=== PATIENT | female | born 1940 | race Caucasian/White ===

== ENCOUNTER 2017-08-21 15:14 | Inpatient (IN) | payer OTHER ==
--- NOTE | 2017-08-21 15:16 | PDOC ---
Rapid Medical Evaluation Time Seen by Provider: 08/21/17 15:14 Medical Evaluation: Allergies Allergy/AdvReac Type Severity Reaction Status Date / Time No Known Allergies Allergy Verified 01/28/15 23:27 08/21/17 15:15 This is a 77 year old female with a history of asthma, HTN, hypothyroidism, peptic ulcer, and HLD brought in by her family for shortness of breath, chest pain, and vomiting today. She has had these symptoms for two weeks since returning from a cruise, but they are worse today. Of note, she fell while on the cruise and was wheelchair-bound for over a week after that. V/s notable for HR 104. EKG Cardiac labs CXR To Main ED for further evaluation
[2017-08-21 16:04] LABS: BASO % 0.5 % (0-2.0); EOS % 1.7 % (0-4.5); HEMATOCRIT 35.5 % (32.4-45.2); LYMPH % 11.3 % (8-40); MCH 30.9 pg (25.7-33.7); MCHC 33.7 g/dl (32.0-36.0); MEAN CELL VOLUME 91.6 fl (80-96); MONO % 3.2 % (3.8-10.2); NEUT % 83.3 % (42.8-82.8); PLATELET COUNT 458 K/MM3 (134-434); RBC 3.88 M/mm3 (3.60-5.2); RDW 14.3 % (11.6-15.6); WHITE BLOOD COUNT 11.2 K/mm3 (4.0-10.0)
[2017-08-21 16:35] LABS: ALBUMIN 3.8 g/dl (3.4-5.0); ANION GAP 9 (8-16); BLOOD UREA NITROGEN 46 mg/dL (7-18); CHLORIDE 103 mmol/L (98-107); CO2 25 mmol/L (21-32); GLUCOSE,RANDOM 173 mg/dL (74-106); POTASSIUM 4.2 mmol/L (3.5-5.1); SGOT/AST 15 U/L (15-37); SODIUM 137 mmol/L (136-145)
[2017-08-21 16:41] LABS: ALK PHOS 126 U/L (45-117); BILIRUBIN,TOTAL 0.3 mg/dL (0.2-1.0); CREATININE 1.5 mg/dL (0.55-1.02); SGPT/ALT 19 U/L (12-78); TOT PROT 7.5 g/dl (6.4-8.2)
[2017-08-21 16:45] LABS: INR 1.02 (0.82-1.09); PROTHROMBIN TIME (PATIENT) 11.5 SEC (9.98-11.88)
[2017-08-21 16:51] LABS: URINE APPEARANCE CLEAR; URINE BILIRUBIN NEGATIVE (NEGATIVE); URINE BLOOD 2+ (NEGATIVE); URINE COLOR YELLOW; URINE GLUCOSE (UA) NEGATIVE (NEGATIVE); URINE KETONE NEGATIVE (NEGATIVE); URINE LEUK ESTERASE TRACE (NEGATIVE); URINE NITRITE NEGATIVE (NEGATIVE); URINE PROTEIN NEGATIVE (NEGATIVE)
[2017-08-21 17:08] LABS: LIPASE 480 U/L (73-393)
[2017-08-21 17:14] LABS: EPI CELLS RARE /HPF (FEW); URINE HYALINE CAST 1 /lpf; URINE MUCUS RARE
[2017-08-21] MEDS ORDERED: PANTOPRAZOLE SODIUM 40 MG in SODIUM CHLORIDE 100 ML IVPB ONE (20:03)
[2017-08-21] MEDS ORDERED: ONDANSETRON 4 MG/2 ML VIAL IVPUSH ONE (20:03)
[2017-08-21] MEDS ORDERED: SODIUM CHLORIDE 0.9% 1000 ML INFUS.BAG IV ONE (20:03)
[2017-08-21] MEDS ORDERED: FAMOTIDINE 20 MG/50 ML IVPB 20 MG/50 ML MG IVPB ONE ×2 (20:15→20:53)
[2017-08-21] MEDS ORDERED: PANTOPRAZOLE SODIUM 40 MG VIAL ONE (20:22)
[2017-08-21] MEDS ORDERED: ONDANSETRON 4 MG/2 ML VIAL ONE (20:22)
--- NOTE | 2017-08-21 20:22 | PDOC ---
History of Present Illness - General Chief Complaint: Pain Stated Complaint: CHEST PAIN Time Seen by Provider: 08/21/17 15:14 History Source: Patient, Family Exam Limitations: No Limitations - History of Present Illness Initial Comments: 08/21/17 20:13 The patient is a 77F with a PMH of asthma, HTN, hypothyroidism, peptic ulcer, and HLD who presents to the ER with approximately 15 days of vomiting and abdominal pain. The patient states that her abdominal pain is epigastric, radiates bilaterally across her abdomen horizontally, and occurs after eating foods. She has been vomiting every time after eating food and cannot keep anything down. Of note, she was on a cruise for 2 weeks and the symptoms occurred after 1 week of being on the cruise. She denies any history of drinking or any drinking on the cruise. She admits to mild nausea and abdominal pain. She denies any fevers, chills, CP, SOB, diarrhea, or constipation. Past History - Past Medical History Allergies/Adverse Reactions: Allergies Allergy/AdvReac Type Severity Reaction Status Date / Time Sulfa (Sulfonamide Allergy Verified 08/21/17 15:15 Antibiotics) Home Medications: Ambulatory Orders Amlodipine Besylate [Norvasc -] 2.5 mg PO DAILY 01/28/15 Levothyroxine [Synthroid -] 50 mcg PO DAILY 01/28/15 Omeprazole [Prilosec (RX)] 20 mg PO DAILY 01/28/15 Paroxetine HCl [Paxil] 30 mg PO DAILY 01/28/15 Simvastatin [Zocor -] 20 mg PO HS 01/28/15 Valsartan [Diovan] 320 mg PO DAILY 01/28/15 Albuterol Sulfate [Proventil HFA Inhaler -] 1 - 2 inh PO TID 08/21/17 Prednisone [Deltasone -] 10 mg PO DAILY 08/21/17 Asthma: Yes COPD: No GI Disorders: Yes (gastric ulcer) HTN: Yes Hypercholesterolemia: Yes Thyroid Disease: Yes (hypo) - Immunization History Immunization Up to Date: Yes - Suicide/Smoking/Psychosocial Hx Smoking History: Never smoked Information on smoking cessation initiated: No Hx Alcohol Use: No Drug/Substance Use Hx: No Substance Use Type: None Review of Systems - Review of Systems Able to Perform ROS?: Yes Comments:: 08/21/17 20:23 GENERAL/CONSTITUTIONAL: No fever or chills. No weakness. HEAD, EYES, EARS, NOSE AND THROAT: No change in vision. No ear pain or discharge. No sore throat. CARDIOVASCULAR: No chest pain, palpitations, or lightheadedness. RESPIRATORY: No cough, wheezing, shortness of breath, or hemoptysis. GASTROINTESTINAL: Positive for abdominal pain, nausea, and vomiting. No diarrhea or constipation. GENITOURINARY: No dysuria, frequency, hematuria, or change in urination. MUSCULOSKELETAL: No joint or muscle swelling or pain. No neck or back pain. SKIN: No rash or lesions. NEUROLOGIC: No headache, numbness, tingling, weakness, loss of consciousness, or change in strength/sensation. ENDOCRINE: No increased thirst. No abnormal weight change. HEMATOLOGIC/LYMPHATIC: No anemia, easy bleeding, or history of blood clots. ALLERGIC/IMMUNOLOGIC: No hives or skin allergy. Is the patient limited Kenyan proficient: No *Physical Exam - Vital Signs Last Vital Signs Temp Pulse Resp BP Pulse Ox 98.3 F 104 H 18 113/72 100 08/21/17 15:16 08/21/17 15:16 08/21/17 15:16 08/21/17 15:16 08/21/17 15:16 - Physical Exam Comments: 08/21/17 20:24 GENERAL: Well developed, well nourished. Awake and alert. No acute distress. HEENT: Normocephalic, atraumatic. Hearing grossly normal. Moist mucous membranes. PERRLA, EOMI. No conjunctival pallor. Sclera are non-icteric. NECK: Supple. Full ROM. No JVD. CARDIOVASCULAR: Regular rate and rhythm. No murmurs, rubs, or gallops. PULMONARY: No evidence of respiratory distress. Lungs clear to auscultation bilaterally. No wheezing, rales or rhonchi. ABDOMINAL: Soft. Non-tender. Non-distended. No rebound or guarding. GENITOURINARY: No CVA tenderness bilaterally. MUSCULOSKELETAL: Normal range of motion at all joints. No bony deformities or tenderness. EXTREMITIES: No cyanosis. No clubbing. No edema. No calf tenderness. SKIN: Warm and dry. Normal capillary refill. No rashes. No jaundice. NEUROLOGICAL: Alert, awake, appropriate. Cranial nerves 2-12 intact. Normal speech. Gait is normal without ataxia. PSYCHIATRIC: Cooperative. Good eye contact. Appropriate mood and affect. Heart Score/ECG Review #1 ECG reviewed & interpreted by me at: 20:24 General ECG Interpretation: Sinus Rhythm, Normal Rate, Normal Intervals, No acute ischemic changes ED Treatment Course - LABORATORY CBC & Chemistry Diagram: 08/21/17 15:45 08/21/17 15:45 - ADDITIONAL ORDERS Additional order review: Laboratory Results 08/21/17 08/21/17 08/21/17 16:09 15:45 15:45 PT with INR 11.50 INR 1.02 Sodium 137 Potassium 4.2 Chloride 103 Carbon Dioxide 25 Anion Gap 9 BUN 46 H Creatinine 1.5 H Creat Clearance w eGFR 33.76 Random Glucose 173 H Calcium 9.0 Total Bilirubin 0.3 AST 15 ALT 19 Alkaline Phosphatase 126 H Creatine Kinase 58 Troponin I < 0.02 Total Protein 7.5 Albumin 3.8 Lipase 480 H Urine Color Yellow Urine Appearance Clear Urine pH 5.0 Ur Specific [place] 1.023 Urine Protein Negative Urine Glucose (UA) Negative Urine Ketones Negative Urine Blood 2+ H Urine Nitrite Negative Urine Bilirubin Negative Urine Urobilinogen 2.0 H Ur Leukocyte Esterase Trace Urine WBC (Auto) 1 Urine RBC (Auto) 2 Ur Epithelial Cells Rare Hyaline Casts 1 Urine Mucus Rare 08/21/17 15:45 RBC 3.88 MCV 91.6 MCHC 33.7 RDW 14.3 MPV 8.0 Neutrophils % 83.3 H Lymphocytes % 11.3 Monocytes % 3.2 L Eosinophils % 1.7 Basophils % 0.5 Medical Decision Making - Medical Decision Making 08/21/17 20:32 The patient is a 77F with a PMH of peptic ulcers who presents with epigastric pain with an elevated lipase. I am concerned for gallstone pancreatitis because the patient has no hx of drinking, worsening peptic ulcers 2/2 anti- inflammatory use. I will order a RUQ U/S to r/o gallstones, will give IVF, pepcid, protonix, and zofran. Pending imaging and disposition. 08/21/17 22:03 RUQ U/S negative for cholecystitis and cholelithiasis. Hospitalist microblogged for admission. 08/21/17 22:[address] De for admission. *DC/Admit/Observation/Transfer Diagnosis at time of Disposition: Epigastric pain - Discharge Dispostion Condition at time of disposition: Stable Admit: Yes - Referrals Referrals: Latoya Wilson MD [Primary Care Provider] - - Patient Instructions - Post Discharge Activity
--- NOTE | 2017-08-21 21:09 | PDOC ---
Attending Attestation - Resident Resident Name: NaveenRai hazel - ED Attending Attestation I have performed the following: I have examined & evaluated the patient, The case was reviewed & discussed with the resident, I agree w/resident's findings & plan, Exceptions are as noted - HPI HPI: 08/21/17 21:07 77 year old female pt c/ hx PUD, HLD p/w epigastric pain x 2 weeks. States has developed postprandial pain and emesis. States radiates to mid back. +nausea and vomiting. Denies diarrhea. States eating makes symptoms worse. Denies hx of gallstones or alcohol. No fevers, chills. Pt unable to tolerate much PO given pain. Came into ED. - Physicial Exam PE: 08/21/17 21:07 GENERAL: Awake, alert, and fully oriented, in no acute distress. HEAD: No signs of trauma EYES: PERRLA, EOMI, sclera anicteric, conjunctiva clear ENT: Auricles normal inspection, hearing grossly normal, nares patent, NECK: Normal ROM, supple LUNGS: Breath sounds equal, clear to auscultation bilaterally. No wheezes, and no crackles HEART: Regular rate and rhythm, normal S1 and S2, no murmurs, rubs or gallops ABDOMEN: Soft, normoactive bowel sounds. No guarding, no rebound. No masses. TTP epigastric. Negative abebe sign. EXTREMITIES: Normal range of motion, no edema. No clubbing or cyanosis. No cords, erythema, or tenderness NEUROLOGICAL: Cranial nerves II through XII grossly intact. Normal speech, normal gait SKIN: Warm, Dry, normal turgor, no rashes or lesions noted. - Medical Decision Making 08/21/17 21:08 CBC, BMP 08/21/17 15:45 08/21/17 15:45 CMP Sodium 137 mmol/L (136-145) 08/21/17 15:45 Potassium 4.2 mmol/L (3.5-5.1) 08/21/17 15:45 Chloride 103 mmol/L (98-107) 08/21/17 15:45 Carbon Dioxide 25 mmol/L (21-32) 08/21/17 15:45 Anion Gap 9 (8-16) 08/21/17 15:45 BUN 46 mg/dL (7-18) H 08/21/17 15:45 Creatinine 1.5 mg/dL (0.55-1.02) H 08/21/17 15:45 Creat Clearance w eGFR 33.76 (>60) 08/21/17 15:45 Random Glucose 173 mg/dL (74-106) H 08/21/17 15:45 Calcium 9.0 mg/dL (8.5-10.1) 08/21/17 15:45 Total Bilirubin 0.3 mg/dL (0.2-1.0) 08/21/17 15:45 AST 15 U/L (15-37) 08/21/17 15:45 ALT 19 U/L (12-78) 08/21/17 15:45 Alkaline Phosphatase 126 U/L (45-117) H 08/21/17 15:45 Creatine Kinase 58 IU/L (26-192) 08/21/17 15:45 Troponin I < 0.02 ng/ml (0.00-0.05) 08/21/17 15:45 Total Protein 7.5 g/dl (6.4-8.2) 08/21/17 15:45 Albumin 3.8 g/dl (3.4-5.0) 08/21/17 15:45 Lipase 480 U/L (73-393) H 08/21/17 15:45 Labs reviewed. Pt noted with lipase of 480. Symptoms appears concerning for pancreatitis. Will obtain RUQ u/s to r/o gallstones. Admit.
[2017-08-21] MEDS ORDERED: ONDANSETRON 4 MG/2 ML VIAL IVPUSH PRN (23:03)
--- NOTE | 2017-08-21 23:04 | HP ---
<Santino Smith - Last Filed: 08/22/17 00:55> CHIEF COMPLAINT: epigastric pain and vomiting HISTORY OF PRESENT ILLNESS: 77F with a PMH of asthma, HTN, hypothyroidism, peptic ulcer, and HLD came to er with a complaint of pain in epigastric area, nausea and vomiting since two week. Patient states that she has a fall 3 week ago and was started on anti-inflamatory drug by a doctor [place] for back pain. After taking that medicine for a week she started having epigastric pain, severe in intensity( now 3/10), burning type, intermittent, gets worse after eating, radiates to both side and back, gets better itself. She also reports vomiting after eating, contain food particle, no blood, vomit occurs 15-20 minutes after eating. She also reports that she is able to take her po meds and some time able to eat her meal. Today came to hospital vomiting got worse.Few days ago she went to urgent care for same problem and was advised to stop pain meds and was started on prednisone and albuterol for sob. Denies diarrhoea, blood in stool, change in weight, yellow discoloration of skin, abdominal distension. States she is passing a flatus. She also reports last EGD was done 4 years which showed ulcers and was started on omeprazol 20mg bis but she was only taking it once a day. Denies chest pain, sob, cough, palpitations, burning micturation, change in frequency of micturation. ER course was notable for: (1)cbc, cmp, ua, lipase (2)ultrasound Recent Travel: went on a [place]. PAST MEDICAL HISTORY: as above PAST SURGICAL HISTORY: none Social History: Smoking: stopped 30 years ago Alcohol: no Drugs: no Allergies Sulfa (Sulfonamide Antibiotics) Allergy (Verified 08/21/17 15:15) HOME MEDICATIONS: Home Medications Medication Instructions Recorded Amlodipine Besylate [Norvasc -] 2.5 mg PO DAILY 01/28/15 Levothyroxine [Synthroid -] 50 mcg PO DAILY 01/28/15 Omeprazole [Prilosec (RX)] 20 mg PO DAILY 01/28/15 Paroxetine HCl [Paxil] 30 mg PO DAILY 01/28/15 Simvastatin [Zocor -] 20 mg PO HS 01/28/15 Valsartan [Diovan] 320 mg PO DAILY 01/28/15 Albuterol Sulfate [Proventil HFA 1 - 2 inh PO TID 08/21/17 Inhaler -] Prednisone [Deltasone -] 10 mg PO DAILY 08/21/17 REVIEW OF SYSTEMS CONSTITUTIONAL: Absent: fever, chills, diaphoresis, , malaise, weight change HEENT: Absent: rhinorrhea, nasal congestion, throat pain, throat swelling, CARDIOVASCULAR: Absent: chest pain, syncope, palpitations, peripheral edema RESPIRATORY: Absent: cough, shortness of breath, dyspnea with exertion, GASTROINTESTINAL: as above GENITOURINARY: Absent: dysuria, frequency, urgency, hesitancy, hematuria, flank pain, genital pain MUSCULOSKELETAL: Absent: myalgia, arthralgia, SKIN: Absent: rash, itching, pallor ENDOCRINE: Absent: unexplained weight gain, unexplained weight loss, NEUROLOGIC: Absent: headache, focal weakness or paresthesias, PSYCHIATRIC: Absent: anxiety, depression, PHYSICAL EXAMINATION Vital Signs - 24 hr 08/21/17 15:16 Temperature 98.3 F Pulse Rate 104 H Respiratory 18 Rate Blood Pressure 113/72 O2 Sat by Pulse 100 Oximetry (%) GENERAL: Awake, alert, and fully oriented, in no acute distress. HEAD: Normal with no signs of trauma. EARS, NOSE, THROAT: Ears normal, nares patent, oropharynx clear without exudates. dry mucous membranes. NECK: Normal range of motion, supple without lymphadenopathy, LUNGS: Breath sounds equal, clear to auscultation bilaterally. mild crackles at base . No accessory muscle use. HEART: Regular rate and rhythm, normal S1 and S2 without murmur, rub or gallop. ABDOMEN: Soft, nontender, not distended, normoactive bowel sounds, no guarding, no rebound, no masses. MUSCULOSKELETAL: Normal range of motion at all joints. No bony deformities or tenderness. No CVA tenderness. UPPER EXTREMITIES: 2+ pulses, warm, well-perfused. LOWER EXTREMITIES: warm, well-perfused. SKIN: Warm, dry, Laboratory Results - last 24 hr 08/21/17 08/21/17 08/21/17 15:43 15:45 15:45 WBC 11.2 H RBC 3.88 Hgb 12.0 Hct 35.5 MCV 91.6 MCH 30.9 MCHC 33.7 RDW 14.3 Plt Count 458 H MPV 8.0 Neutrophils % 83.3 H Lymphocytes % 11.3 Monocytes % 3.2 L Eosinophils % 1.7 Basophils % 0.5 PT with INR 11.50 INR 1.02 Sodium Potassium Chloride Carbon Dioxide Anion Gap BUN Creatinine Creat Clearance w eGFR Random Glucose Calcium Total Bilirubin AST ALT Alkaline Phosphatase Creatine Kinase Troponin I Total Protein Albumin Total Amylase 124 H Lipase Urine Color Urine Appearance Urine pH Ur Specific El[place] Urine Protein Urine Glucose (UA) Urine Ketones Urine Blood Urine Nitrite Urine Bilirubin Urine Urobilinogen Ur Leukocyte Esterase Urine WBC (Auto) Urine RBC (Auto) Ur Epithelial Cells Hyaline Casts Urine Mucus 08/21/17 08/21/17 15:45 16:09 WBC RBC Hgb Hct MCV MCH MCHC RDW Plt Count MPV Neutrophils % Lymphocytes % Monocytes % Eosinophils % Basophils % PT with INR INR Sodium 137 Potassium 4.2 Chloride 103 Carbon Dioxide 25 Anion Gap 9 BUN 46 H Creatinine 1.5 H Creat Clearance w eGFR 33.76 Random Glucose 173 H Calcium 9.0 Total Bilirubin 0.3 AST 15 ALT 19 Alkaline Phosphatase 126 H Creatine Kinase 58 Troponin I < 0.02 Total Protein 7.5 Albumin 3.8 Total Amylase Lipase 480 H Urine Color Yellow Urine Appearance Clear Urine pH 5.0 Ur Specific [place] 1.023 Urine Protein Negative Urine Glucose (UA) Negative Urine Ketones Negative Urine Blood 2+ H Urine Nitrite Negative Urine Bilirubin Negative Urine Urobilinogen 2.0 H Ur Leukocyte Esterase Trace Urine WBC (Auto) 1 Urine RBC (Auto) 2 Ur Epithelial Cells Rare Hyaline Casts 1 Urine Mucus Rare ASSESSMENT/PLAN: 77F with a PMH of asthma, HTN, hypothyroidism, peptic ulcer, and HLD came to er with a complaint of pain in epigastric area, nausea and vomiting since two week. epigastric pain with nausea and vomiting.: more likely from peptic ulcer ds vs gastritis intermittent pain, gets worse with eating, burning type, h/o pain med intake, h/ o peptic ulcer ds. ultrasound no gallstone IV fluid IV protonic 40 bid IV zofran q6h prn add sucralfate ( patient was already on omeprazole, which didn't help) monitor intake/output monitor vitas npo for now avoid nsaid gi consult. TALIB likely pre renal monitor cr urine lytes monitor intake/output. avoid nephrotoxic drugs hold valsartan for now HTN continue with amlodipine hold valsartan monitor hypothyroidism c/w home med asthma albuterol prn' completed a course of prednisone few days ago. now stable fluidL ns 75ml/hr electrolyte: repeat in am nutrition: NPO for now. If symptoms get better consider starting on clear liquids dvt pro: scd b/l, ambulatory gi pro: protonix bid IV Dispo: med surg <Raheel Sun - Last Filed: 08/22/17 01:26> CHIEF COMPLAINT: Nausea and vomiting HISTORY OF PRESENT ILLNESS: Nausea, vomiting , retching x 2 weeks but worse past 3 days. Black contents at times . PAST MEDICAL HISTORY: Gastric Ulcer PAST SURGICAL HISTORY: Endoscopy $ years ago Social History: Smoking:no Alcohol:no Drugs: no Allergies Sulfa (Sulfonamide Antibiotics) Allergy (Verified 08/21/17 15:15) HOME MEDICATIONS: Home Medications Medication Instructions Recorded Amlodipine Besylate [Norvasc -] 2.5 mg PO DAILY 01/28/15 Levothyroxine [Synthroid -] 50 mcg PO DAILY 01/28/15 Omeprazole [Prilosec (RX)] 20 mg PO DAILY 01/28/15 Paroxetine HCl [Paxil] 30 mg PO DAILY 01/28/15 Simvastatin [Zocor -] 20 mg PO HS 01/28/15 Valsartan [Diovan] 320 mg PO DAILY 01/28/15 Albuterol Sulfate [Proventil HFA 1 - 2 inh PO TID 08/21/17 Inhaler -] Prednisone [Deltasone -] 10 mg PO DAILY 08/21/17 PHYSICAL EXAMINATION Vital Signs - 24 hr 08/21/17 08/22/17 08/22/17 15:16 00:19 00:54 Temperature 98.3 F 98.7 F 97.9 F Pulse Rate 104 H 83 Pulse Rate [ 98 H Left Radial] Respiratory 18 18 20 Rate Blood Pressure 113/72 108/60 Blood Pressure 136/72 [Right Arm] O2 Sat by Pulse 100 98 Oximetry (%) GENERAL: Awake, alert, and fully oriented, in no acute distress. HEAD: Normal with no signs of trauma. EYES: Pupils equal, round and reactive to light, extraocular movements intact, sclera anicteric, conjunctiva clear. No lid lag. EARS, NOSE, THROAT: Ears normal, nares patent, oropharynx clear without exudates. Moist mucous membranes. NECK: Normal range of motion, supple without lymphadenopathy, JVD, or masses. LUNGS: Breath sounds equal, clear to auscultation bilaterally. No wheezes, and no crackles. No accessory muscle use. HEART: Regular rate and rhythm, normal S1 and S2 without murmur, rub or gallop. ABDOMEN: Soft, mild epigastric tenderness not distended, normoactive bowel sounds, no guarding, no rebound, no masses. No hepatomegaly or splenomegaly. MUSCULOSKELETAL: Normal range of motion at all joints. No bony deformities or tenderness. No CVA tenderness. UPPER EXTREMITIES: 2+ pulses, warm, well-perfused. No cyanosis. No clubbing. No peripheral edema. LOWER EXTREMITIES: 2+ pulses, warm, well-perfused. No calf tenderness. No peripheral edema. NEUROLOGICAL: Cranial nerves II-XII intact. Normal speech. Normal gait. PSYCHIATRIC: Cooperative. Good eye contact. Appropriate mood and affect. SKIN: Warm, dry, normal turgor, no rashes or lesions noted, normal capillary refill. Laboratory Results - last 24 hr 08/21/17 08/21/17 08/21/17 15:43 15:45 15:45 WBC 11.2 H RBC 3.88 Hgb 12.0 Hct 35.5 MCV 91.6 MCH 30.9 MCHC 33.7 RDW 14.3 Plt Count 458 H MPV 8.0 Neutrophils % 83.3 H Lymphocytes % 11.3 Monocytes % 3.2 L Eosinophils % 1.7 Basophils % 0.5 PT with INR 11.50 INR 1.02 Sodium Potassium Chloride Carbon Dioxide Anion Gap BUN Creatinine Creat Clearance w eGFR Random Glucose Calcium Total Bilirubin AST ALT Alkaline Phosphatase Creatine Kinase Troponin I Total Protein Albumin Total Amylase 124 H Lipase Urine Color Urine Appearance Urine pH Ur Specific [place] Urine Protein Urine Glucose (UA) Urine Ketones Urine Blood Urine Nitrite Urine Bilirubin Urine Urobilinogen Ur Leukocyte Esterase Urine WBC (Auto) Urine RBC (Auto) Ur Epithelial Cells Hyaline Casts Urine Mucus 08/21/17 08/21/17 15:45 16:09 WBC RBC Hgb Hct MCV MCH MCHC RDW Plt Count MPV Neutrophils % Lymphocytes % Monocytes % Eosinophils % Basophils % PT with INR INR Sodium 137 Potassium 4.2 Chloride 103 Carbon Dioxide 25 Anion Gap 9 BUN 46 H Creatinine 1.5 H Creat Clearance w eGFR 33.76 Random Glucose 173 H Calcium 9.0 Total Bilirubin 0.3 AST 15 ALT 19 Alkaline Phosphatase 126 H Creatine Kinase 58 Troponin I < 0.02 Total Protein 7.5 Albumin 3.8 Total Amylase Lipase 480 H Urine Color Yellow Urine Appearance Clear Urine pH 5.0 Ur Specific [place] 1.023 Urine Protein Negative Urine Glucose (UA) Negative Urine Ketones Negative Urine Blood 2+ H Urine Nitrite Negative Urine Bilirubin Negative Urine Urobilinogen 2.0 H Ur Leukocyte Esterase Trace Urine WBC (Auto) 1 Urine RBC (Auto) 2 Ur Epithelial Cells Rare Hyaline Casts 1 Urine Mucus Rare ASSESSMENT/PLAN: Patient is seen and examined with Dr Smith PLan above reviewed and agree. NPO Clear Liquids IVF GI evaluation in am -cbc Carafate , Omeprasole Visit type - Emergency Visit Emergency Visit: Yes ED Registration Date: 08/21/17 Care time: The patient presented to the Emergency Department on the above date and was hospitalized for further evaluation of their emergent condition. - New Patient This patient is new to me today: Yes Date on this admission: 08/22/17 - Critical Care Critical Care patient: No
[2017-08-21] MEDS: SODIUM CHLORIDE 1,000 ML IV SCH (23:10)
[2017-08-22 00:58] VITALS: BMI 24.1
[2017-08-22] MEDS: LEVOTHYROXINE NA 50 MCG TABLET (FP) PO SCH (06:12)
[2017-08-22 08:46] LABS: BASO % 0.9 % (0-2.0); EOS % 3.9 % (0-4.5); HEMOGLOBIN 9.9 GM/dL (10.7-15.3); LYMPH % 28.4 % (8-40); MCH 30.5 pg (25.7-33.7); MCHC 33.1 g/dl (32.0-36.0); MEAN CELL VOLUME 92.1 fl (80-96); MEAN PLT VOLUME 7.8 fl (7.5-11.1); MONO % 6.9 % (3.8-10.2); NEUT % 59.9 % (42.8-82.8); PLATELET COUNT 342 K/MM3 (134-434); RBC 3.26 M/mm3 (3.60-5.2); RDW 13.9 % (11.6-15.6)
[2017-08-22 08:50] LABS: INR 1.02 (0.82-1.09); PROTHROMBIN TIME (PATIENT) 11.5 SEC (9.98-11.88)
[2017-08-22 09:01] LABS: ALBUMIN 3.1 g/dl (3.4-5.0); ANION GAP 5 (8-16); BILIRUBIN,TOTAL 0.4 mg/dL (0.2-1.0); BLOOD UREA NITROGEN 39 mg/dL (7-18); CALCIUM 8.1 mg/dL (8.5-10.1); CHLORIDE 108 mmol/L (98-107); CO2 27 mmol/L (21-32); CREATININE 1.4 mg/dL (0.55-1.02); GLUCOSE,RANDOM 75 mg/dL (74-106); LIPASE 167 U/L (73-393); MAGNESIUM 1.9 mg/dL (1.8-2.4); PHOSPHOROUS 3.3 mg/dL (2.5-4.9); POTASSIUM 4.2 mmol/L (3.5-5.1); SGOT/AST 10 U/L (15-37); SGPT/ALT 16 U/L (12-78); SODIUM 140 mmol/L (136-145); TOT PROT 6.1 g/dl (6.4-8.2)
[2017-08-22 09:04] LABS: ALK PHOS 101 U/L (45-117)
[2017-08-22] MEDS ORDERED: PT OWN MED DRAWER 7, Y5N ONE ×2 (09:33→10:12)
[2017-08-22] MEDS ORDERED: amLODIPine BESYLATE 2.5 MG TABLET (FP) PO SCH (10:00)
[2017-08-22] MEDS ORDERED: VALSARTAN 160 MG TABLET (UD) PO SCH (10:00)
--- NOTE | 2017-08-22 10:09 | EKG ---
Test Reason : Blood Pressure : / mmHG Vent. Rate : 097 BPM Atrial Rate : 097 BPM P-R Int : 128 ms QRS Dur : 076 ms QT Int : 360 ms P-R-T Axes : 039 002 033 degrees QTc Int : 457 ms NORMAL SINUS RHYTHM NORMAL ECG NO PREVIOUS ECGS AVAILABLE Confirmed by IRLANDA LEBLANC MD ([id number]) on 08/22/2017 10:09:26 AM Referred By: Confirmed By:IRLANDA LEBLANC MD
[2017-08-22] MEDS: PANTOPRAZOLE SODIUM 40 MG VIAL IVPUSH SCH ×2 (10:35→21:54)
[2017-08-22] MEDS: PARoxetine HCL 10 MG TABLET (FP) PO SCH (10:36)
[2017-08-22] MEDS: SUCRALFATE 1 GM TABLET (FP) PO SCH ×2 (11:10→21:54)
[2017-08-22 11:56] LABS: TRIGLYCERIDES 163 mg/dL (35-160)
--- NOTE | 2017-08-22 13:40 | CON.GI ---
Consult Consult Specialty:: GI - History of Present Illness History of Present Illness: Chart reviewed. ED course noted. 77F with a PMH of asthma, HTN, hypothyroidism, peptic ulcer, and HLD came to er with a complaint of pain in epigastric area, nausea and vomiting for two week. Patient states that she has a fall 3 week ago and was started on anti- inflammatory drug by a doctor on [place] for back pain. After taking that medicine for a week she started having epigastric pain, severe in intensity ( now 3/10), burning type, intermittent, gets worse after eating, radiates to both side and back, gets better itself. She also reports vomiting after eating, contain food particle, no blood, vomit occurs 15-20 minutes after eating. She also reports that she is able to take her po meds and some time able to eat her meal. Today came to hospital vomiting got worse.Few days ago she went to urgent care for same problem and was advised to stop pain meds and was started on prednisone and albuterol for sob. Denies diarrhoea, blood in stool, change in weight, yellow discoloration of skin, abdominal distension. States she is passing a flatus. She also reports last EGD was done 5 years which showed ulcers and was started on omeprazole 20mg bid, but she was only taking it once a day. Denies fever, chills, hematemesis, dysphagia, odynophagia, jaundice, altered bowels, pencil-thin, or ribbon-like stools. Denies melena, hematochezia , weight loss. At the time of this encounter, the patient is not in distress, ambulating. - History Source History Provided By: Patient, Medical Record - Alcohol/Substance Use Hx Alcohol Use: No - Smoking History Smoking history: Never smoked Home Medications - Allergies Allergies/Adverse Reactions: Allergies Allergy/AdvReac Type Severity Reaction Status Date / Time Sulfa (Sulfonamide Allergy Verified 08/21/17 15:15 Antibiotics) - Home Medications Home Medications: Ambulatory Orders Amlodipine Besylate [Norvasc -] 2.5 mg PO DAILY 01/28/15 Levothyroxine [Synthroid -] 50 mcg PO DAILY 01/28/15 Omeprazole [Prilosec (RX)] 20 mg PO DAILY 01/28/15 Paroxetine HCl [Paxil] 30 mg PO DAILY 01/28/15 Simvastatin [Zocor -] 20 mg PO HS 01/28/15 Valsartan [Diovan] 320 mg PO DAILY 01/28/15 Albuterol Sulfate [Proventil HFA Inhaler -] 1 - 2 inh PO TID 08/21/17 Prednisone [Deltasone -] 10 mg PO DAILY 08/21/17 Family Disease History - Family Disease History Family History: Unremarkable (non-contributory) Review of Systems Findings/Remarks: As per HPI, H&P Physical Exam-GI Vital Signs: Vital Signs Temperature 97.9 F 08/22/17 10:00 Pulse Rate 86 08/22/17 10:00 Respiratory Rate 20 08/22/17 10:00 Blood Pressure 105/58 08/22/17 10:00 O2 Sat by Pulse Oximetry (%) 96 08/22/17 10:00 Constitutional: Yes: Well Nourished, No Distress, Calm Eyes: Yes: Conjunctiva Clear HENT: Yes: Atraumatic Neck: Yes: Supple Cardiovascular: Yes: Regular Rate and Rhythm Respiratory: Yes: Regular Gastrointestinal Inspection: No: Distention ...Auscultate: Yes: Normoactive Bowel Sounds ...Palpate: Yes: Soft. No: Firm/Rigid, Guarding, Tenderness Neurological: Yes: Alert, Oriented Labs: CBC, BMP 08/22/17 07:20 08/22/17 07:20 INR, PTT INR 1.02 (0.82-1.09) 08/22/17 07:20 Laboratory Tests 08/21/17 08/21/17 08/21/17 15:43 15:45 15:45 WBC 11.2 H RBC 3.88 Hgb 12.0 Hct 35.5 MCV 91.6 MCH 30.9 MCHC 33.7 RDW 14.3 Plt Count 458 H MPV 8.0 Neutrophils % 83.3 H Lymphocytes % 11.3 Monocytes % 3.2 L Eosinophils % 1.7 Basophils % 0.5 PT with INR 11.50 INR 1.02 Sodium Potassium Chloride Carbon Dioxide Anion Gap BUN Creatinine Creat Clearance w eGFR Random Glucose Calcium Phosphorus Magnesium Total Bilirubin AST ALT Alkaline Phosphatase Creatine Kinase Troponin I Total Protein Albumin Triglycerides Total Amylase 124 H Lipase Urine Color Urine Appearance Urine pH Ur Specific [place] Urine Protein Urine Glucose (UA) Urine Ketones Urine Blood Urine Nitrite Urine Bilirubin Urine Urobilinogen Ur Leukocyte Esterase Urine WBC (Auto) Urine RBC (Auto) Ur Epithelial Cells Hyaline Casts Urine Mucus 08/21/17 08/21/17 08/22/17 15:45 16:09 07:20 WBC 6.0 D RBC 3.26 L Hgb 9.9 L D Hct 30.0 L D MCV 92.1 MCH 30.5 MCHC 33.1 RDW 13.9 Plt Count 342 D MPV 7.8 Neutrophils % 59.9 D Lymphocytes % 28.4 D Monocytes % 6.9 D Eosinophils % 3.9 D Basophils % 0.9 PT with INR INR Sodium 137 Potassium 4.2 Chloride 103 Carbon Dioxide 25 Anion Gap 9 BUN 46 H Creatinine 1.5 H Creat Clearance w eGFR 33.76 Random Glucose 173 H Calcium 9.0 Phosphorus Magnesium Total Bilirubin 0.3 AST 15 ALT 19 Alkaline Phosphatase 126 H Creatine Kinase 58 Troponin I < 0.02 Total Protein 7.5 Albumin 3.8 Triglycerides Total Amylase Lipase 480 H Urine Color Yellow Urine Appearance Clear Urine pH 5.0 Ur Specific [place] 1.023 Urine Protein Negative Urine Glucose (UA) Negative Urine Ketones Negative Urine Blood 2+ H Urine Nitrite Negative Urine Bilirubin Negative Urine Urobilinogen 2.0 H Ur Leukocyte Esterase Trace Urine WBC (Auto) 1 Urine RBC (Auto) 2 Ur Epithelial Cells Rare Hyaline Casts 1 Urine Mucus Rare 08/22/17 08/22/17 08/22/17 07:20 07:20 11:10 WBC RBC Hgb Hct MCV MCH MCHC RDW Plt Count MPV Neutrophils % Lymphocytes % Monocytes % Eosinophils % Basophils % PT with INR 11.50 INR 1.02 Sodium 140 Potassium 4.2 Chloride 108 H Carbon Dioxide 27 Anion Gap 5 L BUN 39 H Creatinine 1.4 H Creat Clearance w eGFR 36.56 Random Glucose 75 Calcium 8.1 L Phosphorus 3.3 Magnesium 1.9 Total Bilirubin 0.4 D AST 10 L ALT 16 Alkaline Phosphatase 101 Creatine Kinase Troponin I < 0.02 Total Protein 6.1 L Albumin 3.1 L Triglycerides 163 H Cancelled Total Amylase Lipase 167 Urine Color Urine Appearance Urine pH Ur Specific [place] Urine Protein Urine Glucose (UA) Urine Ketones Urine Blood Urine Nitrite Urine Bilirubin Urine Urobilinogen Ur Leukocyte Esterase Urine WBC (Auto) Urine RBC (Auto) Ur Epithelial Cells Hyaline Casts Urine Mucus Imaging - Results Ultrasound: Report Reviewed Problem List - Problems (1) Gastric ulcer Code(s): K25.9 - GASTRIC ULCER, UNSP ACUTE OR CHRONIC, W/O HEMOR OR PERF (2) Epigastric pain Code(s): R10.13 - EPIGASTRIC PAIN Assessment/Plan A 77 yof with history of gastric ulcer 5 y. ago now with epigastric pain, nausea , leukocytosis, mild lipase. No signs of bleeding, surgical abdomen, or toxicity on exam. Clear liquid diet IV/PO hydration Antiemetics PPI PO BID Carafate po qid (hold on Friday) Daily Hgb, monitor stools for melena EGD on Friday
[2017-08-22] MEDS ORDERED: CYCLOBENZAPRINE HCL 10 MG TABLET (FP) PO PRN (13:41)
--- NOTE | 2017-08-22 15:30 | PN ---
Teaching Attending Note Name of Resident: Dm De Los Santos ATTENDING PHYSICIAN STATEMENT Time of evaluation: 10:55 AM I saw and evaluated the patient. I reviewed the resident's note and discussed the case with the resident. I agree with the resident's findings and plan as documented. SUBJECTIVE: patient seen and examined. reports occasional epigastric pain thats partly burning, partly sharp in character, no radiation. Association with food. Reports right lower flank pain since fall on the [place] 2 weeks ago thats better now. No bowel or urinary symptoms. Was also seen at urgent care recently for cough/URI like illness and placed on prednisone. Currently back pain overall better. epigastric pain is intermittent and improved. No nausea, vomiting or diarrhea since in the hospital. 2 weeks ago some melena, none recently. reports feeling hungry. OBJECTIVE: Vital Signs Period Temp Pulse Resp BP Sys/Stallworth Pulse Ox Last 24 Hr 97.7 F-98.7 F 83-98 18-21 105-136/50-72 96-98 Intake & Output 08/19/17 08/20/17 08/21/17 08/22/17 23:59 23:59 23:59 23:59 Intake Total 800 Balance 800 Weight 140 lb 132 lb 1 oz General: sitting in chair in no acute distress Abdomen: soft, no epigastric tenderness on superficial or deep palpation, no voluntary or involuntary guarding or rigidity, positive bowel sounds Musculoskeletal: right flank muscular spasm appreciated, some pain with with twisting but no limitation noted, LE power 5/5, sensation intact to light touch Chest: CTAB, no rales or wheezing Home Medication List Medication Instructions Recorded Confirmed Type Amlodipine Besylate [Norvasc -] 2.5 mg PO DAILY 01/28/15 08/21/17 History Levothyroxine [Synthroid -] 50 mcg PO DAILY 01/28/15 08/21/17 History Omeprazole [Prilosec (RX)] 20 mg PO DAILY 01/28/15 08/21/17 History Paroxetine HCl [Paxil] 30 mg PO DAILY 01/28/15 08/21/17 History Simvastatin [Zocor -] 20 mg PO HS 01/28/15 08/21/17 History Valsartan [Diovan] 320 mg PO DAILY 01/28/15 08/21/17 History Albuterol Sulfate [Proventil HFA 1 - 2 inh PO TID 08/21/17 08/21/17 History Inhaler -] Prednisone [Deltasone -] 10 mg PO DAILY 08/21/17 08/21/17 History Active Medications Generic Name Dose Route Start Last Admin Trade Name Freq PRN Reason Stop Dose Admin Atorvastatin Calcium 10 mg 08/22/17 22:00 Lipitor - PO HS DAVID Cyclobenzaprine HCl 5 mg 08/22/17 13:41 Flexeril - PO TID PRN BACK PAIN Sodium Chloride 1,000 mls @ 75 mls/hr 08/21/17 23:00 08/21/17 23:10 Normal Saline - IV 75 mls/hr ASDIR DAVID Administration Levothyroxine Sodium 50 mcg 08/22/17 07:00 08/22/17 06:12 Synthroid - PO 50 mcg DAILY@0700 DAVID Administration Ondansetron HCl 4 mg 08/21/17 23:03 Zofran Injection IVPUSH Q6H PRN NAUSEA AND/OR VOMITING Pantoprazole Sodium 40 mg 08/22/17 10:00 08/22/17 10:35 Protonix Iv IVPUSH 40 mg BID DAVID Administration Paroxetine HCl 30 mg 08/22/17 10:00 08/22/17 10:36 Paxil - PO Not Given DAILY [facility] Sucralfate 1 gm 08/22/17 10:00 08/22/17 11:10 Carafate - PO 1 gm BID DAVID Administration Laboratory Results - last 24 hr 08/21/17 08/21/17 08/21/17 15:43 15:45 15:45 WBC 11.2 H RBC 3.88 Hgb 12.0 Hct 35.5 MCV 91.6 MCH 30.9 MCHC 33.7 RDW 14.3 Plt Count 458 H MPV 8.0 Neutrophils % 83.3 H Lymphocytes % 11.3 Monocytes % 3.2 L Eosinophils % 1.7 Basophils % 0.5 PT with INR 11.50 INR 1.02 Sodium Potassium Chloride Carbon Dioxide Anion Gap BUN Creatinine Creat Clearance w eGFR Random Glucose Calcium Phosphorus Magnesium Total Bilirubin AST ALT Alkaline Phosphatase Creatine Kinase Troponin I Total Protein Albumin Triglycerides Total Amylase 124 H Lipase Urine Color Urine Appearance Urine pH Ur Specific [place] Urine Protein Urine Glucose (UA) Urine Ketones Urine Blood Urine Nitrite Urine Bilirubin Urine Urobilinogen Ur Leukocyte Esterase Urine WBC (Auto) Urine RBC (Auto) Ur Epithelial Cells Hyaline Casts Urine Mucus 08/21/17 08/21/17 08/22/17 15:45 16:09 07:20 WBC 6.0 D RBC 3.26 L Hgb 9.9 L D Hct 30.0 L D MCV 92.1 MCH 30.5 MCHC 33.1 RDW 13.9 Plt Count 342 D MPV 7.8 Neutrophils % 59.9 D Lymphocytes % 28.4 D Monocytes % 6.9 D Eosinophils % 3.9 D Basophils % 0.9 PT with INR INR Sodium 137 Potassium 4.2 Chloride 103 Carbon Dioxide 25 Anion Gap 9 BUN 46 H Creatinine 1.5 H Creat Clearance w eGFR 33.76 Random Glucose 173 H Calcium 9.0 Phosphorus Magnesium Total Bilirubin 0.3 AST 15 ALT 19 Alkaline Phosphatase 126 H Creatine Kinase 58 Troponin I < 0.02 Total Protein 7.5 Albumin 3.8 Triglycerides Total Amylase Lipase 480 H Urine Color Yellow Urine Appearance Clear Urine pH 5.0 Ur Specific [place] 1.023 Urine Protein Negative Urine Glucose (UA) Negative Urine Ketones Negative Urine Blood 2+ H Urine Nitrite Negative Urine Bilirubin Negative Urine Urobilinogen 2.0 H Ur Leukocyte Esterase Trace Urine WBC (Auto) 1 Urine RBC (Auto) 2 Ur Epithelial Cells Rare Hyaline Casts 1 Urine Mucus Rare 08/22/17 08/22/17 08/22/17 07:20 07:20 11:10 WBC RBC Hgb Hct MCV MCH MCHC RDW Plt Count MPV Neutrophils % Lymphocytes % Monocytes % Eosinophils % Basophils % PT with INR 11.50 INR 1.02 Sodium 140 Potassium 4.2 Chloride 108 H Carbon Dioxide 27 Anion Gap 5 L BUN 39 H Creatinine 1.4 H Creat Clearance w eGFR 36.56 Random Glucose 75 Calcium 8.1 L Phosphorus 3.3 Magnesium 1.9 Total Bilirubin 0.4 D AST 10 L ALT 16 Alkaline Phosphatase 101 Creatine Kinase Troponin I < 0.02 Total Protein 6.1 L Albumin 3.1 L Triglycerides 163 H Cancelled Total Amylase Lipase 167 Urine Color Urine Appearance Urine pH Ur Specific [place] Urine Protein Urine Glucose (UA) Urine Ketones Urine Blood Urine Nitrite Urine Bilirubin Urine Urobilinogen Ur Leukocyte Esterase Urine WBC (Auto) Urine RBC (Auto) Ur Epithelial Cells Hyaline Casts Urine Mucus Abdominal ultrasound results noted ASSESSMENT AND PLAN: 77F with a PMH of asthma, HTN, hypothyroidism, peptic ulcer, and HLD, with recent lumbar sprain on [place], treated with ?pain meds, also URI/cough on prednisone last week, comes with epigastric pain/nausea,vomiting, associated with PO intake. -Epigastric pain/nausea/vomitting, suspicious for PUD flared likely from her ? pain meds on cruise/recent steroids vs ?mild pancreatitis -Acute anemia, ?hemoconcentrated on admission, now with dilution, cannot r/o occult GIB -Right lumbar sprain -recent ?URI/asthma exacerbation -TALIB, likely hypovolumic from poor oral intake -Hypothyroidism -HLD Plan: Suspect her epigastric symptoms likely from PUD that was exacerbated by ?pain meds on [place] and prednisone for her asthma exacerbation. Abdominal exam benign currently, no acute concerns. GI input appreciated. Continue PPI IV BID, carafate QID. hold carafate on Friday. Advance to clears for now. NPO after midnight on Friday. Plan for EGD on friday. malignancy low on differential but cannot r/o given h/o weight loss and no recent follow up. Imaging with pancreatitis, unclear etiology. ?If adjacent findings from duodenal inflammation though abdominal exam is benign currently. repeat CBC this afternoon, no gross evidence of bleed or hemodynamic instability , however h/o melena. Check iron panel, EGD as above. Hold valsartan. Continue IVF, monitor renal function. Check urine lytes. flexeril 5 mg TID prn and tylenol prn. PT eval. D/c steroids as patient no bronchospastc concerns currently. Continue amlodipine as tolerated, levothyroxine. DVTPPX with SCDs. avoid heparin Dispo pending resolution of medical issues. Plan discussed with Dr. Kraft and patient in detail, all questions answered.
[2017-08-22 17:07] LABS: HEMATOCRIT 30.2 % (32.4-45.2); HEMOGLOBIN 10.1 GM/dL (10.7-15.3); MCH 30.9 pg (25.7-33.7); MCHC 33.6 g/dl (32.0-36.0); MEAN PLT VOLUME 7.9 fl (7.5-11.1); PLATELET COUNT 387 K/MM3 (134-434); RBC 3.28 M/mm3 (3.60-5.2); RDW 14.3 % (11.6-15.6); WHITE BLOOD COUNT 6.3 K/mm3 (4.0-10.0)
[2017-08-22] MEDS: SODIUM CHLORIDE 1,000 ML IV SCH (18:06)
--- NOTE | 2017-08-22 19:29 | PN ---
Physical Exam: SUBJECTIVE: Patient seen and examined. Says she feels much better today than yesterday. Says she still has a 7/10 intermitted epigastric pain but less intense than yesterday. Says she lost over 10 pounds in 1 month. She denies bloody stools, diarrhea, hematemesis, nausea, vomiting, chest pain, dizziness, dysuria. OBJECTIVE: Vital Signs Period Temp Pulse Resp BP Sys/[place]worth Pulse Ox Last 24 Hr 97.7 F-98.7 F 83-98 18-21 105-136/50-72 96-98 GENERAL: The patient is awake, alert, and fully oriented, in no acute distress. HEAD: Normal with no signs of trauma. EYES: PERRL, extraocular movements intact, sclera anicteric, conjunctiva clear. No ptosis. ENT: oropharynx clear without exudates, moist mucous membranes. NECK: supple. LUNGS: Breath sounds equal, clear to auscultation bilaterally, no wheezes, no crackles, no accessory muscle use. HEART: Regular rate and rhythm, S1, S2 without murmur, rub or gallop. ABDOMEN: Soft, nontender, nondistended, normoactive bowel sounds, no guarding, no rebound, no hepatosplenomegaly, no masses. EXTREMITIES: 2+ pulses, warm, well-perfused, no edema. NEUROLOGICAL: Cranial nerves II through XII grossly intact. Normal speech, gait not observed. PSYCH: Normal mood, normal affect. SKIN: Warm, dry, normal turgor, no rashes or lesions noted Laboratory Results - last 24 hr 08/21/17 08/22/17 08/22/17 15:43 07:20 07:20 WBC 6.0 D RBC 3.26 L Hgb 9.9 L D Hct 30.0 L D MCV 92.1 MCH 30.5 MCHC 33.1 RDW 13.9 Plt Count 342 D MPV 7.8 Neutrophils % 59.9 D Lymphocytes % 28.4 D Monocytes % 6.9 D Eosinophils % 3.9 D Basophils % 0.9 PT with INR 11.50 INR 1.02 Sodium Potassium Chloride Carbon Dioxide Anion Gap BUN Creatinine Creat Clearance w eGFR Random Glucose Calcium Phosphorus Magnesium Total Bilirubin AST ALT Alkaline Phosphatase Troponin I Total Protein Albumin Triglycerides Total Amylase 124 H Lipase 08/22/17 08/22/17 08/22/17 07:20 11:10 16:45 WBC 6.3 RBC 3.28 L Hgb 10.1 L Hct 30.2 L MCV 92.0 MCH 30.9 MCHC 33.6 RDW 14.3 Plt Count 387 MPV 7.9 Neutrophils % Lymphocytes % Monocytes % Eosinophils % Basophils % PT with INR INR Sodium 140 Potassium 4.2 Chloride 108 H Carbon Dioxide 27 Anion Gap 5 L BUN 39 H Creatinine 1.4 H Creat Clearance w eGFR 36.56 Random Glucose 75 Calcium 8.1 L Phosphorus 3.3 Magnesium 1.9 Total Bilirubin 0.4 D AST 10 L ALT 16 Alkaline Phosphatase 101 Troponin I < 0.02 Total Protein 6.1 L Albumin 3.1 L Triglycerides 163 H Cancelled Total Amylase Lipase 167 Active Medications Generic Name Dose Route Start Last Admin Trade Name Freq PRN Reason Stop Dose Admin Acetaminophen 650 mg 08/22/17 15:34 Tylenol - PO Q6H PRN PAIN LEVEL 1-5 Atorvastatin Calcium 10 mg 08/22/17 22:00 Lipitor - PO HS DAVID Cyclobenzaprine HCl 5 mg 08/22/17 13:41 Flexeril - PO TID PRN BACK PAIN Sodium Chloride 1,000 mls @ 75 mls/hr 08/21/17 23:00 08/22/17 18:06 Normal Saline - IV 75 mls/hr ASDIR DAVID Administration Levothyroxine Sodium 50 mcg 08/22/17 07:00 08/22/17 06:12 Synthroid - PO 50 mcg DAILY@0700 DAVID Administration Ondansetron HCl 4 mg 08/21/17 23:03 Zofran Injection IVPUSH Q6H PRN NAUSEA AND/OR VOMITING Pantoprazole Sodium 40 mg 08/22/17 10:00 08/22/17 10:35 Protonix Iv IVPUSH 40 mg BID DAVID Administration Paroxetine HCl 30 mg 08/22/17 10:00 08/22/17 10:36 Paxil - PO Not Given DAILY DAVID Sucralfate 1 gm 08/22/17 10:00 08/22/17 11:10 Carafate - PO 1 gm BID DAVID Administration Abd U/S: 1. Somewhat hypoechoic pancreatic head may be secondary to edema in the setting of pancreatitis. Please correlate with pancreatic enzymes. 2. No evidence of cholelithiasis, acute cholecystitis or biliary ductal dilatation. ASSESSMENT/PLAN: 77 yo F with a PMH of asthma, HTN, hypothyroidism, peptic ulcer, and HLD, with recent [place] sprain on [place] (treated with NSAIDs), URI/cough on prednisone last week, presents with epigastric pain/nausea,vomiting, associated with PO intake. #Epigastric pain with nausea and vomiting -Suspicious for PUD (secondary to NSAID use) vs Pancreatitis -Cannot rule malignancy, 11 pound weight loss in a month. -Abd U/S: Impression: Somewhat hypoechoic pancreatic head may be secondary to edema in the setting of pancreatitis. -Hx of PUD -Amylase 124, Lipase 167(480 on admission) -GI consulted -IV fluid NS @ 75ml/hour -IV protonic 40 bid -IV zofran q6h prn -Sucralfate 1mg BID (will be held friday night for EGD) -Clear liquid diet, NPO Friday night for Friday EGD #Acute Anemia -hemoconcentrated on admission, now diluted. -FU Repeat CBC, no evidence of bleed, however has history of melena -FU iron studies -EGD scheduled for Friday #TALIB -likely pre renal, poor oral intake -monitor cr -urine lytes -monitor intake/output. -avoid nephrotoxic drugs -hold valsartan for now #Right Lumbar Strain -flexeril 5mg TID prn -Tylenol PRN -PT #HTN -continue amlodipine as tolerated -hold valsartan -monitor #Hypothyroidism -c/w home med Levothyroxine 50mg #DVT PPx -SCD's (avoid heparin) Visit type - Emergency Visit Emergency Visit: Yes ED Registration Date: 08/21/17 Care time: The patient presented to the Emergency Department on the above date and was hospitalized for further evaluation of their emergent condition. - New Patient This patient is new to me today: Yes Date on this admission: 08/22/17 - Critical Care Critical Care patient: No
[2017-08-22] MEDS: ATORVASTATIN CA 10 MG TABLET (FP) PO SCH (21:54)
[2017-08-23] MEDS: SODIUM CHLORIDE 1,000 ML IV SCH (03:00)
[2017-08-23] MEDS: LEVOTHYROXINE NA 50 MCG TABLET (FP) PO SCH (06:49)
[2017-08-23] MEDS: ACETAMINOPHEN 325 MG TABLET (FP) PO PRN (08:11)
[2017-08-23 08:21] LABS: BASO % 0.9 % (0-2.0); EOS % 4.5 % (0-4.5); HEMATOCRIT 28.7 % (32.4-45.2); HEMOGLOBIN 9.6 GM/dL (10.7-15.3); LYMPH % 25.9 % (8-40); MCH 30.9 pg (25.7-33.7); MCHC 33.6 g/dl (32.0-36.0); MONO % 7.1 % (3.8-10.2); NEUT % 61.6 % (42.8-82.8); PLATELET COUNT 326 K/MM3 (134-434); RBC 3.12 M/mm3 (3.60-5.2); RDW 13.9 % (11.6-15.6); WHITE BLOOD COUNT 5.4 K/mm3 (4.0-10.0)
[2017-08-23 08:58] LABS: ANION GAP 5 (8-16); BLOOD UREA NITROGEN 20 mg/dL (7-18); CALCIUM 8.3 mg/dL (8.5-10.1); CHLORIDE 113 mmol/L (98-107); CO2 25 mmol/L (21-32); GLUCOSE,RANDOM 78 mg/dL (74-106); POTASSIUM 4.2 mmol/L (3.5-5.1); SODIUM 143 mmol/L (136-145)
[2017-08-23] MEDS ORDERED: PT OWN MED DRAWER 7, Y5N ONE (09:32)
[2017-08-23] MEDS: PARoxetine HCL 10 MG TABLET (FP) PO SCH (09:46)
[2017-08-23] MEDS: PANTOPRAZOLE SODIUM 40 MG VIAL IVPUSH SCH ×2 (09:47→21:30)
[2017-08-23] MEDS: SUCRALFATE 1 GM TABLET (FP) PO SCH ×2 (09:47→21:30)
--- NOTE | 2017-08-23 11:20 | PN ---
Teaching Attending Note Name of Resident: Humberto Roth ATTENDING PHYSICIAN STATEMENT time of evaluation: 9:10 AM SUBJECTIVE: Patient seen and examined. abdominal pain resolved. Back pain with some improvement, ambulating better. Few soft stools but yellow, not dark or bloody, no further vomitus noted. OBJECTIVE: Vital Signs Period Temp Pulse Resp BP Sys/Stallworth Pulse Ox Last 24 Hr 98.0 F-98.7 F 91-93 18-21 102-118/50-60 96-96 Intake & Output 08/20/17 08/21/17 08/22/17 08/23/17 23:59 23:59 23:59 23:59 Intake Total 1999 300 Balance 1999 300 Weight 140 lb 132 lb 1 oz general: lying in bed in no acute distress Abdomen: soft, NT, ND, positive bowel sounds, no voluntary or involuntary guarding or rigidity Musculoskeletal: no spinal tenderness, right flank muscle spasm improved, LE power 5/5, moving better Extremities: no edema Chest; No rales or wheezing Home Medication List Medication Instructions Recorded Confirmed Type Amlodipine Besylate [Norvasc -] 2.5 mg PO DAILY 01/28/15 08/21/17 History Levothyroxine [Synthroid -] 50 mcg PO DAILY 01/28/15 08/21/17 History Omeprazole [Prilosec (RX)] 20 mg PO DAILY 01/28/15 08/21/17 History Paroxetine HCl [Paxil] 30 mg PO DAILY 01/28/15 08/21/17 History Simvastatin [Zocor -] 20 mg PO HS 01/28/15 08/21/17 History Valsartan [Diovan] 320 mg PO DAILY 01/28/15 08/21/17 History Albuterol Sulfate [Proventil HFA 1 - 2 inh PO TID 08/21/17 08/21/17 History Inhaler -] Active Medications Generic Name Dose Route Start Last Admin Trade Name Freq PRN Reason Stop Dose Admin Acetaminophen 650 mg 08/22/17 15:34 08/23/17 08:11 Tylenol - PO 650 mg Q6H PRN Administration PAIN LEVEL 1-5 Atorvastatin Calcium 10 mg 08/22/17 22:00 08/22/17 21:54 Lipitor - PO 10 mg HS DAVID Administration Cyclobenzaprine HCl 5 mg 08/22/17 13:41 Flexeril - PO TID PRN BACK PAIN Sodium Chloride 1,000 mls @ 75 mls/hr 08/21/17 23:00 08/23/17 03:00 Normal Saline - IV 75 mls/hr ASDIR DAVID Administration Levothyroxine Sodium 50 mcg 08/22/17 07:00 08/23/17 06:49 Synthroid - PO 50 mcg DAILY@0700 DAVID Administration Ondansetron HCl 4 mg 08/21/17 23:03 Zofran Injection IVPUSH Q6H PRN NAUSEA AND/OR VOMITING Pantoprazole Sodium 40 mg 08/22/17 10:00 08/23/17 09:47 Protonix Iv IVPUSH 40 mg BID DAVID Administration Paroxetine HCl 30 mg 08/22/17 10:00 08/23/17 09:46 Paxil - PO 30 mg DAILY DAVID Administration Sucralfate 1 gm 08/22/17 10:00 08/23/17 09:47 Carafate - PO 1 gm BID DAVID Administration Laboratory Results - last 24 hr 08/22/17 08/22/17 08/22/17 07:20 11:10 16:45 WBC 6.3 RBC 3.28 L Hgb 10.1 L Hct 30.2 L MCV 92.0 MCH 30.9 MCHC 33.6 RDW 14.3 Plt Count 387 MPV 7.9 Neutrophils % Lymphocytes % Monocytes % Eosinophils % Basophils % Sodium 140 Potassium 4.2 Chloride 108 H Carbon Dioxide 27 Anion Gap 5 L BUN 39 H Creatinine 1.4 H Creat Clearance w eGFR 36.56 Random Glucose 75 Calcium 8.1 L Phosphorus 3.3 Magnesium 1.9 Total Bilirubin 0.4 D AST 10 L ALT 16 Alkaline Phosphatase 101 Troponin I < 0.02 Total Protein 6.1 L Albumin 3.1 L Triglycerides 163 H Cancelled Lipase 167 Stool Occult Blood 08/23/17 08/23/17 08/23/17 07:15 07:15 10:40 WBC 5.4 RBC 3.12 L Hgb 9.6 L Hct 28.7 L MCV 92.0 MCH 30.9 MCHC 33.6 RDW 13.9 Plt Count 326 MPV 8.0 Neutrophils % 61.6 Lymphocytes % 25.9 Monocytes % 7.1 Eosinophils % 4.5 Basophils % 0.9 Sodium 143 Potassium 4.2 Chloride 113 H Carbon Dioxide 25 Anion Gap 5 L BUN 20 H Creatinine 1.0 Creat Clearance w eGFR Random Glucose 78 Calcium 8.3 L Phosphorus Magnesium Total Bilirubin AST ALT Alkaline Phosphatase Troponin I Total Protein Albumin Triglycerides Lipase Stool Occult Blood Negative ASSESSMENT AND PLAN: 77F with a PMH of asthma, HTN, hypothyroidism, peptic ulcer, and HLD, with recent lumbar sprain on fern[place], treated with ?pain meds, also URI/cough on prednisone last week, comes with epigastric pain/nausea,vomiting, associated with PO intake. -Epigastric pain/nausea/vomitting, suspicious for PUD flared likely from her ? pain meds on [place]/recent steroids vs ?mild pancreatitis -Acute anemia, ?hemoconcentrated on admission, now with dilution, cannot r/o occult GIB -Right lumbar sprain -recent ?URI/asthma exacerbation -TALIB, likely hypovolumic from poor oral intake, -Hypothyroidism -HLD Plan: Suspect her epigastric symptoms likely from PUD that was exacerbated by ?pain meds on [place] and prednisone for her asthma exacerbation. Abdominal exam benign currently, no acute concerns. GI input appreciated. Continue PPI IV BID, carafate QID. hold carafate on Friday. Advance to full liquid diet. NPO tomorrow after midnight. EGD on Friday. Imaging with pancreatitis, unclear etiology. ?If adjacent findings from duodenal inflammation though abdominal exam is benign currently. Trend CBC, check iron panel. Hold valsartan. Continue IVF, monitor renal function. TALIB resolved. flexeril 5 mg TID prn and tylenol prn. PT eval. Off steroids as patient no bronchospastc concerns currently. Continue amlodipine as tolerated, levothyroxine. DVTPPX with SCDs. avoid heparin Dispo Friday pending EGD if continues to improve. Plan discussed with patient in detail, all questions answered.
--- NOTE | 2017-08-23 13:26 | PN ---
Progress Note, Physician History of Present Illness: No events overnight. - Current Medication List Current Medications: Active Medications Acetaminophen (Tylenol -) 650 mg PO Q6H PRN PRN Reason: PAIN LEVEL 1-5 Last Admin: 08/23/17 08:11 Dose: 650 mg Atorvastatin Calcium (Lipitor -) 10 mg PO HS [facility] Last Admin: 08/22/17 21:54 Dose: 10 mg Cyclobenzaprine HCl (Flexeril -) 5 mg PO TID PRN PRN Reason: BACK PAIN Sodium Chloride (Normal Saline -) 1,000 mls @ 75 mls/hr IV ASDIR [facility] Last Admin: 08/23/17 03:00 Dose: 75 mls/hr Levothyroxine Sodium (Synthroid -) 50 mcg PO DAILY@0700 [facility] Last Admin: 08/23/17 06:49 Dose: 50 mcg Ondansetron HCl (Zofran Injection) 4 mg IVPUSH Q6H PRN PRN Reason: NAUSEA AND/OR VOMITING Pantoprazole Sodium (Protonix Iv) 40 mg IVPUSH BID [facility] Last Admin: 08/23/17 09:47 Dose: 40 mg Paroxetine HCl (Paxil -) 30 mg PO DAILY [facility] Last Admin: 08/23/17 09:46 Dose: 30 mg Sucralfate (Carafate -) 1 gm PO BID [facility] Last Admin: 08/23/17 09:47 Dose: 1 gm - Objective Vital Signs: Vital Signs Temperature 98.1 F 08/23/17 08:00 Pulse Rate 91 H 08/23/17 08:00 Respiratory Rate 18 08/23/17 08:00 Blood Pressure 118/54 08/23/17 08:00 O2 Sat by Pulse Oximetry (%) 96 08/22/17 22:00 Constitutional: Yes: Well Nourished, No Distress, Calm Eyes: Yes: Conjunctiva Clear HENT: Yes: Atraumatic Neck: Yes: Supple Cardiovascular: Yes: Regular Rate and Rhythm Respiratory: Yes: Regular Gastrointestinal: Yes: Soft, Tenderness, Epigastrium. No: Ascites, Distention, Tenderness, Rebound, Vomiting Neurological: Yes: Alert, Oriented Labs: CBC, BMP 08/23/17 07:15 08/23/17 07:15 INR, PTT INR 1.02 (0.82-1.09) 08/22/17 07:20 Abnormal Lab Results 08/22/17 08/23/17 08/23/17 16:45 07:15 07:15 RBC 3.28 L 3.12 L Hgb 10.1 L 9.6 L Hct 30.2 L 28.7 L Chloride 113 H Anion Gap 5 L BUN 20 H Calcium 8.3 L - ....Imaging Ultrasound: Report Reviewed Problem List - Problems (1) Gastric ulcer Code(s): K25.9 - GASTRIC ULCER, UNSP ACUTE OR CHRONIC, W/O HEMOR OR PERF (2) Epigastric pain Code(s): R10.13 - EPIGASTRIC PAIN Assessment/Plan No events. Continue the same management. Clear liquid diet IV/PO hydration Antiemetics PPI PO BID Carafate po qid (hold on Friday) Daily Hgb, monitor stools for melena EGD on Friday
[2017-08-23] MEDS: ATORVASTATIN CA 10 MG TABLET (FP) PO SCH (21:30)
[2017-08-24] MEDS: LEVOTHYROXINE NA 50 MCG TABLET (FP) PO SCH (06:53)
[2017-08-24 08:06] LABS: HEMOGLOBIN 9.7 GM/dL (10.7-15.3); MCH 30.6 pg (25.7-33.7); MCHC 33.3 g/dl (32.0-36.0); MEAN CELL VOLUME 91.9 fl (80-96); MEAN PLT VOLUME 7.7 fl (7.5-11.1); PLATELET COUNT 312 K/MM3 (134-434); RBC 3.16 M/mm3 (3.60-5.2); RDW 13.7 % (11.6-15.6); WHITE BLOOD COUNT 5.1 K/mm3 (4.0-10.0)
[2017-08-24 08:43] LABS: ANION GAP 5 (8-16); BLOOD UREA NITROGEN 13 mg/dL (7-18); CALCIUM 8.3 mg/dL (8.5-10.1); CHLORIDE 111 mmol/L (98-107); CO2 28 mmol/L (21-32); GLUCOSE,RANDOM 81 mg/dL (74-106); POTASSIUM 4.3 mmol/L (3.5-5.1); SODIUM 144 mmol/L (136-145)
[2017-08-24] MEDS: PARoxetine HCL 10 MG TABLET (FP) PO SCH (09:59)
[2017-08-24] MEDS: PANTOPRAZOLE SODIUM 40 MG VIAL IVPUSH SCH ×2 (10:00→21:41)
--- NOTE | 2017-08-24 13:15 | PN ---
Teaching Attending Note Name of Resident: Humberto Roth ATTENDING PHYSICIAN STATEMENT SUBJECTIVE: Patient seen and examined. Abdominal pain improved, taking PO well. Back pain improved with flexeril. had 2 loose stools today, denies being dark or bloody, no new complaints. OBJECTIVE: Vital Signs Period Temp Pulse Resp BP Sys/Stallworth Pulse Ox Last 24 Hr 97.6 F-98.3 F 86-100 17-19 103-134/43-70 95-95 Intake & Output 08/21/17 08/22/17 08/23/17 08/24/17 23:59 23:59 23:59 23:59 Intake Total 1999 1725 300 Balance 1999 1725 300 Weight 140 lb 132 lb 1 oz general: lying in bed in no acute distress Abdomen: soft, NT, ND, positive bowel sounds, no epigastric tenderness Musculoskeletal: flank spasm improved, improved ROM Extremities: No edema, power 5/5 Home Medication List Medication Instructions Recorded Confirmed Type Amlodipine Besylate [Norvasc -] 2.5 mg PO DAILY 01/28/15 08/21/17 History Levothyroxine [Synthroid -] 50 mcg PO DAILY 01/28/15 08/21/17 History Omeprazole [Prilosec (RX)] 20 mg PO DAILY 01/28/15 08/21/17 History Paroxetine HCl [Paxil] 30 mg PO DAILY 01/28/15 08/21/17 History Simvastatin [Zocor -] 20 mg PO HS 01/28/15 08/21/17 History Valsartan [Diovan] 320 mg PO DAILY 01/28/15 08/21/17 History Albuterol Sulfate [Proventil HFA 1 - 2 inh PO TID 08/21/17 08/21/17 History Inhaler -] Active Medications Generic Name Dose Route Start Last Admin Trade Name Freq PRN Reason Stop Dose Admin Acetaminophen 650 mg 08/22/17 15:34 08/23/17 08:11 Tylenol - PO 650 mg Q6H PRN Administration PAIN LEVEL 1-5 Atorvastatin Calcium 10 mg 08/22/17 22:00 08/23/17 21:30 Lipitor - PO 10 mg HS DAVID Administration Cyclobenzaprine HCl 5 mg 08/22/17 13:41 08/24/17 06:58 Flexeril - PO 5 mg TID PRN Administration BACK PAIN Sodium Chloride 1,000 mls @ 75 mls/hr 08/21/17 23:00 08/23/17 03:00 Normal Saline - IV 75 mls/hr ASDIR DAVID Administration Levothyroxine Sodium 50 mcg 08/22/17 07:00 08/24/17 06:53 Synthroid - PO 50 mcg DAILY@0700 DAVID Administration Ondansetron HCl 4 mg 08/21/17 23:03 Zofran Injection IVPUSH Q6H PRN NAUSEA AND/OR VOMITING Pantoprazole Sodium 40 mg 08/22/17 10:00 08/24/17 10:00 Protonix Iv IVPUSH 40 mg BID DAVID Administration Paroxetine HCl 30 mg 08/22/17 10:00 08/24/17 09:59 Paxil - PO 30 mg DAILY DAVID Administration Sucralfate 1 gm 08/22/17 10:00 08/23/17 21:30 Carafate - PO 1 gm BID DAVID Administration Laboratory Results - last 24 hr 08/24/17 08/24/17 07:00 07:00 WBC 5.1 RBC 3.16 L Hgb 9.7 L Hct 29.0 L MCV 91.9 MCH 30.6 MCHC 33.3 RDW 13.7 Plt Count 312 MPV 7.7 Sodium 144 Potassium 4.3 Chloride 111 H Carbon Dioxide 28 Anion Gap 5 L BUN 13 Creatinine 1.0 Random Glucose 81 Calcium 8.3 L Ferritin 59.511 ASSESSMENT AND PLAN: 77F with a PMH of asthma, HTN, hypothyroidism, peptic ulcer, and HLD, with recent lumbar sprain on [place], treated with ?pain meds, also URI/cough on prednisone last week, comes with epigastric pain/nausea,vomiting, associated with PO intake. -Epigastric pain/nausea/vomitting, suspicious for PUD flared likely from her ? pain meds on [place]/recent steroids vs ?mild pancreatitis -Acute anemia, ?hemoconcentrated on admission, now with dilution, cannot r/o occult GIB -Right lumbar sprain -recent ?URI/asthma exacerbation -TALIB, likely hypovolumic from poor oral intake, -Hypothyroidism -HLD Plan: Suspect her epigastric symptoms likely from PUD that was exacerbated by ?pain meds on [place] and prednisone for her asthma exacerbation. Abdominal exam benign currently, no acute concerns. GI input appreciated. Continue PPI IV BID, carafate QID. hold carafate today for EGD tomorrow. . Full liquid diet. NPO tomorrow after midnight. Imaging with pancreatitis, unclear etiology. ?If adjacent findings from duodenal inflammation though abdominal exam is benign currently. Hb with initial drop then stabilized, monitor for now. Follow up iron panel. Hold valsartan. Continue IVF, monitor renal function. TALIB resolved. flexeril 5 mg TID prn and tylenol prn. Improved, PT eval noted. Off steroids as patient no bronchospastc concerns currently. Continue amlodipine as tolerated, levothyroxine. DVTPPX with SCDs. avoid heparin Dispo planning in 24 hours post EGD if no new concerns. Plan discussed with patient in detail, all questions answered.
[2017-08-24] MEDS: DEXTROSE 5%-0.45% SALINE 1,000 ML IV SCH (13:35)
[2017-08-24] MEDS: ATORVASTATIN CA 10 MG TABLET (FP) PO SCH (21:41)
[2017-08-25] MEDS: DEXTROSE 5%-0.45% SALINE 1,000 ML IV SCH (00:12)
[2017-08-25] MEDS: ACETAMINOPHEN 325 MG TABLET (FP) PO PRN (00:12)
[2017-08-25 06:06] LABS: SERUM IRON SATURATION 25 % (15-55); TOTAL IRON BINDING CAPACITY 235 ug/dL (250-450); UIBC 177 ug/dL (118-369)
[2017-08-25] MEDS: LEVOTHYROXINE NA 50 MCG TABLET (FP) PO SCH (06:31)
--- NOTE | 2017-08-25 08:17 | PN ---
Teaching Attending Note Name of Resident: Dm De Los Santos ATTENDING PHYSICIAN STATEMENT Time of evaluation: 12:30 PM I saw and evaluated the patient. I reviewed the resident's note and discussed the case with the resident. I agree with the resident's findings and plan as documented. SUBJECTIVE: Patient seen and examined. no complaints, just had lunch, did well. OBJECTIVE: Vital Signs Period Temp Pulse Resp BP Sys/Stallworth Pulse Ox Last 24 Hr 98.2 F-99.1 F 79-114 18-19 125-136/72-75 95-97 Intake & Output 08/22/17 08/23/17 08/24/17 08/25/17 23:59 23:59 23:59 23:59 Intake Total 1999 1725 1400 Balance 1999 172 1400 Weight 132 lb 1 oz General: sitting in chair, no acute distress Abdomen: soft, NT Musculoskeletal: no spinal or paraspinal tenderness Extremities: no edema Home Medication List Medication Instructions Recorded Confirmed Type Amlodipine Besylate [Norvasc -] 2.5 mg PO DAILY 01/28/15 08/21/17 History Levothyroxine [Synthroid -] 50 mcg PO DAILY 01/28/15 08/21/17 History Omeprazole [Prilosec (RX)] 20 mg PO DAILY 01/28/15 08/21/17 History Paroxetine HCl [Paxil] 30 mg PO DAILY 01/28/15 08/21/17 History Simvastatin [Zocor -] 20 mg PO HS 01/28/15 08/21/17 History Valsartan [Diovan] 320 mg PO DAILY 01/28/15 08/21/17 History Albuterol Sulfate [Proventil HFA 1 - 2 inh PO TID 08/21/17 08/21/17 History Inhaler -] Active Medications Generic Name Dose Route Start Last Admin Trade Name Freq PRN Reason Stop Dose Admin Acetaminophen 650 mg 08/22/17 15:34 08/25/17 00:12 Tylenol - PO 650 mg Q6H PRN Administration PAIN LEVEL 1-5 Atorvastatin Calcium 10 mg 08/22/17 22:00 08/24/17 21:41 Lipitor - PO 10 mg HS DAVID Administration Cyclobenzaprine HCl 5 mg 08/22/17 13:41 08/24/17 06:58 Flexeril - PO 5 mg TID PRN Administration BACK PAIN Dextrose/Sodium Chloride 1,000 mls @ 100 mls/hr 08/24/17 13:30 08/25/17 00:12 D5-1/2ns - IV 100 mls/hr ASDIR DAVID Administration Levothyroxine Sodium 50 mcg 08/22/17 07:00 08/25/17 06:31 Synthroid - PO 50 mcg DAILY@0700 DAVID Administration Ondansetron HCl 4 mg 08/21/17 23:03 Zofran Injection IVPUSH Q6H PRN NAUSEA AND/OR VOMITING Pantoprazole Sodium 40 mg 08/22/17 10:00 08/24/17 21:41 Protonix Iv IVPUSH 40 mg BID DAVID Administration Paroxetine HCl 30 mg 08/22/17 10:00 08/24/17 09:59 Paxil - PO 30 mg DAILY DAVID Administration Sucralfate 1 gm 08/22/17 10:00 08/23/17 21:30 Carafate - PO 1 gm BID DAVID Administration ASSESSMENT AND PLAN: 77F with a PMH of asthma, HTN, hypothyroidism, peptic ulcer, and HLD, with recent lumbar sprain on [place], treated with ?pain meds, also URI/cough on prednisone last week, comes with epigastric pain/nausea,vomiting, associated with PO intake. -Epigastric pain/nausea/vomitting, suspicious for PUD flared likely from her ? pain meds on [place]/recent steroids vs ?mild pancreatitis -Acute anemia, ?hemoconcentrated on admission, now with dilution, cannot r/o occult GIB -Right lumbar sprain -recent ?URI/asthma exacerbation -TALIB, likely hypovolumic from poor oral intake, -Hypothyroidism -HLD Plan: Improved, toelrating diet. EGD with hiatal hernia, follow up biopsies. Continue PPI. Outpatient follow up. Resume ARB, outpatient monitoring of her anemia and renal function. back pain resolved, ambulating well, seen by PT d/c home today. plan discussed with patient in detail, all questions answered.
[2017-08-25 08:21] LABS: HEMATOCRIT 29.6 % (32.4-45.2); HEMOGLOBIN 9.9 GM/dL (10.7-15.3); MCHC 33.6 g/dl (32.0-36.0); MEAN CELL VOLUME 92.2 fl (80-96); MEAN PLT VOLUME 8.3 fl (7.5-11.1); PLATELET COUNT 305 K/MM3 (134-434); RBC 3.21 M/mm3 (3.60-5.2); RDW 14.2 % (11.6-15.6)
[2017-08-25 08:37] LABS: ANION GAP 8 (8-16); BLOOD UREA NITROGEN 8 mg/dL (7-18); CALCIUM 8.1 mg/dL (8.5-10.1); CHLORIDE 109 mmol/L (98-107); CO2 27 mmol/L (21-32); CREATININE 1.1 mg/dL (0.55-1.02); GLUCOSE,RANDOM 89 mg/dL (74-106); POTASSIUM 4.2 mmol/L (3.5-5.1); SODIUM 144 mmol/L (136-145)
[2017-08-25] MEDS ORDERED: PROPOFOL 20 ML ONE (11:34)
--- NOTE | 2017-08-25 11:53 | PROC ---
Endoscopy Procedure Endoscopy procedure completed. Please see scanned procedure report. Large hiatal hernia, otherwise normal endoscopy. Random biopsies taken. Follow biopsy results in office in 1 week.
[2017-08-25] MEDS ORDERED: PT OWN MED DRAWER 7, Y5N ONE (13:18)
[2017-08-25] MEDS: PANTOPRAZOLE SODIUM 40 MG VIAL IVPUSH SCH (13:45)
[2017-08-25] MEDS: PARoxetine HCL 10 MG TABLET (FP) PO SCH (13:45)
[2017-08-25 15:08] VITALS: BP 148/73; PULSE 82; TEMP 97.7
--- NOTE | 2017-08-25 19:55 | DS ---
Physical Exam: SUBJECTIVE: Patient seen and examined. No acute events overnight. Patient offers no new complaints. Says she feels better. Denies chest pain, dizziness, abdominal pain, nausea, vomiting, diarrhea. OBJECTIVE: Vital Signs Period Temp Pulse Resp BP Sys/Stallworth Pulse Ox Last 24 Hr 97.7 F-99.1 F 64-89 18-19 125-148/65-79 96-99 PHYSICAL EXAM GENERAL: The patient is awake, alert, and fully oriented, in no acute distress. HEAD: Normal with no signs of trauma. EYES: PERRL, extraocular movements intact, sclera anicteric, conjunctiva clear. No ptosis. ENT: oropharynx clear without exudates, moist mucous membranes. NECK: supple. LUNGS: Breath sounds equal, clear to auscultation bilaterally, no wheezes, no crackles, no accessory muscle use. HEART: Regular rate and rhythm, S1, S2 without murmur, rub or gallop. ABDOMEN: Soft, nontender, nondistended, normoactive bowel sounds, no guarding, no rebound, no hepatosplenomegaly, no masses. EXTREMITIES: 2+ pulses, warm, well-perfused, no edema. NEUROLOGICAL: Cranial nerves II through XII grossly intact. Normal speech, gait not observed. PSYCH: Normal mood, normal affect. SKIN: Warm, dry, normal turgor, no rashes or lesions noted LABS Laboratory Results - last 24 hr 08/24/17 08/25/17 08/25/17 07:00 07:15 07:15 WBC 5.0 RBC 3.21 L Hgb 9.9 L Hct 29.6 L MCV 92.2 MCH 31.0 MCHC 33.6 RDW 14.2 Plt Count 305 MPV 8.3 Sodium 144 Potassium 4.2 Chloride 109 H Carbon Dioxide 27 Anion Gap 8 BUN 8 Creatinine 1.1 H Random Glucose 89 Calcium 8.1 L Iron 58 TIBC 235 L Iron Saturation 25 HOSPITAL COURSE: Date of Admission:08/21/17 77 yo F with a PMH of asthma, HTN, hypothyroidism, peptic ulcer, and HLD, with recent lumbar sprain on cruise (treated with ?NSAIDs), URI/cough on prednisone last week, presents with epigastric pain/nausea,vomiting, associated with PO intake and was found to have Mild acute pancreatitis and TALIB. Abd U/S: Impression: Somewhat hypoechoic pancreatic head may be secondary to edema in the setting of pancreatitis. Lipase 480 on admission. GI was consulted. Fluids started. Tolerated Clear liquid diet. Protonix 40mg BID. Zofran for nausea. Sucralfate. Valsartan held because of TALIB. During hospital stay, drop in H &H. since patient has history of PUD, patient underwent EGD which revealed a hiatal hernia, otherwise normal endoscopy. Patient's TALIB resolved. Resumed Valsartan, outpatient monitoring of her anemia and renal function. Discussed plans with patient and son and answered all questions. Patient also agreed to follow up with GI (Dr. Kraft) and PCP in 1 week. Date of Discharge: 08/25/17 Minutes to complete discharge: 35 Discharge Summary Reason For Visit: EPIGASTRIC PAIN Condition: Stable - Instructions Diet, Activity, Other Instructions: Please follow up with your primary care physician in 1 week. You will also need to follow up with the diamond driller in 1 week to review your EGD biopsy results. Avoid Motrin, ibuprofen or any other NSAIDs without talking to your doctor. Avoid alcohol intake. FOllow Up; Dr. Kraft in 1 week to discuss biopsy results. CBC and BMP (blood work) with your doctor in 1 week to address your anemia and kidney function. Caution with steroids for your asthma as can exacerbated acid reflux symptoms, but if needed please sure you are on reflux medication . Continue omeprazole as directed 1-2 times daily for your reflux symptoms and follow up with your doctor. If you feel your symptoms are worsening,new pain, dark or bloody stools or any new concerns, call your doctor or go to the nearest emergency room. Referrals: Latoya Wilson MD [Primary Care Provider] - 1 Week Angel Kraft MD [Staff Physician] - 1 Week Disposition: HOME - Home Medications Comprehensive Discharge Medication List: Ambulatory Orders Levothyroxine [Synthroid -] 50 mcg PO DAILY 01/28/15 Paroxetine HCl [Paxil] 30 mg PO DAILY 01/28/15 Simvastatin [Zocor -] 20 mg PO HS 01/28/15 Valsartan [Diovan] 320 mg PO DAILY 01/28/15 Acetaminophen [Tylenol .Extra-Strength -] 500 mg PO Q8H PRN #100 tablet Omeprazole 20 mg PO BID #30 tablet. 08/25/17 This patient is new to me today: No Emergency Visit: Yes ED Registration Date: 08/21/17 Care time: The patient presented to the Emergency Department on the above date and was hospitalized for further evaluation of their emergent condition. Critical Care patient: No - Discharge Referral Referred to [facility] No
--- NOTE | 2017-08-26 14:30 | PATH ---
Surgical Pathology Report Patient Name: JHONNY VIGIL [facility]. Rec. #: [id number] /Age/Gender: 1940 (Age: 77) / F Account: [id number] Location: [address] [place] [address] Taken: 08/25/2017 Received: 08/25/2017 Reported: 08/26/2017 Physicians: Isi Pulido M.D. Specimen(s) Received A: BX DUODENUM B: BX ANTRUM AND BODY Clinical History Preoperative diagnosis: Abdominal pain, history of gastric ulcer Postoperative diagnosis: Gastritis, hiatal hernia Final Diagnosis A. DUODENUM, SECOND PORTION, BIOPSY: DUODENAL MUCOSA WITHOUT SIGNIFICANT PATHOLOGIC FINDINGS. B. STOMACH, ANTRUM AND BODY, BIOPSY: GASTRIC ANTRAL AND BODY MUCOSA WITH MILD CHRONIC GASTRITIS. IMMUNOHISTOCHEMICAL STAIN FOR H. PYLORI IS NEGATIVE. Electronically Signed Nicolasa Rubin M.D. Gross Description A. Received in formalin, labeled "biopsy duodenum second portion" are 2 shipley, irregular portions of soft tissue measuring 0.4 and 0.6 cm. in greatest dimension. The specimens are submitted in toto in one cassette. B. Received in formalin, labeled "biopsy antrum and body" are 2 shipley, irregular portions of soft tissue measuring 0.2 and 0.5 cm. in greatest dimension. The specimens are submitted in toto in one cassette. 08/25/2017 [facility]08/25/2017
== END 2017-08-25 17:56 | disposition home or self-care (01) | DRG 439 ==
LOC: JER 15:14 → JERBED 22:54 → J6S 08-22 01:41
PROVIDERS: ADMIT Internal Medicine; ATTEND Hospitalist
PROC: 0DD68ZX Extraction of Stomach, Via Natural or Artificial Opening Endoscopic, Diagnostic (ICD-10-PCS; 2017-08-25)
PROC: 0DD98ZX Extraction of Duodenum, Via Natural or Artificial Opening Endoscopic, Diagnostic (ICD-10-PCS; principal; 2017-08-25 12:30)
DX: K85.90 Acute pancreatitis without necrosis or infection, unspecified (principal); N17.9 Acute kidney failure, unspecified; E03.9 Hypothyroidism, unspecified; I10 Essential (primary) hypertension; J45.909 Unspecified asthma, uncomplicated; E78.5 Hyperlipidemia, unspecified; K44.9 Diaphragmatic hernia without obstruction or gangrene; D64.9 Anemia, unspecified; K25.9 Gastric ulcer, unspecified as acute or chronic, without hemorrhage or perforation; R10.13 Epigastric pain; K29.50 Unspecified chronic gastritis without bleeding
CPT/HCPCS: 36415; 71046-TC-FY; 76705-TC; 80048; 80053; 81003; 81015; 82150; 82272; 82550; 82728; 83540; 83550; 83690; 83735; 84100; 84478; 84484; 85025; 85027; 85610; 88305-TC; 93005; 93010; 97116-GP; 97161-GP; 99284-25

== ENCOUNTER 2018-02-15 20:02 | Inpatient (IN) | payer OTHER ==
--- NOTE | 2018-02-15 20:31 | PDOC ---
History of Present Illness - General Chief Complaint: Pain, Acute Stated Complaint: STOMACH PAIN Time Seen by Provider: 02/15/18 20:31 Past History - Past Medical History Allergies/Adverse Reactions: Allergies Allergy/AdvReac Type Severity Reaction Status Date / Time Sulfa (Sulfonamide Allergy Verified 08/21/17 15:15 Antibiotics) Home Medications: Ambulatory Orders Levothyroxine [Synthroid -] 50 mcg PO DAILY 01/28/15 Paroxetine HCl [Paxil] 30 mg PO DAILY 01/28/15 Simvastatin [Zocor -] 20 mg PO HS 01/28/15 Valsartan [Diovan] 320 mg PO DAILY 01/28/15 Acetaminophen [Tylenol .Extra-Strength -] 500 mg PO Q8H PRN #100 tablet Omeprazole 20 mg PO BID #30 tablet. 08/25/17 Asthma: Yes COPD: No DVT: No Dementia: No GI Disorders: Yes (gastric ulcer, hiatal hernia) HTN: Yes Hypercholesterolemia: Yes Thyroid Disease: Yes (hypo) - Immunization History Immunization Up to Date: Yes - Suicide/Smoking/Psychosocial Hx Smoking History: Former smoker Have you smoked in the past 12 months: No If you are a former smoker, when did you quit?: 1989 Information on smoking cessation initiated: No Hx Alcohol Use: No Drug/Substance Use Hx: No Substance Use Type: None, Alcohol Hx Substance Use Treatment: No *Physical Exam - Vital Signs Last Vital Signs Temp Pulse Resp BP Pulse Ox 98.1 F 88 20 159/75 98 02/15/18 20:21 02/15/18 20:21 02/15/18 20:21 02/15/18 20:21 02/15/18 20:21 - Physical Exam Comments: 02/16/18 02:00 AGREE WITH PA's PHYSICAL EXAM Heart Score/ECG Review - ECG Intrepretation Rhythm: Regular Rhythm - [place]: Normal - P and VT Delta Wave(s) Present: No WPW: No - ST and T Early Repolarization: No Non Specific ST-T Wave changes: No - ECG Impressions Normal ECG: Yes Non-specific ST Elevation: No Ischemic Changes: No ED Treatment Course - LABORATORY CBC & Chemistry Diagram: 02/15/18 21:15 02/15/18 21:15 Medical Decision Making - Medical Decision Making 02/15/18 22:28 Pt comes with abd pain and she has elevated lipase in the ER. She will be admitted for GI eval tomorrow. 02/16/18 00:44 Patient Name: JHONNY VIGIL THIS IS A PRELIMINARY REPORT FROM [facility] DATE OF SERVICE: 2018-02-16 00:08:16 IMAGES: [id number] EXAM: ABDOMEN \T\ PELVIS CT WITH CONTR HISTORY: Abdominal pain COMPARISON: None. FINDINGS: Lung bases are clear. The visualized cardiac chambers are normal size and configuration. Normal liver, gallbladder, pancreas, spleen, adrenal glands and kidneys. There is a large hiatal hernia and probable gastric volvulus. Small amount of free fluid surrounds the hernia. No abscess or free air. The abdominal small and large bowel are normal. There is no aortic aneurysm. There is no significant retroperitoneal lymphadenopathy. The pelvic small and large bowel are normal. The appendix is normal there is small fat containing bilateral inguinal hernias.. The uterus and adnexal structures are normal. Urinary bladder is unremarkable. There is no pelvic free fluid. No discrete pelvic lymphadenopathy is identified. IMPRESSION: Probable gastric volvulus. Suggest NG tube placement as well as surgical consultation. Individualized dose optimization techniques were used for this CT. THIS DOCUMENT HAS BEEN ELECTRONICALLY SIGNED We will place a NGT in the patient 02/16/18 01:58 Pt is feeling better with the NGT to suction. 100ml fluid removed. *DC/Admit/Observation/Transfer Diagnosis at time of Disposition: Acute pancreatitis, Gastric volvulus, Epigastric pain - Referrals Referrals: Latoya Wilson MD [Primary Care Provider] - - Patient Instructions - Post Discharge Activity
[2018-02-15] MEDS ORDERED: SODIUM CHLORIDE 0.9% 500 ML INFUS.BAG IV ONE ×2 (20:44→22:49)
[2018-02-15] MEDS ORDERED: morphine CARPU-JECT 2 MG/1 ML DISP.SYRIN IVPUSH ONE (20:44)
[2018-02-15] MEDS ORDERED: ONDANSETRON 4 MG/2 ML VIAL IVPUSH ONE ×2 (20:44→21:26)
[2018-02-15] MEDS ORDERED: PANTOPRAZOLE SODIUM 40 MG VIAL IVPUSH ONE (20:50)
[2018-02-15] MEDS ORDERED: ONDANSETRON 4 MG/2 ML VIAL ONE ×2 (20:54→21:45)
[2018-02-15] MEDS ORDERED: MORPHINE SULFATE 2 MG/ML VIAL ONE (20:54)
--- NOTE | 2018-02-15 21:01 | PDOC ---
History of Present Illness <Kathy Ortega - Last Filed: 02/16/18 04:27> - General History Source: Patient Exam Limitations: No Limitations - History of Present Illness Initial Comments: 02/15/18 20:53 Patient is a 77-year-old female with history of gastric ulcers, asthma, hypothyroid, hypertension, hyperlipidemia complaining of epigastric pain 4-5 days associated with nausea and vomiting. Pain in the epigastrium is continuous burning 6/10 that radiates to the back, aggravated by laying back, no alleviating factors. States she's been vomiting for 4-5 days, now just dry heaves but yesterday her vomitus was black. States she has not eaten in 3-4 days as well. This morning she tried to have some oatmeal but vomited thereafter. Reports that she was admitted in August for the same symptoms. It was suspected that she could've had pancreatitis or gastritis. She underwent an endoscopy and had follow-up with GI Dr. Kraft thereafter. PMX: Dr. Wilson GI: Dr. Kraft ALL: Sulfa GENERAL/CONSTITUTIONAL: [No fever or chills. No weakness. No weight change.] HEAD, EYES, EARS, NOSE AND THROAT: [No change in vision. No ear pain or discharge. No sore throat.] CARDIOVASCULAR: [No chest pain or shortness of breath.] RESPIRATORY: [No cough, wheezing, or hemoptysis.] GASTROINTESTINAL: (+) nausea, vomiting, (-) diarrhea or constipation. No rectal bleeding.] GENITOURINARY: [No dysuria, frequency, or change in urination.] MUSCULOSKELETAL: [No joint or muscle swelling or pain. No neck or back pain.] SKIN AND BREASTS: [No rash or easy bruising.] NEUROLOGIC: [No headache, vertigo, loss of consciousness, or loss of sensation.] PSYCHIATRIC: [No depression or anxiety.] ENDOCRINE: [No increased thirst. No abnormal weight change.] HEMATOLOGIC/LYMPHATIC: [No anemia, easy bleeding, or history of blood clots.] ALLERGIC/IMMUNOLOGIC: [No hives or skin allergy. No latex allergy.] GENERAL: [The patient is awake, alert, and fully oriented, in moderate painful GI distress.] HEAD: [Normal with no signs of trauma.] EYES: [Pupils equal, round and reactive to light, extraocular movements intact, sclera anicteric, conjunctiva clear.] ENT: [Ears normal, nares patent, oropharynx clear without exudates. Dry mucous membranes.] NECK: [Normal range of motion, supple without lymphadenopathy, JVD, or masses.] LUNGS: [Breath sounds equal, clear to auscultation bilaterally. No wheezes, and no crackles.] HEART: [Regular rate and rhythm, normal S1 and S2 without murmur, rub.] ABDOMEN: [Soft, (+) tenderness epigastrum, normoactive bowel sounds. No guarding, no rebound. No masses.] EXTREMITIES: [Normal range of motion, no edema. No clubbing or cyanosis. No cords, erythema, or tenderness.] NEUROLOGICAL: [Cranial nerves II through XII grossly intact. Normal speech, normal gait.] PSYCH: [Normal mood, normal affect.] SKIN: [Warm, Dry, normal turgor, no rashes or lesions noted.] <Wilmer Meadows - Last Filed: 02/16/18 05:03> - General Chief Complaint: Pain, Acute Stated Complaint: STOMACH PAIN Time Seen by Provider: 02/15/18 20:31 Past History <Kathy Ortega - Last Filed: 02/16/18 04:27> - Past Medical History Asthma: Yes COPD: No DVT: No Dementia: No GI Disorders: Yes (gastric ulcer, hiatal hernia) HTN: Yes Hypercholesterolemia: Yes Thyroid Disease: Yes (hypo) - Immunization History Immunization Up to Date: Yes - Suicide/Smoking/Psychosocial Hx Smoking History: Former smoker Have you smoked in the past 12 months: No If you are a former smoker, when did you quit?: 1989 Information on smoking cessation initiated: No Hx Alcohol Use: No Drug/Substance Use Hx: No Substance Use Type: None, Alcohol Hx Substance Use Treatment: No <Wilmer Meadows - Last Filed: 02/16/18 05:03> - Past Medical History Allergies/Adverse Reactions: Allergies Allergy/AdvReac Type Severity Reaction Status Date / Time Sulfa (Sulfonamide Allergy Verified 08/21/17 15:15 Antibiotics) Home Medications: Ambulatory Orders Levothyroxine [Synthroid -] 50 mcg PO DAILY 01/28/15 Paroxetine HCl [Paxil] 30 mg PO DAILY 01/28/15 Simvastatin [Zocor -] 20 mg PO HS 01/28/15 Valsartan [Diovan] 320 mg PO DAILY 01/28/15 Acetaminophen [Tylenol .Extra-Strength -] 500 mg PO Q8H PRN #100 tablet Omeprazole 20 mg PO BID #30 tablet. 08/25/17 *Physical Exam - Vital Signs Last Vital Signs Temp Pulse Resp BP Pulse Ox 98.1 F 88 20 159/75 98 02/15/18 20:21 02/15/18 20:21 02/15/18 20:21 02/15/18 20:21 02/15/18 20:21 <Kathy Ortega - Last Filed: 02/16/18 04:27> - Vital Signs Last Vital Signs Temp Pulse Resp BP Pulse Ox 98.1 F 88 20 159/75 98 02/15/18 20:21 02/15/18 20:21 02/15/18 20:21 02/15/18 20:21 02/15/18 20:21 <Wilmer Meadows - Last Filed: 02/16/18 05:03> ED Treatment Course - LABORATORY CBC & Chemistry Diagram: 02/15/18 21:15 02/15/18 21:15 - ADDITIONAL ORDERS Additional order review: Laboratory Results 02/15/18 02/15/18 22:50 21:15 Sodium 145 Potassium 4.6 Chloride 108 H Carbon Dioxide 28 Anion Gap 9 BUN 21 H Creatinine 1.3 H Creat Clearance w eGFR 39.82 Random Glucose 99 Calcium 9.8 Total Bilirubin 0.3 AST 18 ALT 17 Alkaline Phosphatase 74 Troponin I < 0.02 Total Protein 8.7 H Albumin 4.5 Total Amylase 188 H Lipase 1032 H Stool Occult Blood Negative 02/15/18 21:15 RBC 3.94 MCV 91.4 MCHC 33.7 RDW 14.7 MPV 8.1 Neutrophils % 78.1 D Lymphocytes % 14.9 D Monocytes % 4.7 Eosinophils % 1.3 Basophils % 1.0 - Medications Given in the ED: ED Medications Discontinued Medications Generic Name Dose Route Start Last Admin Trade Name Freq PRN Reason Stop Dose Admin Famotidine/Sodium Chloride 20 mg in 50 mls @ 100 mls/hr 02/16/18 03:18 04:00 Pepcid 20 Mg Premixed Ivpb - IVPB 02/16/18 03:47 100 mls/hr ONCE ONE Administration Lidocaine HCl 20 ml 02/16/18 01:25 02/16/18 01:45 Xylocaine 2% Viscous Oral - MM 02/16/18 01:26 20 ml ONCE ONE Administration Morphine Sulfate 2 mg 02/15/18 20:44 02/15/18 21:00 Morphine Injection - IVPUSH 02/15/18 20:45 2 mg ONCE ONE Administration Ondansetron HCl 4 mg 02/15/18 20:44 02/15/18 21:00 Zofran Injection IVPUSH 02/15/18 20:45 4 mg ONCE ONE Administration Ondansetron HCl 4 mg 02/15/18 21:26 02/15/18 21:30 Zofran Injection IVPUSH 02/15/18 21:27 4 mg ONCE ONE Administration Pantoprazole Sodium 40 mg 02/15/18 20:50 02/15/18 21:15 Protonix Iv IVPUSH 02/15/18 20:51 40 mg ONCE ONE Administration Sodium Chloride 1,000 ml 02/15/18 20:44 02/15/18 21:00 Normal Saline - IV 02/15/18 20:45 1,000 ml ONCE ONE Administration Sodium Chloride 1,000 ml 02/15/18 22:49 02/15/18 23:00 Normal Saline - IV 02/15/18 22:50 1,000 ml ONCE ONE Administration <Kathy Ortega - Last Filed: 02/16/18 04:27> - LABORATORY CBC & Chemistry Diagram: 02/15/18 21:15 02/15/18 21:15 - RADIOLOGY Radiology Studies Ordered: Category Date Time Status CHEST PA & LAT [RAD] Stat Radiology 02/15/18 20:52 Ordered <Wilmer Meadows - Last Filed: 02/16/18 05:03> Medical Decision Making - Medical Decision Making 02/15/18 20:53 Patient is a 77-year-old female with history of gastric ulcers, asthma, hypothyroid, hypertension, hyperlipidemia complaining of epigastric pain 4-5 days associated with nausea and vomiting. Suspect gastritis versus pancreatitis , will rule out cardiac causes. Labs include amylase and lipase, trop, ekg IV fluids, morphine, Protonix, Zofran. Reassess 02/15/18 23:22 EKG SR rate 82, LAD, (-) ST-T wave changes labs reviewed noted to have elev Lipase and amylase 02/15/18 23:24 Laboratory Tests 02/15/18 02/15/18 21:15 21:15 WBC 8.3 Hgb 12.1 Hct 36.0 D Plt Count 380 D Sodium 145 Potassium 4.6 Chloride 108 H Carbon Dioxide 28 Anion Gap 9 BUN 21 H Creatinine 1.3 H Troponin I < 0.02 Total Amylase 188 H Lipase 1032 H CXR Air fluid level in the chest no acute infiltrate 02/15/18 23:24 Patient continued on IVF will sent for CTAP with IV con. Will admit the patient to Medicine GI consult placed by Dr. Ortega 02/16/18 00:49 INTERPRETING RADIOLOGIST: Say Brooks MD Electronically Signed: Feb 16, 2018 12:46AM EDT Patient Full Name: YARITZA BARRY Patient Accession No: [id number] Patient : [id number] Reason for Exam: ABD PAIN Referring Physician: Patient Name: JHONNY VIGIL THIS IS A PRELIMINARY REPORT FROM [facility] DATE OF SERVICE: 2018-02-16 00:08:16 IMAGES: [id number] EXAM: ABDOMEN \T\ PELVIS CT WITH CONTR HISTORY: Abdominal pain COMPARISON: None. FINDINGS: Lung bases are clear. The visualized cardiac chambers are normal size and configuration. Normal liver, gallbladder, pancreas, spleen, adrenal glands and kidneys. There is a large hiatal hernia and probable gastric volvulus. Small amount of free fluid surrounds the hernia. No abscess or free air. The abdominal small and large bowel are normal. There is no aortic aneurysm. There is no significant retroperitoneal lymphadenopathy. The pelvic small and large bowel are normal. The appendix is normal there is small fat containing bilateral inguinal hernias.. The uterus and adnexal structures are normal. Urinary bladder is unremarkable. There is no pelvic free fluid. No discrete pelvic lymphadenopathy is identified. IMPRESSION: Probable gastric volvulus. Suggest NG tube placement as well as surgical consultation. Individualized dose optimization techniques were used for this CT. THIS DOCUMENT HAS BEEN ELECTRONICALLY SIGNED Dwayne Brooks MD 02/16/2018 00:31 CHEN Snowden Please call [facility] Performance Analyst [phone] ([phone]) with questions. INTERPRETING RADIOLOGIST: Say Brooks MD Electronically Signed: Feb 16, 2018 12:34AM EDT will get surg consult NGT to be placed draining thick shipley fluid cxr done noted the bowel in the chest decompressed, NGT is curled. Patient not wanting for me to move the NGT now. 02/16/18 04:59 Case d/w the hospitalist will admit. <Wilmer Meadows - Last Filed: 02/16/18 05:03> *DC/Admit/Observation/Transfer - Discharge Dispostion Decision to Admit order: Yes <Kathy Ortega - Last Filed: 02/16/18 04:27> - Discharge Dispostion Decision to Admit order: Yes <Wilmer Meadows - Last Filed: 02/16/18 05:03> Diagnosis at time of Disposition: Gastric volvulus, Epigastric pain Acute pancreatitis Qualifiers: Pancreatitis type: unspecified pancreatitis type Acute pancreatitis complication: unspecified Qualified Code(s): K85.90 - Acute pancreatitis without necrosis or infection, unspecified
[2018-02-15 21:19] LABS: EOS % 1.3 % (0-4.5); HEMOGLOBIN 12.1 GM/dL (10.7-15.3); LYMPH % 14.9 % (8-40); MCH 30.8 pg (25.7-33.7); MCHC 33.7 g/dl (32.0-36.0); MEAN CELL VOLUME 91.4 fl (80-96); MEAN PLT VOLUME 8.1 fl (7.5-11.1); MONO % 4.7 % (3.8-10.2); NEUT % 78.1 % (42.8-82.8); PLATELET COUNT 380 K/MM3 (134-434); RBC 3.94 M/mm3 (3.60-5.2); RDW 14.7 % (11.6-15.6); WHITE BLOOD COUNT 8.3 K/mm3 (4.0-10.0)
[2018-02-15 21:42] LABS: ALBUMIN 4.5 g/dl (3.4-5.0); AMYLASE 188 U/L (25-115); ANION GAP 9 (8-16); BILIRUBIN,TOTAL 0.3 mg/dL (0.2-1.0); BLOOD UREA NITROGEN 21 mg/dL (7-18); CALCIUM 9.8 mg/dL (8.5-10.1); CHLORIDE 108 mmol/L (98-107); CO2 28 mmol/L (21-32); CREATININE 1.3 mg/dL (0.55-1.02); GLUCOSE,RANDOM 99 mg/dL (74-106); SGPT/ALT 17 U/L (12-78); SODIUM 145 mmol/L (136-145); TOT PROT 8.7 g/dl (6.4-8.2)
[2018-02-15 21:45] LABS: ALK PHOS 74 U/L (45-117); LIPASE 1032 U/L (73-393); POTASSIUM 4.6 mmol/L (3.5-5.1); SGOT/AST 18 U/L (15-37)
[2018-02-15] MEDS ORDERED: PANTOPRAZOLE SODIUM 40 MG/100 ML BAG IVPB ONE (21:45)
[2018-02-16] MEDS ORDERED: LIDOCAINE VISCOUS 2% ORAL/TOP 20 ML UNIT-DOSE CUP MM ONE (01:25)
[2018-02-16] MEDS ORDERED: LIDOCAINE VISCOUS 2% ORAL/TOP 20 ML UNIT-DOSE CUP ONE (02:16)
[2018-02-16] MEDS ORDERED: FAMOTIDINE 20 MG/50 ML IVPB 20 MG/50 ML MG IVPB ONE ×2 (03:18→04:11)
[2018-02-16] MEDS ORDERED: LOPERAMIDE HCL 2 MG CAPSULE PO ONE (04:37)
[2018-02-16] MEDS ORDERED: LOPERAMIDE HCL 2 MG CAPSULE ONE (04:53)
--- NOTE | 2018-02-16 05:40 | PN ---
Teaching Attending Note Name of Resident: Juan C Sanders ATTENDING PHYSICIAN STATEMENT I saw and evaluated the patient. I reviewed the resident's note and discussed the case with the resident. I agree with the resident's findings and plan as documented. SUBJECTIVE: OBJECTIVE: ASSESSMENT AND PLAN: admit the patient for Small bowel obstruction surgical evaluation keep patient NPO HTN managed with IVP f/u with surgery admit to med surge
--- NOTE | 2018-02-16 05:58 | HP ---
CHIEF COMPLAINT: PCP: HISTORY OF PRESENT ILLNESS: 77y/o F with PMH of gastric ulcers, asthma, hypothyroid, HTN, HLD complaining of epigastric pain 4-5 days associated with nausea and vomiting. Pain in the epigastrium is continuous burning 6/10 that radiates to the back, aggravated by laying back w/ no alleviating factors. States she's been vomiting for 4-5 days, now just dry heaves but yesterday her vomitus was black. States she has not eaten in 3-4 days as well. This morning she tried to have some oatmeal but vomited thereafter. She has not had a bowel movement in the past 4 days but has been passing gas. Reports that she was admitted in August for the same symptoms at which time she underwent endoscopy w/ Dr. Kraft and was found to have hiatal hernia. Since then she says she has pain and episodes of vomit 1-2 times per week. In the past week however, her pain has worsened and has become constant and she is constantly vomiting and unable to hold any food down. Since Aug she has lost 12 lbs Denies any fever, chills, SOB, diarrhea, blood in stools, urinary sxs, changes in diet GI: Dr. Kraft ER course was notable for: (1)pepcid, zofran x2, fluids, protonix 40mg, morphine 2mg, lidocaine 2%viscous oral (2) (3) Recent Travel: PAST MEDICAL HISTORY: endoscopy 2016 found to have gastric ulcers Endoscopy 08/2017 found to have hiatal hernia PAST SURGICAL HISTORY: none Social History: Smoking: quit 30 yr ago Alcohol: denies Drugs: denies Family History: DM HTN Allergies Sulfa (Sulfonamide Antibiotics) Allergy (Verified 08/21/17 15:15) HOME MEDICATIONS: Albuterol Home Medications Medication Instructions Recorded Levothyroxine [Synthroid -] 50 mcg PO DAILY 01/28/15 Paroxetine HCl [Paxil] 30 mg PO DAILY 01/28/15 Simvastatin [Zocor -] 20 mg PO HS 01/28/15 Valsartan [Diovan] 320 mg PO DAILY 01/28/15 Acetaminophen [Tylenol 500 mg PO Q8H PRN #100 tablet 08/25/17 .Extra-Strength -] Omeprazole 20 mg PO BID #30 tablet. 02/05/18 REVIEW OF SYSTEMS reviewed in HPI PHYSICAL EXAMINATION Vital Signs - 24 hr 02/15/18 02/16/18 20:21 05:33 Temperature 98.1 F 99.5 F Pulse Rate 88 Pulse Rate [ 85 Left Radial] Respiratory 20 17 Rate Blood Pressure 159/75 Blood Pressure 163/87 [Right Arm] O2 Sat by Pulse 98 94 L Oximetry (%) GENERAL: Awake, alert, and fully oriented, in mild acute distress. HEENT: NCAT. sclera anicteric, conjunctiva clear. No lid lag. oropharynx clear without exudates. MMM. NECK: Normal ROM, supple without lymphadenopathy, JVD, or masses. LUNGS: Diminished breath sounds w/ crackles b/l. No wheezes, and no crackles. No accessory muscle use. HEART: RRR, normal S1 and S2 without murmur, rub or gallop. ABDOMEN: Induced vomiting upon palpation to epigastrium Soft, NTND +BS no guarding, no rebound, no masses. No hepatomegaly or splenomegaly. MUSCULOSKELETAL: Normal range of motion at all joints. No bony deformities or tenderness. UPPER EXTREMITIES: 2+ pulses, warm, well-perfused. No cyanosis. No clubbing. No peripheral edema. LOWER EXTREMITIES: 2+ pulses, warm, well-perfused. No calf tenderness. No peripheral edema. NEUROLOGICAL: Cranial nerves II-XII intact. Normal speech. SKIN: Warm, dry, normal turgor, no rashes or lesions noted, normal capillary refill. Laboratory Results - last 24 hr 02/15/18 02/15/18 02/15/18 21:15 21:15 22:50 WBC 8.3 RBC 3.94 Hgb 12.1 Hct 36.0 D MCV 91.4 MCH 30.8 MCHC 33.7 RDW 14.7 Plt Count 380 D MPV 8.1 Absolute Neuts (auto) 6.5 Neutrophils % 78.1 D Lymphocytes % 14.9 D Monocytes % 4.7 Eosinophils % 1.3 Basophils % 1.0 Nucleated RBC % 0 Sodium 145 Potassium 4.6 Chloride 108 H Carbon Dioxide 28 Anion Gap 9 BUN 21 H Creatinine 1.3 H Creat Clearance w eGFR 39.82 Random Glucose 99 Calcium 9.8 Total Bilirubin 0.3 AST 18 ALT 17 Alkaline Phosphatase 74 Troponin I < 0.02 Total Protein 8.7 H Albumin 4.5 Total Amylase 188 H Lipase 1032 H Stool Occult Blood Negative CXR - hiatal hernia/gastric fluid level located in inferior mediastianal region/ location of the heart CT - gastric volvulus/large hiatal hernia ASSESSMENT/PLAN: 77y/o F with PMH of gastric ulcers, asthma, hypothyroid, HTN, HLD, and chronic epigastric pain/n/v 2/2 hiatal hernia (08/2017) p/w continuous burning 6/10 epigastric pain 4-5 days associated with n/v and inability to tolerate PO. SBO/Gastric volvulus - CXR and CT findings are c/w gastric volvulus/large hiatal hernia. Since Aug she has lost 12 lbs. -NPO -NG tube -surgery consult -GI consult, Dr. Kraft -Zofran 4mg IVP q6hr prn -IV NS 100cc/hr -Protonix 40mg IVP qd -nutrition consult TALIB - 2/2 dehydration and poor PO intake. BUN/Cr 21/1.3 -IV NS 100cc/hr -monitor BMP HCM -hold oral home meds for anxiety, hypothyroid, HTN, HLD until pt can tolerate PO. Try to use IV instead -consider IVP for HTN control #FEN -IV NS 100cc/hr -replete lytes as needed -NPO #DVTppx SQH 5000u tid #Dispo -admit to medsurg -Full code case discussed with attending, Dr. Columba Sanders MD PGY1 Visit type - Emergency Visit Emergency Visit: Yes ED Registration Date: 02/16/18 Care time: The patient presented to the Emergency Department on the above date and was hospitalized for further evaluation of their emergent condition. - New Patient This patient is new to me today: Yes Date on this admission: 02/16/18 - Critical Care Critical Care patient: No Hospitalist Screening - Colonoscopy Questionnaire Colonoscopy Questionnaire: Colonoscopy Questionnaire - Patient: 50 - 75 years old and never had a screening colonoscopy: Unknown History of colon or rectal polyps, or CA: Unknown History of IBD, Crohn's disease or UC: Unknown History of abdominal radiation therapy as a child: Unknown - Relative: 1 with colon or rectal CA, or polyps at age 60 or younger: Unknown Colon or rectal CA diagnosed at age 45 or younger: Unknown Multiple relatives with colon or rectal CA: Unknown - Outcome: Screening Result: Negative Screen
[2018-02-16] MEDS ORDERED: ONDANSETRON 4 MG/2 ML VIAL IVPUSH PRN (06:06)
[2018-02-16] MEDS: SODIUM CHLORIDE 1,000 ML IV SCH ×2 (06:10→09:33)
[2018-02-16] MEDS ORDERED: HEPARIN NA (PORCINE) 5,000 UNITS/ML 1ML VIAL ONE ×2 (06:36→06:41)
[2018-02-16] MEDS: HEPARIN NA (PORCINE) 5,000 UNITS/ML 1ML VIAL SQ SCH ×3 (06:43→21:20)
[2018-02-16 08:51] LABS: BASO % 0.7 % (0-2.0); EOS % 0.5 % (0-4.5); HEMATOCRIT 30.4 % (32.4-45.2); HEMOGLOBIN 10.4 GM/dL (10.7-15.3); LYMPH % 16.1 % (8-40); MCHC 34.2 g/dl (32.0-36.0); MEAN CELL VOLUME 90.7 fl (80-96); MONO % 7.5 % (3.8-10.2); NEUT % 75.2 % (42.8-82.8); PLATELET COUNT 331 K/MM3 (134-434); RBC 3.35 M/mm3 (3.60-5.2); RDW 14.6 % (11.6-15.6); WHITE BLOOD COUNT 6.9 K/mm3 (4.0-10.0)
[2018-02-16 09:08] LABS: INR 1.04 (0.82-1.09); PROTHROMBIN TIME (PATIENT) 11.8 SEC (9.7-13.0)
[2018-02-16 09:10] LABS: ACTIVATED PTT 29.1 SECONDS (25.2-36.5)
[2018-02-16 09:27] LABS: ALBUMIN 3.7 g/dl (3.4-5.0); ALK PHOS 59 U/L (45-117); ANION GAP 8 (8-16); BILIRUBIN,TOTAL 0.3 mg/dL (0.2-1.0); BLOOD UREA NITROGEN 16 mg/dL (7-18); CALCIUM 8.9 mg/dL (8.5-10.1); CHLORIDE 111 mmol/L (98-107); CO2 27 mmol/L (21-32); CREATININE 1.1 mg/dL (0.55-1.02); GLUCOSE,RANDOM 96 mg/dL (74-106); MAGNESIUM 2.1 mg/dL (1.8-2.4); PHOSPHOROUS 3.1 mg/dL (2.5-4.9); POTASSIUM 4.1 mmol/L (3.5-5.1); SGOT/AST 18 U/L (15-37); SGPT/ALT 12 U/L (12-78); SODIUM 146 mmol/L (136-145); TOT PROT 6.9 g/dl (6.4-8.2)
[2018-02-16] MEDS ORDERED: PT OWN MED DRAWER 7, Y5N ONE (09:40)
[2018-02-16] MEDS ORDERED: MORPHINE SULFATE 2 MG/ML VIAL IVPUSH PRN (09:40)
[2018-02-16] MEDS ORDERED: PANTOPRAZOLE SODIUM 40 MG VIAL IVPUSH SCH (10:00)
--- NOTE | 2018-02-16 10:12 | EKG ---
Test Reason : Blood Pressure : / mmHG Vent. Rate : 082 BPM Atrial Rate : 082 BPM P-R Int : 146 ms QRS Dur : 074 ms QT Int : 400 ms P-R-T Axes : 014 -01 006 degrees QTc Int : 467 ms NORMAL SINUS RHYTHM CANNOT RULE OUT SEPTAL INFARCT , AGE UNDETERMINED ABNORMAL ECG WHEN COMPARED WITH ECG OF 21-AUG-2017 15:30, LIKELY NO SIGNIFICANT ECG CHANGES Confirmed by YEN ARRIAZA, DIVINA ([id number]) on 02/16/2018 10:12:23 AM Referred By: Confirmed By:DIVINA BARLOW MD
--- NOTE | 2018-02-16 10:50 | CONSULT ---
- Consultation REQUESTING PROVIDER: Sukumar Beman CONSULT REQUEST: We have been asked to surgically evaluate this patient for abd pain, gastric volvulus, n/v PCP: Judy Rangel HPI:Called to daiana 77yo female with PMHx noted below. Patient comes to [facility] ED w / c/o epigastric pain for past 4-5 days. Admits to n/v. States pain radiates to her back. Yesterday, states her vomit appeared black. Informs me that she was last admitted to Hospital 12/20/[address] Kraft performed an Endoscopy --> hiatal hernia. On previous Endoscopy 2017 gastric ulcers. In the past week however, her pain has worsened and has become constant and she is constantly vomiting and unable to hold any food down. Since Aug she has lost 12 lbs. She had a CXR and CT are consistent gastric volvulus and large hiatal hernia. She had an ngt placed in ER and states she feels much better. Currently , denies fever, chills, SOB, diarrhea, blood in stools, hematuria, dysuria Social Hx: Quit 30yrs ago. Alcohol: denies. Drugs: denies PMHx: gastric ulcers, asthma, hypothyroid, HTN, HLD PSHx: Denies. Home Medications 3 Levothyroxine [Synthroid -] 50 mcg PO DAILY 01/28/15 Paroxetine HCl [Paxil] 30 mg PO DAILY 01/28/15 Simvastatin [Zocor -] 20 mg PO HS 01/28/15 Valsartan [Diovan] 320 mg PO DAILY 01/28/15 Acetaminophen [Tylenol 500 mg PO Q8H PRN #100 tablet 08/25/17 Omeprazole 20 mg PO BID #30 tablet. 08/25/17 Allergies: Sulfa (Sulfonamide Antibiotics) Allergy (Verified 08/21/17 15:15) ROS: Systems reviewed and considered negative except for what's contained in HPI. PE: GENERAL: A&Ox3. NAD HEENT: NC. AT. Sclera anicteric, conjunctiva clear. NECK: Normal ROM, supple without lymphadenopathy, JVD, or masses. LUNGS: CTA bilat HEART: RRR ABDOMEN: Soft. NT/ND. +BS in all quadrants. Neg guarding/rebound rebound, no masses. MUSCULOSKELETAL: Neg CVAT bilat UE: 2+ pulses, warm, well-perfused. No cyanosis. No clubbing. No peripheral edema. LE: 2+ pulses, warm, well-perfused. No calf tenderness. No peripheral edema. NEUROLOGICAL: CN II-XII grossly intact SKIN: Warm, dry, normal turgor, no rashes or lesions noted, normal capillary refill. Last Vital Signs Temp Pulse Resp BP Pulse Ox 98.3 F 85 20 148/79 93 L 02/16/18 08:56 02/16/18 08:56 02/16/18 08:56 02/16/18 08:56 02/16/18 06:47 CBC, BMP 02/16/18 08:44 02/16/18 08:44 Blood Type Blood Type O POSITIVE 02/16/18 08:44 INR, PTT INR 1.04 (0.82-1.09) 02/16/18 08:44 Hepatic Panel Total Bilirubin 0.3 mg/dL (0.2-1.0) 02/16/18 08:44 AST 18 U/L (15-37) 02/16/18 08:44 ALT 12 U/L (12-78) 02/16/18 08:44 Alkaline Phosphatase 59 U/L (45-117) D 02/16/18 08:44 Albumin 3.7 g/dl (3.4-5.0) 02/16/18 08:44 Problem List - Problems (1) Epigastric pain Assessment/Plan: Admitted with epigastric pain, n/v. Patient has known hiatal hernia and gastric ulcers. Patient is not toxic appearing. resting comfortable at this time. Cont NGT to intermittent LWCS OOB and ambulate PRN GI Consult Patient could benefit from Hiatal surgery repair. Dr. Sanchez doesn't do this procedure. I have consulted Dr. Lanier who will have discussion with patient regarding Robotic repair of her hiatal hernia Cont medical management Surgery Team to cont following Code(s): R10.13 - EPIGASTRIC PAIN (2) Gastric ulcer Code(s): K25.9 - GASTRIC ULCER, UNSP ACUTE OR CHRONIC, W/O HEMOR OR PERF Visit type - Case Type Case Type: ED Admission - Emergency Emergency Visit: Yes ED Registration Date: 02/16/18 Care time: The patient presented to the Emergency Department on the above date and was hospitalized for further evaluation of their emergent condition. - New patient This patient is new to me today: Yes Date on this admission: 02/16/18
--- NOTE | 2018-02-16 11:30 | CON.GI ---
Consult Consult Specialty:: GI Reason for Consultation:: nausea and vomiting, abnormal GI imaging. - History of Present Illness History of Present Illness: Chart reviewed. Events noted. The pt is known to GI service from prior encounters. Deidra presents to ED with c/o nausea and vomiting worsening over the last 4 days. No fever, chills, jaundice, melena, hematochezia, hematemesis. No recent travels, exposure to ill, new medications. In ED, imaging revealed possible gastric valvulous. An NGT alleviated the symptoms of nause and vomiting. EGD 08/2017 revealed a large halal hernia, and otherwise normal study. Sx was consulted. The pt was seen and examined on the [facility] [place] floor with NGT in place. - History Source History Provided By: Patient, Medical Record - Alcohol/Substance Use Hx Alcohol Use: No - Smoking History Smoking history: Former smoker Have you smoked in the past 12 months: No If you are a former smoker, when did you quit?: 1989 Home Medications - Allergies Allergies/Adverse Reactions: Allergies Allergy/AdvReac Type Severity Reaction Status Date / Time Sulfa (Sulfonamide Allergy Verified 08/21/17 15:15 Antibiotics) - Home Medications Home Medications: Ambulatory Orders Levothyroxine [Synthroid -] 50 mcg PO DAILY 01/28/15 Paroxetine HCl [Paxil] 30 mg PO DAILY 01/28/15 Simvastatin [Zocor -] 20 mg PO HS 01/28/15 Valsartan [Diovan] 320 mg PO DAILY 01/28/15 Acetaminophen [Tylenol .Extra-Strength -] 500 mg PO Q8H PRN #100 tablet Omeprazole 20 mg PO BID #30 tablet. 08/25/17 Family Disease History - Family Disease History Family History: Unremarkable Review of Systems Findings/Remarks: as per HPI, H&P, ED Physical Exam-GI Vital Signs: Vital Signs Temperature 98.3 F 02/16/18 08:56 Pulse Rate 85 02/16/18 08:56 Respiratory Rate 20 02/16/18 08:56 Blood Pressure 148/79 02/16/18 08:56 O2 Sat by Pulse Oximetry (%) 93 L 02/16/18 06:47 Constitutional: Yes: Well Nourished, No Distress, Calm Eyes: Yes: Conjunctiva Clear HENT: Yes: Atraumatic, Other (NGT to LIS with mnimal clear return) Neck: Yes: Supple Respiratory: Yes: Regular Gastrointestinal Inspection: No: Distention ...Auscultate: Yes: Normoactive Bowel Sounds ...Palpate: No: Firm/Rigid, Guarding Neurological: Yes: Alert, Oriented Labs: CBC, BMP 02/16/18 08:44 02/16/18 08:44 INR, PTT INR 1.04 (0.82-1.09) 02/16/18 08:44 Laboratory Last Values WBC 6.9 K/mm3 (4.0-10.0) 02/16/18 08:44 RBC 3.35 M/mm3 (3.60-5.2) L 02/16/18 08:44 Hgb 10.4 GM/dL (10.7-15.3) L 02/16/18 08:44 Hct 30.4 % (32.4-45.2) L D 02/16/18 08:44 MCV 90.7 fl (80-96) 02/16/18 08:44 MCH 31.0 pg (25.7-33.7) 02/16/18 08:44 MCHC 34.2 g/dl (32.0-36.0) 02/16/18 08:44 RDW 14.6 % (11.6-15.6) 02/16/18 08:44 Plt Count 331 K/MM3 (134-434) 02/16/18 08:44 MPV 8.0 fl (7.5-11.1) 02/16/18 08:44 Absolute Neuts (auto) 5.1 # 02/16/18 08:44 Neutrophils % 75.2 % (42.8-82.8) 02/16/18 08:44 Lymphocytes % 16.1 % (8-40) 02/16/18 08:44 Monocytes % 7.5 % (3.8-10.2) 02/16/18 08:44 Eosinophils % 0.5 % (0-4.5) 02/16/18 08:44 Basophils % 0.7 % (0-2.0) 02/16/18 08:44 Nucleated RBC % 0 % (0-0) 02/16/18 08:44 PT with INR 11.80 SEC (9.7-13.0) 02/16/18 08:44 INR 1.04 (0.82-1.09) 02/16/18 08:44 PTT (Actin FS) 29.1 SECONDS (25.2-36.5) 02/16/18 08:44 Sodium 146 mmol/L (136-145) H 02/16/18 08:44 Potassium 4.1 mmol/L (3.5-5.1) 02/16/18 08:44 Chloride 111 mmol/L (98-107) H 02/16/18 08:44 Carbon Dioxide 27 mmol/L (21-32) 02/16/18 08:44 Anion Gap 8 (8-16) 02/16/18 08:44 BUN 16 mg/dL (7-18) 02/16/18 08:44 Creatinine 1.1 mg/dL (0.55-1.02) H 02/16/18 08:44 Creat Clearance w eGFR 48.29 (>60) 02/16/18 08:44 Random Glucose 96 mg/dL (74-106) 02/16/18 08:44 Calcium 8.9 mg/dL (8.5-10.1) 02/16/18 08:44 Phosphorus 3.1 mg/dL (2.5-4.9) 02/16/18 08:44 Magnesium 2.1 mg/dL (1.8-2.4) 02/16/18 08:44 Total Bilirubin 0.3 mg/dL (0.2-1.0) 02/16/18 08:44 AST 18 U/L (15-37) 02/16/18 08:44 ALT 12 U/L (12-78) 02/16/18 08:44 Alkaline Phosphatase 59 U/L (45-117) D 02/16/18 08:44 Troponin I < 0.02 ng/ml (0.00-0.05) 02/15/18 21:15 Total Protein 6.9 g/dl (6.4-8.2) 02/16/18 08:44 Albumin 3.7 g/dl (3.4-5.0) 02/16/18 08:44 Total Amylase 188 U/L (25-115) H 02/15/18 21:15 Lipase 1032 U/L (73-393) H 02/15/18 21:15 Stool Occult Blood Negative (NEGATIVE) 02/15/18 22:50 Blood Type O POSITIVE 02/16/18 10:05 Antibody Screen Negative 02/16/18 08:44 Imaging - Results X-ray: Report Reviewed Cat Scan: Pending Problem List - Problems (1) Hiatal hernia Code(s): K44.9 - DIAPHRAGMATIC HERNIA WITHOUT OBSTRUCTION OR GANGRENE Assessment/Plan A 77F with a large hiatal hernia and possible gastric valvulous without signs of toxicity, or surgical abdomen. Asymptomatic with NGT in place. Close monitoring. Monitor and correct electrolytes as needed. PPI IV BID IVF NGT to LIS Sx follow up CT formal reading
--- NOTE | 2018-02-16 11:57 | HOSP ---
Subjective - Review of Symptoms Subjective: pt seen and examined. She is denies further nausea or vomiting since NGT placed. Discomfort relieved since ngt placed. Physical Examination Vital Signs: Vital Signs Temperature 98.3 F 02/16/18 08:56 Pulse Rate 85 02/16/18 08:56 Respiratory Rate 20 02/16/18 08:56 Blood Pressure 148/79 02/16/18 08:56 O2 Sat by Pulse Oximetry (%) 93 L 02/16/18 06:47 Findings/Remarks: PE Neuro: alert, awake, cn 2-12intact HEENT: NGT, suction brown outpt Pulm: CTAB CV: s1 s2 rrr no mrg Abd: S nt nd + bs Ext: warm, no le edema Labs: CBC, BMP 02/16/18 08:44 02/16/18 08:44 Hospitalist Encounter Assessment: Assessment: 77 year old female admitted with SBO Plan: 1. SBO - Maintain NGT to suction - IV meds for HTN and thryoid - Will likely need hiatal surgery repair, discussed with RYLEE Lanier aware of consult - Change IVF d5 1/2 ns - Protonix BID 2. Hypothroid - Synthroid IV 12.5 mcg daily 3. HTN - Hold PO meds - Monitor BP, stable for now, IV meds as needed 4. DVT - Heparin sq
[2018-02-16] MEDS: LEVOTHYROXINE SODIUM 100 MCG VIAL IVPUSH SCH (14:31)
[2018-02-16] MEDS: DEXTROSE 5%-0.45% SALINE 1,000 ML IV SCH (14:38)
--- NOTE | 2018-02-16 20:08 | PN ---
Progress Note (short form) - Note Progress Note: DISCUSSED WITH PATIENT AND HER FAMILY WILL TRANSFER TO MY SERVICE AND TAKE OVER CARE OF 8;10PM MICHELLE. STAFF NOTIFIED, ANY CONCERNS OR QUESTIONS CALL ME DIRECTLY ON MY CELL .
[2018-02-16] MEDS: PANTOPRAZOLE SODIUM 40 MG VIAL IVPUSH SCH (21:20)
[2018-02-17] MEDS: DEXTROSE 5%-0.45% SALINE 1,000 ML IV SCH ×2 (02:01→13:34)
[2018-02-17] MEDS ORDERED: ACETAMINOPHEN 1000 MG/100 ML VIAL (NON FORMULARY) IVPB ONE (03:00)
[2018-02-17] MEDS: HEPARIN NA (PORCINE) 5,000 UNITS/ML 1ML VIAL SQ SCH ×3 (06:26→21:50)
[2018-02-17 07:28] LABS: BASO % 0.8 % (0-2.0); EOS % 3.3 % (0-4.5); HEMATOCRIT 30.5 % (32.4-45.2); HEMOGLOBIN 10.6 GM/dL (10.7-15.3); LYMPH % 24.6 % (8-40); MCH 31.5 pg (25.7-33.7); MCHC 34.6 g/dl (32.0-36.0); MONO % 6.9 % (3.8-10.2); NEUT % 64.4 % (42.8-82.8); PLATELET COUNT 321 K/MM3 (134-434); RBC 3.35 M/mm3 (3.60-5.2); RDW 14.2 % (11.6-15.6); WHITE BLOOD COUNT 7.8 K/mm3 (4.0-10.0)
--- NOTE | 2018-02-17 07:54 | PN ---
Progress Note, Physician Chief Complaint: AWAKE ALERT EVENTS REVIEWED DENIES CHEST PAIN/SOB HAS SOME NAUSEA, FEVER OVERNIGHT - Current Medication List Current Medications: Active Medications Heparin Sodium (Porcine) (Heparin -) 5,[address] [facility] Last Admin: 02/17/18 06:26 Dose: 5,000 unit Dextrose/Sodium Chloride (D5-1/2ns -) 1,000 mls @ 100 mls/hr IV ASDIR [facility] Last Admin: 02/17/18 02:01 Dose: 100 mls/hr Levothyroxine Sodium (Synthroid Injection -) 12.[address] [facility] Last Admin: 02/16/18 14:31 Dose: 12.5 mcg Morphine Sulfate (Morphine Sulfate) 2 mg IVPUSH Q4H PRN PRN Reason: PAIN LEVEL 6-10 Last Admin: 02/16/18 14:27 Dose: 2 mg Ondansetron HCl (Zofran Injection) 4 mg IVPUSH Q6H PRN PRN Reason: NAUSEA Pantoprazole Sodium (Protonix Iv) [address] [facility] Last Admin: 02/16/18 21:20 Dose: 40 mg - Objective Vital Signs: Vital Signs Temperature 99.5 F 02/17/18 06:00 Pulse Rate 80 02/17/18 06:00 Respiratory Rate 18 02/17/18 06:00 Blood Pressure 132/61 02/17/18 06:00 O2 Sat by Pulse Oximetry (%) 94 L 02/16/18 21:00 Constitutional: Yes: No Distress Eyes: Yes: WNL HENT: Yes: WNL Neck: Yes: WNL, Tenderness Respiratory: Yes: WNL Gastrointestinal: Yes: WNL Genitourinary: Yes: WNL Musculoskeletal: Yes: WNL Extremities: Yes: WNL Edema: No Peripheral Pulses WNL: Yes Integumentary: Yes: WNL Wound/Incision: Yes: Clean/Dry Neurological: Yes: WNL ...Motor Strength: WNL Psychiatric: Yes: WNL Labs: CBC, BMP 02/17/18 06:30 INR, PTT INR 1.04 (0.82-1.09) 02/16/18 08:44 Problem List - Problems (1) Acute pancreatitis Code(s): K85.90 - ACUTE PANCREATITIS WITHOUT NECROSIS OR INFECTION, UNSP Qualifiers: Pancreatitis type: unspecified pancreatitis type Acute pancreatitis complication: unspecified Qualified Code(s): K85.90 - Acute pancreatitis without necrosis or infection, unspecified (2) Epigastric pain Code(s): R10.13 - EPIGASTRIC PAIN (3) Gastric volvulus Code(s): K31.89 - OTHER DISEASES OF STOMACH AND DUODENUM (4) Hiatal hernia Code(s): K44.9 - DIAPHRAGMATIC HERNIA WITHOUT OBSTRUCTION OR GANGRENE Assessment/Plan CHECK XRAY ABD/CXR NOW CAN DC NGT IF CLEARED BY GI/SX START CLEAR DIET ONCE NGT REMOVED F/U LABS DVT PROPHYLAXIS OOB TO CHAIR/PT
[2018-02-17 07:57] LABS: CHLORIDE 108 mmol/L (98-107); POTASSIUM 3.6 mmol/L (3.5-5.1); SODIUM 143 mmol/L (136-145)
[2018-02-17 08:08] LABS: ALBUMIN 3.5 g/dl (3.4-5.0); ALK PHOS 59 U/L (45-117); ANION GAP 7 (8-16); BILIRUBIN,TOTAL 0.3 mg/dL (0.2-1.0); BLOOD UREA NITROGEN 10 mg/dL (7-18); CALCIUM 8.6 mg/dL (8.5-10.1); CO2 28 mmol/L (21-32); CREATININE 1.2 mg/dL (0.55-1.02); GLUCOSE,RANDOM 105 mg/dL (74-106); PHOSPHOROUS 3.2 mg/dL (2.5-4.9); SGOT/AST 15 U/L (15-37); SGPT/ALT 13 U/L (12-78); TOT PROT 6.8 g/dl (6.4-8.2)
[2018-02-17] MEDS: PANTOPRAZOLE SODIUM 40 MG VIAL IVPUSH SCH (09:26)
[2018-02-17] MEDS: LEVOTHYROXINE SODIUM 100 MCG VIAL IVPUSH SCH (11:39)
[2018-02-17 12:02] VITALS: BMI 24.8
--- NOTE | 2018-02-17 13:07 | PN ---
Progress Note (short form) - Note Progress Note: Remove NGT and observe for 2 hrs. Start clear liquid diet if remains asymptomatic. Discussed with the pt and her son last evening. Problem List - Problems (1) Hiatal hernia Code(s): K44.9 - DIAPHRAGMATIC HERNIA WITHOUT OBSTRUCTION OR GANGRENE
[2018-02-17] MEDS ORDERED: MAGNESIUM HYDROX 2400MG/30ML ORAL SUSPENSION 30 ML CUP PO ONE (14:33)
[2018-02-17] MEDS ORDERED: SIMETHICONE 80 MG TAB.CHEW (FP) PO PRN (14:33)
--- NOTE | 2018-02-17 15:27 | CONSULT ---
Consult Consult Specialty:: Surgery Reason for Consultation:: Hiatal hernia - History of Present Illness History of Present Illness: 77 female with history of paraesophageal/hiatal hernia tretaed conservatively Presents with vomiting black fluid x multiple days and epigastric abdominal pain radiating to her back CT showed paraesophageal/hiatal hernia NG tube placed for decompression Pain improved No further vomiting No fevers Tolerating some liquids - History Source History Provided By: Patient, Family Member Limitations to Obtaining History: No Limitations - Alcohol/Substance Use Hx Alcohol Use: No - Smoking History Smoking history: Former smoker Have you smoked in the past 12 months: No If you are a former smoker, when did you quit?: 1989 Home Medications - Allergies Allergies/Adverse Reactions: Allergies Allergy/AdvReac Type Severity Reaction Status Date / Time Sulfa (Sulfonamide Allergy Verified 08/21/17 15:15 Antibiotics) - Home Medications Home Medications: Ambulatory Orders Levothyroxine [Synthroid -] 50 mcg PO DAILY 01/28/15 Paroxetine HCl [Paxil] 30 mg PO DAILY 01/28/15 Simvastatin [Zocor -] 20 mg PO HS 01/28/15 Valsartan [Diovan] 320 mg PO DAILY 01/28/15 Acetaminophen [Tylenol .Extra-Strength -] 500 mg PO Q8H PRN #100 tablet Omeprazole 20 mg PO BID #30 tablet. 08/25/17 Family Disease History - Family Disease History Family History: Unremarkable Review of Systems - Review of Systems Constitutional: denies: Chills, Fever HENT: reports: No Symptoms Neck: reports: No Symptoms Cardiovascular: reports: No Symptoms Respiratory: reports: No Symptoms Gastrointestinal: reports: Abdominal Pain, Vomiting Genitourinary: reports: No Symptoms Neurological: denies: Change in LOC Pain Intensity: 3 Physical Exam Vital Signs: Vital Signs Temperature 99.0 F 02/17/18 14:05 Pulse Rate 79 02/17/18 14:05 Respiratory Rate 18 02/17/18 14:05 Blood Pressure 133/61 02/17/18 14:05 O2 Sat by Pulse Oximetry (%) 98 02/17/18 09:00 Constitutional: Yes: Calm Neck: Yes: WNL Cardiovascular: Yes: WNL Respiratory: Yes: Regular Gastrointestinal: Yes: Soft. No: Distention, Tenderness, Tenderness, Epigastrium, Tenderness, Rebound Neurological: Yes: Alert, Oriented Labs: CBC, BMP 02/17/18 06:30 02/17/18 06:30 Imaging - Results Cat Scan: Report Reviewed, Image Reviewed Problem List - Problems (1) Paraesophageal hiatal hernia Code(s): K44.9 - DIAPHRAGMATIC HERNIA WITHOUT OBSTRUCTION OR GANGRENE Assessment/Plan Paraesophageal hernia Doing well with conservative management Continue liquids If tolerates advance as tolerated Does not want surgical intervention at this time Discussed elective repair
[2018-02-17] MEDS ORDERED: PARoxetine HCL 30 MG TABLET PO SCH (17:45)
[2018-02-17] MEDS: PANTOPRAZOLE 40 MG TABLET (FP) PO SCH (21:50)
[2018-02-17] MEDS ORDERED: SENNOSIDES 8.6MG TABLET (FP) PO SCH (22:00)
[2018-02-18] MEDS: HEPARIN NA (PORCINE) 5,000 UNITS/ML 1ML VIAL SQ SCH ×2 (06:40→13:49)
[2018-02-18] MEDS ORDERED: LEVOTHYROXINE NA 50 MCG TABLET (FP) PO SCH (07:00)
--- NOTE | 2018-02-18 07:54 | DS ---
Physical Examination Vital Signs: Vital Signs Temperature 98.8 F 02/18/18 06:00 Pulse Rate 85 02/18/18 06:00 Respiratory Rate 18 02/18/18 06:00 Blood Pressure 157/70 02/18/18 06:00 O2 Sat by Pulse Oximetry (%) 96 02/17/18 22:00 Findings/Remarks: AWAKE ALERT TOLERATING SOFT DIET Constitutional: Yes: No Distress Eyes: Yes: WNL HENT: Yes: WNL Neck: Yes: WNL Cardiovascular: Yes: WNL Respiratory: Yes: WNL Gastrointestinal: Yes: WNL Renal/: Yes: WNL Musculoskeletal: Yes: WNL Extremities: Yes: WNL Edema: No Peripheral Pulses WNL: Yes Integumentary: Yes: WNL Wound/Incision: Yes: Clean/Dry Neurological: Yes: WNL ...Motor Strength: WNL Psychiatric: Yes: WNL Labs: CBC, BMP 02/17/18 06:30 Discharge Summary Reason For Visit: EPIGASTRIC PAIN,GASTRIC VOVULUS,ACUTE PANCREATITIS Current Active Problems Acute pancreatitis (Acute) Epigastric pain (Acute) Gastric volvulus (Acute) Hiatal hernia (Acute) Paraesophageal hiatal hernia (Acute) Procedures: Principal: CT SCAN ABD Hospital Course: ADMITTED FOR GASTRIC VOLVULUS AND SUPPORTIVE CARE IVF, IV PROTONIX, NGT PLACED, IMPROVED ON LIQUID DIET AND CAN F/U OUTPATIENT WITH SURGERY Condition: Improved - Instructions Diet, Activity, Other Instructions: SEE YOUR PRIMARY DOCTOR IN 1 WEEK F/U WITH DR LANIER FOR SURGERY IN THE FUTURE IF SYMPTOMS WORSEN SOFT DIET, LOW FAT Referrals: Corey Lanier MD [Staff Physician] - Disposition: HOME - Home Medications Comprehensive Discharge Medication List: Ambulatory Orders Levothyroxine [Synthroid -] 50 mcg PO DAILY 01/28/15 Paroxetine HCl [Paxil] 30 mg PO DAILY 01/28/15 Simvastatin [Zocor -] 20 mg PO HS 01/28/15 Valsartan [Diovan] 320 mg PO DAILY 01/28/15 Acetaminophen [Tylenol .Extra-Strength -] 500 mg PO Q8H PRN #100 tablet Omeprazole 20 mg PO BID #30 tablet. 08/25/17
[2018-02-18 08:10] LABS: ANION GAP 9 (8-16); BLOOD UREA NITROGEN 7 mg/dL (7-18); CALCIUM 8.7 mg/dL (8.5-10.1); CHLORIDE 108 mmol/L (98-107); CO2 28 mmol/L (21-32); GLUCOSE,RANDOM 76 mg/dL (74-106); MAGNESIUM 2.1 mg/dL (1.8-2.4); PHOSPHOROUS 3.5 mg/dL (2.5-4.9); POTASSIUM 3.3 mmol/L (3.5-5.1); SODIUM 145 mmol/L (136-145)
[2018-02-18] MEDS ORDERED: POTASSIUM CHLORIDE TABS 20 MEQ TABLET.ER (FP) PO ONE (09:00)
[2018-02-18] MEDS ORDERED: PT OWN MED DRAWER 7, Y5N ONE (09:48)
[2018-02-18] MEDS: PANTOPRAZOLE 40 MG TABLET (FP) PO SCH (09:50)
[2018-02-18] MEDS ORDERED: PARoxetine HCL 10 MG TABLET (FP) PO SCH (10:00)
[2018-02-18] MEDS ORDERED: LACTOBACILLUS ACIDOPHILUS 1 TABLET PO SCH (10:00)
--- NOTE | 2018-02-18 13:17 | PN ---
Progress Note (short form) - Note Progress Note: Tolerating soft diet. Advance diet and observe Problem List - Problems (1) Hiatal hernia Code(s): K44.9 - DIAPHRAGMATIC HERNIA WITHOUT OBSTRUCTION OR GANGRENE
[2018-02-18 14:41] VITALS: BP 146/76; PULSE 86; TEMP 98.3
== END 2018-02-18 18:30 | disposition home or self-care (01) | DRG 391 ==
LOC: JER 20:02 → JERBED 02-16 04:27 → J8W 02-16 08:22
PROVIDERS: ADMIT Family Medicine; ATTEND Family Medicine
PROC: 0D9670Z Drainage of Stomach with Drainage Device, Via Natural or Artificial Opening (ICD-10-PCS; principal; 2018-02-17)
DX: K31.89 Other diseases of stomach and duodenum (principal); K85.90 Acute pancreatitis without necrosis or infection, unspecified; K56.609 Unspecified intestinal obstruction, unspecified as to partial versus complete obstruction; N17.9 Acute kidney failure, unspecified; E86.0 Dehydration; I10 Essential (primary) hypertension; E78.5 Hyperlipidemia, unspecified; E03.9 Hypothyroidism, unspecified; K44.9 Diaphragmatic hernia without obstruction or gangrene; K25.9 Gastric ulcer, unspecified as acute or chronic, without hemorrhage or perforation
CPT/HCPCS: 36415; 71045-TC-FY; 71046-TC-FY; 74018-TC-FY; 74177-TC; 80048; 80053; 82150; 82272; 83690; 83735; 84100; 84484; 85025; 85610; 85730; 86850; 86900; 86901; 93005; 93010; 99283-25; J0131; J1644; J7030

== ENCOUNTER 2018-02-18 23:59 | Observation (INO) | payer OTHER ==
[2018-02-19 00:34] VITALS: BMI 24.9
--- NOTE | 2018-02-19 00:48 | PDOC ---
History of Present Illness - General Stated Complaint: NAUSEA/VOMITING Time Seen by Provider: 02/19/18 00:41 - History of Present Illness Initial Comments: 77yo F presenting with epigastric abdominal pain and intractable vomiting. Patient was admitted at this hospital for gastric volvulus, hiatal hernia, and pancreatitis when she was discharged this evening around 5pm. Around 8pm, she had a light meal of solid food when she felt the same pain and symptoms for which she was previously admitted. The vomit was nonbilious and nonbloody x 5 episodes prior to arrival. Denies fever, chills, chest pain, shortness of breath. Past History - Past Medical History Allergies/Adverse Reactions: Allergies Allergy/AdvReac Type Severity Reaction Status Date / Time Sulfa (Sulfonamide Allergy Verified 08/21/17 15:15 Antibiotics) Home Medications: Ambulatory Orders Paroxetine HCl [Paxil] 30 mg PO DAILY 01/28/15 Simvastatin [Zocor -] 20 mg PO HS 01/28/15 Valsartan [Diovan] 320 mg PO DAILY 01/28/15 Pantoprazole Sodium [Protonix -] 40 mg PO BID #60 tablet.ec 02/18/18 Levothyroxine [Synthroid -] 50 mcg PO DAILY 02/19/18 Omeprazole 20 mg PO DAILY 02/19/18 Asthma: Yes DVT: No GI Disorders: Yes (gastric ulcer, hiatal hernia) HTN: Yes Hypercholesterolemia: Yes Thyroid Disease: Yes (hypo) - Immunization History Immunization Up to Date: Yes - Suicide/Smoking/Psychosocial Hx Smoking History: Never smoked Have you smoked in the past 12 months: No If you are a former smoker, when did you quit?: 1989 Information on smoking cessation initiated: No Hx Alcohol Use: No Drug/Substance Use Hx: No Substance Use Type: None, Alcohol Hx Substance Use Treatment: No Review of Systems - Review of Systems Comments:: Constitutional: no fever, no chills Cardiovascular: no chest pain, no palpitations Respiratory: no cough, no shortness of breath Gastrointestinal: +abdominal pain,+nausea, +vomiting Genitourinary: no dysuria, no frequency Musculoskeletal: no myalgia, no arthralgia Skin: no rash, no itching Neurologic: no headache, no dizziness *Physical Exam - Vital Signs Last Vital Signs Temp Pulse Resp BP Pulse Ox 98.8 F 85 18 157/85 98 02/19/18 00:30 02/19/18 00:30 02/19/18 00:30 02/19/18 00:30 02/19/18 00:30 - Physical Exam Comments: General: Awake, alert, and fully oriented, in no acute distress Head: no signs of trauma Eyes: EOMI, sclera anicteric ENT: Moist mucus membranes, Neck: Normal ROM, supple Lungs: Lungs clear, Normal breath sounds Cardio: Regular rhythm, S1 and S2 present, Abdomen: Soft, Tender epigastrium, normal bowel sounds. No guarding, no rebound , no masses Extremities: Normal range of motion, Distal pulses present SKIN: Warm, Dry, normal turgor, no rashes or lesions noted Neurologic: Cranial nerves II through XII grossly intact. Normal speech ED Treatment Course - LABORATORY CBC & Chemistry Diagram: 02/19/18 01:44 02/19/18 01:44 Medical Decision Making - Medical Decision Making 77yo F with epigastric pain and intractable vomiting presenting shortly after discharge from this hospital for gastric volvulus, pancreatitis, and hiatal hernia. Lipase elevated at 930 (was 92 on 02/17/18). Troponin negative. EKG 85, QTc 454, NSR. No leukocytosis or anemia. Spoke with hospitalist team who will accept patient for observation. *DC/Admit/Observation/Transfer Diagnosis at time of Disposition: Abdominal pain Qualifiers: Abdominal location: epigastric Qualified Code(s): R10.13 - Epigastric pain Vomiting Qualifiers: Vomiting type: unspecified Vomiting Intractability: intractable Nausea presence : with nausea Qualified Code(s): R11.2 - Nausea with vomiting, unspecified - Discharge Dispostion Condition at time of disposition: Guarded Decision to Admit order: Yes - Referrals - Patient Instructions - Post Discharge Activity
--- NOTE | 2018-02-19 01:15 | PDOC ---
Attending Attestation - HPI HPI: 02/19/18 01:33 The patient is a 77 year old female, with a significant past medical history of gastric volvulus, asthma, hypothyroid, hypertension, hyperlipidemia, UTI, and hiatal hernia, who presents to the emergency department with epigastric pain, nausea, and vomiting. She states she ate a meal at 8PM last night which exacerbated her epigastric pain. She describes the pain at localized, 4/10 in severity. She states her symptoms today are very much like the symptoms associated with her gastric volvulus. The patient denies chest pain, shortness of breath, headache and dizziness. The patient denies fever, chills, diarrhea and constipation. The patient denies dysuria, frequency, urgency and hematuria. Allergies: Sulfa - Medical Decision Making 02/19/18 01:34 Documentation prepared by Isa Sr, acting as medical parasitologist for Deny Redding DO. <Isa Sr - Last Filed: 02/19/18 01:33> - Resident Resident Name: Amalia Rapp - ED Attending Attestation I have performed the following: I have examined & evaluated the patient, The case was reviewed & discussed with the resident, I agree w/resident's findings & plan, Exceptions are as noted - Physicial Exam PE: 02/24/18 19:20 *Physical Exam General Appearance: Yes: Appropriately Dressed. No: Apparent Distress, Intoxicated HEENT: positive: EOMI, SHARI, Normal ENT Inspection, Normal Voice, TMs Normal, Pharynx Normal. negative: Pale Conjunctivae, Photophobia, Scleral Icterus (R), Scleral Icterus (L) Neck: positive: Trachea midline, Normal Thyroid, Supple. negative: Tender, Rigid, Carotid bruit, Stridor, Lymphadenopathy (R), Lymphadenopathy (L), Thyromegaly Respiratory/Chest: positive: Lungs Clear, Normal Breath Sounds. negative: Chest Tender, Respiratory Distress, Accessory Muscle Use, Labored Respiration, RES, Crackles, Rales, Rhonchi, Stridor, Wheezing, Dullness Cardiovascular: positive: Regular Rhythm, Regular Rate, S1, S2. negative: Edema , JVD, Murmur, Bradycardia, Tachycardia Vascular Pulses: Dorsalis-Pedis (R): 2+, Doralis-Pedis (L): 2+ Gastrointestinal/Abdominal: positive: Normal Bowel Sounds, Flat, Soft. negative : Tender, Organomegaly, Pulsatile Mass, Increased Bowel Sounds, Decreased BS, Distended, Guarding, Rebound, Hernia, Hepatomegaly, Spleenomegaly Lymphatic: negative: Adenopathy, Tenderness Musculoskeletal: positive: Normal Inspection. negative: CVA Tenderness, Decreased Range of Motion Extremity: positive: Normal Capillary Refill, Normal Inspection, Normal Range of Motion, Pelvis Stable. negative: Tender, Pedal Edema, Swelling, Erythema Integumentary: positive: Normal Color, Dry, Warm. 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 negative: EOM Palsy, Facial Droop, Sensory Deficit - Medical Decision Making 02/24/18 19:21 Pt was admitted for further evaluation and care <Deny Redding - Last Filed: 02/24/18 19:21>
[2018-02-19] MEDS ORDERED: FAMOTIDINE 20 MG/50 ML IVPB 20 MG/50 ML MG IVPB ONE ×2 (01:22→01:34)
[2018-02-19] MEDS ORDERED: ONDANSETRON 4 MG/2 ML VIAL IVPUSH ONE (01:22)
[2018-02-19] MEDS ORDERED: SODIUM CHLORIDE 1,000 ML IV STA (01:22)
[2018-02-19] MEDS ORDERED: ONDANSETRON 4 MG/2 ML VIAL ONE (01:34)
[2018-02-19 01:55] LABS: BASO % 0.8 % (0-2.0); EOS % 2.6 % (0-4.5); HEMATOCRIT 30.7 % (32.4-45.2); HEMOGLOBIN 10.4 GM/dL (10.7-15.3); LYMPH % 17.7 % (8-40); MCH 30.7 pg (25.7-33.7); MCHC 33.8 g/dl (32.0-36.0); MEAN CELL VOLUME 90.7 fl (80-96); MEAN PLT VOLUME 7.9 fl (7.5-11.1); MONO % 6.8 % (3.8-10.2); NEUT % 72.1 % (42.8-82.8); PLATELET COUNT 340 K/MM3 (134-434); RBC 3.38 M/mm3 (3.60-5.2); RDW 14.4 % (11.6-15.6); WHITE BLOOD COUNT 7.7 K/mm3 (4.0-10.0)
[2018-02-19 02:18] LABS: ALBUMIN 3.6 g/dl (3.4-5.0); ALK PHOS 58 U/L (45-117); ANION GAP 3 (8-16); BILIRUBIN,TOTAL 0.2 mg/dL (0.2-1.0); BLOOD UREA NITROGEN 14 mg/dL (7-18); CALCIUM 9.1 mg/dL (8.5-10.1); CHLORIDE 104 mmol/L (98-107); CO2 33 mmol/L (21-32); CREATININE 1.1 mg/dL (0.55-1.02); GLUCOSE,RANDOM 89 mg/dL (74-106); SGPT/ALT 18 U/L (12-78); SODIUM 140 mmol/L (136-145); TOT PROT 7.4 g/dl (6.4-8.2)
[2018-02-19 02:21] LABS: LIPASE 930 U/L (73-393)
[2018-02-19 02:22] LABS: POTASSIUM 4.5 mmol/L (3.5-5.1); SGOT/AST 32 U/L (15-37)
--- NOTE | 2018-02-19 05:56 | HP ---
CHIEF COMPLAINT: abd pain, nausea and vomiting PCP: PCP HISTORY OF PRESENT ILLNESS: This is a 77 year old female who is s/p recent hospitalization 02/14-02/18 for gastric volvulus, hiatal hernia and pancreatitis who presented to the ED for nausea, vomiting and abdominal pain. The patient reports that she tolerated her diet here in the hospital prior to DC which consisted of cooked carrots, mashed potatoes and fish. She later ate dinner at home which consisted of mashed potatoes and a few bites of grilled chicken. She reports the abdominal pain and vomiting began after eating. Upon exam she is feeling much better and the pain is resolved. Pt states that the pain earlier was so bad it hurt when she breathed. This also has resolved as well. ER course was notable for: (1) Lipase 930 (2) WBC 7.7 Recent Travel: pt denies PAST MEDICAL HISTORY: HTN, HLD, GERD, hiatal hernia, hypothyroidism and recent gastric volvulus and pancreatitis PAST SURGICAL HISTORY: pt denies Social History: Smoking: quit smoking 30 years ago + 25 pack year history Alcohol: pt denies Drugs: pt denies Family History: mother age 73, comps of DM, HTN father age 75, unk sister age 33, ESRD, h/o HTN brother age 47, unknown, "came home from [place] not well" sister age 60, [place], unknown type sister alive with DM and HTN Allergies Sulfa (Sulfonamide Antibiotics) Allergy (Verified 08/21/17 15:15) HOME MEDICATIONS: 3 Medication Instructions Recorded Paroxetine HCl [Paxil] 30 mg PO DAILY 01/28/15 Simvastatin [Zocor -] 20 mg PO HS 01/28/15 Valsartan [Diovan] 320 mg PO DAILY 01/28/15 Pantoprazole Sodium [Protonix -] 40 mg PO BID #60 tablet.ec 02/18/18 Omeprazole 20 mg PO DAILY 02/19/18 REVIEW OF SYSTEMS CONSTITUTIONAL: Absent: fever, chills, diaphoresis, generalized weakness, malaise, loss of appetite, weight change HEENT: Absent: rhinorrhea, nasal congestion, throat pain, throat swelling, difficulty swallowing, mouth swelling, ear pain, eye pain, visual changes CARDIOVASCULAR: Absent: chest pain, syncope, palpitations, irregular heart rate, lightheadedness , peripheral edema RESPIRATORY: Absent: cough, shortness of breath, dyspnea with exertion, orthopnea, wheezing, stridor, hemoptysis GASTROINTESTINAL: Present: abdominal pain, nausea, vomiting Absent: abdominal distension, diarrhea, constipation, melena, hematochezia GENITOURINARY: Absent: dysuria, frequency, urgency, hesitancy, hematuria, flank pain, genital pain MUSCULOSKELETAL: Absent: myalgia, arthralgia, joint swelling, back pain, neck pain SKIN: Absent: rash, itching, pallor HEMATOLOGIC/IMMUNOLOGIC: Absent: easy bleeding, easy bruising, lymphadenopathy, frequent infections ENDOCRINE: Absent: unexplained weight gain, unexplained weight loss, heat intolerance, cold intolerance NEUROLOGIC: Absent: headache, focal weakness or paresthesias, dizziness, unsteady gait, seizure, mental status changes, bladder or bowel incontinence PSYCHIATRIC: Absent: anxiety, depression, suicidal or homicidal ideation, hallucinations. PHYSICAL EXAMINATION Vital Signs - 24 hr 3 02/19/18 00:30 Temperature 98.8 F Pulse Rate 85 Respiratory 18 Rate Blood Pressure 157/85 O2 Sat by Pulse 98 Oximetry (%) GENERAL: Awake, alert, and fully oriented, in no acute distress. HEAD: Normal with no signs of trauma. EYES: Pupils equal, round and reactive to light, extraocular movements intact, sclera anicteric, conjunctiva clear. No lid lag. EARS, NOSE, THROAT: Ears normal, nares patent, oropharynx clear without exudates. Moist mucous membranes. NECK: Normal range of motion, supple without lymphadenopathy, JVD, or masses. LUNGS: Breath sounds equal, clear to auscultation bilaterally. No wheezes, and no crackles. No accessory muscle use. HEART: Regular rate and rhythm, normal S1 and S2 without murmur, rub or gallop. ABDOMEN: Soft, nontender, not distended, normoactive bowel sounds, no guarding, no rebound, no masses. No hepatomegaly or splenomegaly. MUSCULOSKELETAL: Normal range of motion at all joints. No bony deformities or tenderness. No CVA tenderness. UPPER EXTREMITIES: 2+ pulses, warm, well-perfused. No cyanosis. No clubbing. No peripheral edema. LOWER EXTREMITIES: 2+ pulses, warm, well-perfused. No calf tenderness. No peripheral edema. NEUROLOGICAL: Cranial nerves II-XII intact. Normal speech. Normal gait. PSYCHIATRIC: Cooperative. Good eye contact. Appropriate mood and affect. SKIN: Warm, dry, normal turgor, no rashes or lesions noted, normal capillary refill. Laboratory Results - last 24 hr 3 02/19/18 02/19/18 01:44 01:44 WBC 7.7 RBC 3.38 L Hgb 10.4 L Hct 30.7 L MCV 90.7 MCH 30.7 MCHC 33.8 RDW 14.4 Plt Count 340 MPV 7.9 Absolute Neuts (auto) 5.5 Neutrophils % 72.1 Lymphocytes % 17.7 D Monocytes % 6.8 Eosinophils % 2.6 Basophils % 0.8 Nucleated RBC % 0 Sodium 140 Potassium 4.5 Chloride 104 Carbon Dioxide 33 H Anion Gap 3 L BUN 14 Creatinine 1.1 H Creat Clearance w eGFR 48.29 Random Glucose 89 Calcium 9.1 Total Bilirubin 0.2 AST 32 ALT 18 Alkaline Phosphatase 58 Troponin I < 0.02 Total Protein 7.4 Albumin 3.6 Lipase 930 H ECG normal sinus rhythm vent rate 5, QTC 454 septal infarct, age undetermined Radiology Reports CT abd/pelvis THIS IS A PRELIMINARY REPORT FROM [facility] Large hiatal hernia with small free fluid in hernia sac, similar to 02/16/18. Stomach is more decompressed compared to the prior exam. Minimal fat stranding between pancreas and stomach, stable to slightly increased since prior study. Findings could represent early acute pancreatitis. No bowel obstruction, colitis, or free air. Normal appendix. Unremarkable gallbladder. Tiny cyst or hemangioma right lobe of liver Subcentimeter cortical hypodensities left kidney. Small emphysema bilateral lower quadrant abdominal wall, probably related to recent injection. Small bilateral inguinal region hernias containing fat, stable. Small fluid more laterally in right inguinal soft tissues has increased since prior exam, probably fluid within an additional separate hernia sac. Chronic compression fracture L1. Small right and trace left pleural effusions, new since 02/16/18. Individualized dose optimization techniques were used for this CT. THIS DOCUMENT HAS BEEN ELECTRONICALLY SIGNED Mirtha Mendez M.D. 02/19/2018 05:16 EST ASSESSMENT/PLAN: 77yF with PMH HTN, HLD, GERD, hiatal hernia, hypothyroidism and recent gastric volvulus and pancreatitis presented to the ED with abdominal pain, nausea and vomiting. abdominal pain, ? early pancreatitis vs recurrent volvulus - lipase 930, fat stranding between pancreas and stomach points to pancreatitis but pain resolved without pain medications - will admit for further observation - NPO - Lactated ringers @ 75cc/hr - GI consult - if no further vomiting in am, may resume po meds, but will hold on food Pleural effusions on CT scan - monitor for SOB, respiratory distress. Asymptomatic at present - gentle IV hydration given NPO status HTN/HLD - cont home meds hypothyroidism - cont home meds DVT PPX - defer heparin for now, expected LOS less than 48h FEN - LR @ 75cc/hr - BMP in am 02/20 - NPO except ice chips and meds for now Dispo: pt currently requires further observation for management of her emergent condition. Visit type - Emergency Visit Emergency Visit: Yes ED Registration Date: 02/19/18 Care time: The patient presented to the Emergency Department on the above date and was hospitalized for further evaluation of their emergent condition. - New Patient This patient is new to me today: Yes Date on this admission: 02/19/18 - Critical Care Critical Care patient: No Hospitalist Screening - Colonoscopy Questionnaire Colonoscopy Questionnaire: Colonoscopy Questionnaire - Patient: 50 - 75 years old and never had a screening colonoscopy: No History of colon or rectal polyps, or CA: No History of IBD, Crohn's disease or UC: No History of abdominal radiation therapy as a child: No - Relative: 1 with colon or rectal CA, or polyps at age 60 or younger: No Colon or rectal CA diagnosed at age 45 or younger: No Multiple relatives with colon or rectal CA: No - Outcome: Screening Result: Negative Screen
[2018-02-19] MEDS: LACTATED RINGERS SOLUTION 1,000 ML/1,000 ML INFUS.BAG IV SCH (06:23)
--- NOTE | 2018-02-19 08:34 | CON.GI ---
Consult Consult Specialty:: GI Reason for Consultation:: nausea vomiting abdomina pain - History of Present Illness History of Present Illness: The pt was discharged home yesterday after tolerating bland diet for lunch. At 8 PM last night developed epigastric pain with nausea and vomiting after grilled chicken and mashed potatoes meal. Was noted to have lipase in 930 in ED , Ct 1.1, normal WBC. At the time of this encounter the pt is asymptomatic and has benign abdominal exam. EGD this am was discussed with her and she agreed to proceed. - History Source History Provided By: Patient, Medical Record - Alcohol/Substance Use Hx Alcohol Use: No - Smoking History Smoking history: Never smoked Have you smoked in the past 12 months: No If you are a former smoker, when did you quit?: 1989 Home Medications - Allergies Allergies/Adverse Reactions: Allergies Allergy/AdvReac Type Severity Reaction Status Date / Time Sulfa (Sulfonamide Allergy Verified 08/21/17 15:15 Antibiotics) - Home Medications Home Medications: Ambulatory Orders Paroxetine HCl [Paxil] 30 mg PO DAILY 01/28/15 Simvastatin [Zocor -] 20 mg PO HS 01/28/15 Valsartan [Diovan] 320 mg PO DAILY 01/28/15 Pantoprazole Sodium [Protonix -] 40 mg PO BID #60 tablet.ec 02/18/18 Levothyroxine [Synthroid -] 50 mcg PO DAILY 02/19/18 Omeprazole 20 mg PO DAILY 02/19/18 Family Disease History - Family Disease History Family History: Unremarkable Review of Systems Findings/Remarks: as per HPI, H&P, ED, and recent hospitalization records. Physical Exam-GI Vital Signs: Vital Signs Temperature 97.9 F 02/19/18 05:53 Pulse Rate 89 02/19/18 05:53 Respiratory Rate 20 02/19/18 05:53 Blood Pressure 137/78 02/19/18 05:53 O2 Sat by Pulse Oximetry (%) 98 02/19/18 00:30 Constitutional: Yes: Well Nourished, No Distress, Calm Eyes: Yes: Conjunctiva Clear HENT: Yes: Atraumatic Neck: Yes: Supple Cardiovascular: Yes: Regular Rate and Rhythm Respiratory: Yes: Regular Gastrointestinal Inspection: No: Ascites, Distention ...Auscultate: Yes: Normoactive Bowel Sounds ...Palpate: Yes: Soft. No: Firm/Rigid, Guarding, Mass, Tenderness, Tenderness, Epigastium, Tenderness, Rebound Neurological: Yes: Alert, Oriented Labs: CBC, BMP 02/19/18 01:44 02/19/18 01:44 Laboratory Last Values WBC 7.7 K/mm3 (4.0-10.0) 02/19/18 01:44 RBC 3.38 M/mm3 (3.60-5.2) L 02/19/18 01:44 Hgb 10.4 GM/dL (10.7-15.3) L 02/19/18 01:44 Hct 30.7 % (32.4-45.2) L 02/19/18 01:44 MCV 90.7 fl (80-96) 02/19/18 01:44 MCH 30.7 pg (25.7-33.7) 02/19/18 01:44 MCHC 33.8 g/dl (32.0-36.0) 02/19/18 01:44 RDW 14.4 % (11.6-15.6) 02/19/18 01:44 Plt Count 340 K/MM3 (134-434) 02/19/18 01:44 MPV 7.9 fl (7.5-11.1) 02/19/18 01:44 Absolute Neuts (auto) 5.5 # 02/19/18 01:44 Neutrophils % 72.1 % (42.8-82.8) 02/19/18 01:44 Lymphocytes % 17.7 % (8-40) D 02/19/18 01:44 Monocytes % 6.8 % (3.8-10.2) 02/19/18 01:44 Eosinophils % 2.6 % (0-4.5) 02/19/18 01:44 Basophils % 0.8 % (0-2.0) 02/19/18 01:44 Nucleated RBC % 0 % (0-0) 02/19/18 01:44 Sodium 140 mmol/L (136-145) 02/19/18 01:44 Potassium 4.5 mmol/L (3.5-5.1) 02/19/18 01:44 Chloride 104 mmol/L (98-107) 02/19/18 01:44 Carbon Dioxide 33 mmol/L (21-32) H 02/19/18 01:44 Anion Gap 3 (8-16) L 02/19/18 01:44 BUN 14 mg/dL (7-18) 02/19/18 01:44 Creatinine 1.1 mg/dL (0.55-1.02) H 02/19/18 01:44 Creat Clearance w eGFR 48.29 (>60) 02/19/18 01:44 Random Glucose 89 mg/dL (74-106) 02/19/18 01:44 Calcium 9.1 mg/dL (8.5-10.1) 02/19/18 01:44 Total Bilirubin 0.2 mg/dL (0.2-1.0) 02/19/18 01:44 AST 32 U/L (15-37) 02/19/18 01:44 ALT 18 U/L (12-78) 02/19/18 01:44 Alkaline Phosphatase 58 U/L (45-117) 02/19/18 01:44 Troponin I < 0.02 ng/ml (0.00-0.05) 02/19/18 01:44 Total Protein 7.4 g/dl (6.4-8.2) 02/19/18 01:44 Albumin 3.6 g/dl (3.4-5.0) 02/19/18 01:44 Lipase 930 U/L (73-393) H 02/19/18 01:44 Imaging - Results Cat Scan: Pending Problem List - Problems (1) Elevated lipase Code(s): R74.8 - ABNORMAL LEVELS OF OTHER SERUM ENZYMES (2) Abdominal pain Code(s): R10.9 - UNSPECIFIED ABDOMINAL PAIN Qualifiers: Abdominal location: epigastric Qualified Code(s): R10.13 - Epigastric pain (3) Vomiting Code(s): R11.10 - VOMITING, UNSPECIFIED Qualifiers: Vomiting type: unspecified Vomiting Intractability: intractable Nausea presence: with nausea Qualified Code(s): R11.2 - Nausea with vomiting, unspecified (4) Epigastric pain Code(s): R10.13 - EPIGASTRIC PAIN Assessment/Plan As discussed with the patient, plan EGD this am, follow formal CT A/P report. NPO for now. Continue PPI
[2018-02-19] MEDS ORDERED: VALSARTAN 160 MG TABLET (UD) PO SCH (10:00)
[2018-02-19] MEDS ORDERED: PROPOFOL 20 ML ONE ×3 (10:08)
[2018-02-19] MEDS ORDERED: LIDOCAINE HCL/PF 2% SDV 5ML VIAL ONE (10:08)
--- NOTE | 2018-02-19 10:48 | PROC ---
Endoscopy Procedure Endoscopy procedure completed. Please see scanned procedure report. large hiatal hernia wasn oted again. A 1 cm ulcer in the fundus was noted and biopsied. The ulcer was shallow, clean-based. Biopsies taken. Otherwise normal EGD. As discussed with Sx, obtain US liver, follow CT results. PPI and carafate po. Clear liquid diet today.
--- NOTE | 2018-02-19 11:39 | PN ---
Progress Note, Physician Chief Complaint: patient back in room from endoscopy says slightly nauseaous no abdominal pain - Current Medication List Current Medications: Active Medications Atorvastatin Calcium (Lipitor -) 10 mg PO HS DAVID Lactated Ringer's (Lactated Ringers Solution) 1,000 ml in 1,000 mls @ 75 mls/ hr IV ASDIR DAVID Last Admin: 02/19/18 06:23 Dose: 75 mls/hr Levothyroxine Sodium (Synthroid -) 50 mcg PO DAILY@0700 DAVID Pantoprazole Sodium (Protonix -) 40 mg PO BID DAVID Paroxetine HCl (Paxil -) 30 mg PO DAILY DAVID Sucralfate (Carafate -) 1 gm PO QID DAVID Valsartan (Diovan -) 320 mg PO DAILY DAVID - Objective Vital Signs: Vital Signs Temperature 98.2 F 02/19/18 11:23 Pulse Rate 76 02/19/18 11:23 Respiratory Rate 20 02/19/18 11:23 Blood Pressure 152/60 02/19/18 11:23 O2 Sat by Pulse Oximetry (%) 98 02/19/18 11:23 Constitutional: Yes: Calm Cardiovascular: Yes: Regular Rate and Rhythm, S1, S2 Respiratory: Yes: CTA Bilaterally Gastrointestinal: Yes: Normal Bowel Sounds, Soft Edema: No Neurological: Yes: Alert, Oriented Labs: CBC, BMP 02/19/18 01:44 02/19/18 01:44 Problem List - Problems (1) Abdominal pain Assessment/Plan: large hiatal hernia was noted again. A 1 cm ulcer in the fundus was noted and biopsied. The ulcer was shallow, clean-based. Biopsies taken. Otherwise normal EGD. PPI and carafate po. Clear liquid diet today. surgical evaluation liver sono zofran as needed for nausea trend lipase Code(s): R10.9 - UNSPECIFIED ABDOMINAL PAIN Qualifiers: Abdominal location: epigastric Qualified Code(s): R10.13 - Epigastric pain (2) Hiatal hernia Assessment/Plan: s/p egd surgery eval Code(s): K44.9 - DIAPHRAGMATIC HERNIA WITHOUT OBSTRUCTION OR GANGRENE (3) Hypothyroid Assessment/Plan: tsh elevated on synthroid Code(s): E03.9 - HYPOTHYROIDISM, UNSPECIFIED (4) HTN (hypertension) Assessment/Plan: diovan will change to losartan Code(s): I10 - ESSENTIAL (PRIMARY) HYPERTENSION
[2018-02-19] MEDS: PARoxetine HCL 10 MG TABLET (FP) PO SCH (12:40)
[2018-02-19] MEDS: PANTOPRAZOLE 40 MG TABLET (FP) PO SCH ×2 (12:40→21:46)
[2018-02-19] MEDS: LOSARTAN POTASSIUM 50 MG TABLET (FP) PO SCH (12:40)
--- NOTE | 2018-02-19 12:46 | EKG ---
Test Reason : Blood Pressure : / mmHG Vent. Rate : 085 BPM Atrial Rate : 085 BPM P-R Int : 136 ms QRS Dur : 078 ms QT Int : 382 ms P-R-T Axes : 048 034 041 degrees QTc Int : 454 ms NORMAL SINUS RHYTHM SEPTAL INFARCT (CITED ON OR BEFORE 15-FEB-2018) ABNORMAL ECG WHEN COMPARED WITH ECG OF 15-FEB-2018 22:47, NO SIGNIFICANT CHANGE WAS FOUND Confirmed by GABRIELLA ARRIAZA, EVITA ([id number]) on 02/19/2018 12:46:00 PM Referred By: Confirmed By:EVITA QUIROZ MD
--- NOTE | 2018-02-19 15:20 | CONSULT ---
Consult Consult Specialty:: Surgery Reason for Consultation:: Epigastric pain - History of Present Illness History of Present Illness: 77 female with epigastric pain, vomiting Recently discharged + Hiatal hernia With elevated lipase again - History Source History Provided By: Patient Limitations to Obtaining History: No Limitations - Alcohol/Substance Use Hx Alcohol Use: No - Smoking History Smoking history: Never smoked Have you smoked in the past 12 months: No If you are a former smoker, when did you quit?: 1989 Home Medications - Allergies Allergies/Adverse Reactions: Allergies Allergy/AdvReac Type Severity Reaction Status Date / Time Sulfa (Sulfonamide Allergy Verified 08/21/17 15:15 Antibiotics) - Home Medications Home Medications: Ambulatory Orders Paroxetine HCl [Paxil] 30 mg PO DAILY 01/28/15 Simvastatin [Zocor -] 20 mg PO HS 01/28/15 Valsartan [Diovan] 320 mg PO DAILY 01/28/15 Pantoprazole Sodium [Protonix -] 40 mg PO BID #60 tablet.ec 02/18/18 Levothyroxine [Synthroid -] 50 mcg PO DAILY 02/19/18 Omeprazole 20 mg PO DAILY 02/19/18 Family Disease History - Family Disease History Family History: Unremarkable Review of Systems - Review of Systems Constitutional: denies: Chills, Fever Neck: reports: No Symptoms Cardiovascular: denies: Chest Pain Respiratory: denies: Cough Gastrointestinal: reports: Abdominal Pain, Vomiting Neurological: denies: Change in LOC Pain Intensity: 3 Physical Exam Vital Signs: Vital Signs Temperature 97.9 F 02/19/18 13:18 Pulse Rate 87 02/19/18 13:18 Respiratory Rate 18 02/19/18 13:18 Blood Pressure 142/85 02/19/18 13:18 O2 Sat by Pulse Oximetry (%) 98 02/19/18 11:23 Constitutional: Yes: Calm HENT: Yes: WNL Neck: Yes: WNL Cardiovascular: Yes: WNL Respiratory: Yes: Regular Gastrointestinal: Yes: Soft. No: Tenderness, Epigastrium, Tenderness, Rebound Neurological: Yes: Alert, Oriented Labs: CBC, BMP 02/19/18 01:44 02/19/18 01:44 Imaging - Results Cat Scan: Report Reviewed, Image Reviewed Problem List - Problems (1) Abdominal pain Code(s): R10.9 - UNSPECIFIED ABDOMINAL PAIN Qualifiers: Abdominal location: epigastric Qualified Code(s): R10.13 - Epigastric pain (2) Elevated lipase Code(s): R74.8 - ABNORMAL LEVELS OF OTHER SERUM ENZYMES (3) Epigastric pain Code(s): R10.13 - EPIGASTRIC PAIN Assessment/Plan Epigastric abdominal pain Elevated lipase ? pancreatitis ? Gallbladder etiology EGD showed hiatal hernia but decompressed and no twisting or volvulus Ultrasound ordered Serial lipase
[2018-02-19] MEDS: SUCRALFATE 1 GM TABLET (FP) PO SCH ×3 (15:24→21:46)
[2018-02-19] MEDS ORDERED: ACETAMINOPHEN 325 MG TABLET (FP) PO PRN (17:17)
[2018-02-19] MEDS: ATORVASTATIN CA 10 MG TABLET (FP) PO SCH (21:46)
[2018-02-20] MEDS: LACTATED RINGERS SOLUTION 1,000 ML/1,000 ML INFUS.BAG IV SCH ×2 (03:13→06:06)
[2018-02-20] MEDS: LEVOTHYROXINE NA 50 MCG TABLET (FP) PO SCH (06:05)
[2018-02-20 06:56] LABS: EOS % 6.3 % (0-4.5); HEMATOCRIT 28.6 % (32.4-45.2); HEMOGLOBIN 9.8 GM/dL (10.7-15.3); LYMPH % 27.4 % (8-40); MCH 31.2 pg (25.7-33.7); MCHC 34.4 g/dl (32.0-36.0); MEAN CELL VOLUME 90.6 fl (80-96); MEAN PLT VOLUME 7.6 fl (7.5-11.1); MONO % 7.5 % (3.8-10.2); NEUT % 57.8 % (42.8-82.8); PLATELET COUNT 310 K/MM3 (134-434); RBC 3.15 M/mm3 (3.60-5.2); RDW 14.4 % (11.6-15.6); WHITE BLOOD COUNT 5.1 K/mm3 (4.0-10.0)
[2018-02-20 07:21] LABS: CHOLESTEROL 182 mg/dL (50-200); HDL CHOLESTEROL 55 mg/dL (40-60); TRIGLYCERIDES 94 mg/dL (35-160)
[2018-02-20 07:24] LABS: ANION GAP 4 (8-16); BLOOD UREA NITROGEN 8 mg/dL (7-18); CALCIUM 8.9 mg/dL (8.5-10.1); CHLORIDE 108 mmol/L (98-107); CO2 34 mmol/L (21-32); CREATININE 1.1 mg/dL (0.55-1.02); GLUCOSE,RANDOM 75 mg/dL (74-106); PHOSPHOROUS 4.2 mg/dL (2.5-4.9); SODIUM 146 mmol/L (136-145)
[2018-02-20] MEDS: PARoxetine HCL 10 MG TABLET (FP) PO SCH (09:40)
[2018-02-20] MEDS: PANTOPRAZOLE 40 MG TABLET (FP) PO SCH ×2 (09:40→21:08)
[2018-02-20] MEDS: SUCRALFATE 1 GM TABLET (FP) PO SCH ×4 (09:40→21:08)
[2018-02-20] MEDS: LOSARTAN POTASSIUM 50 MG TABLET (FP) PO SCH (09:40)
--- NOTE | 2018-02-20 10:00 | PN ---
Progress Note, Physician Chief Complaint: AWAKE ALERT EGD REVIEWED NAD CLEAR DIET - Current Medication List Current Medications: Active Medications Acetaminophen (Tylenol -) 650 mg PO Q6H PRN PRN Reason: PAIN LEVEL 4 - 6 Last Admin: 02/19/18 17:26 Dose: 650 mg Atorvastatin Calcium (Lipitor -) 10 mg PO HS [facility] Last Admin: 02/19/18 21:46 Dose: 10 mg Lactated Ringer's (Lactated Ringers Solution) 1,000 ml in 1,000 mls @ 75 mls/ hr IV ASDIR [facility] Last Admin: 02/20/18 06:06 Dose: Not Given Levothyroxine Sodium (Synthroid -) 50 mcg PO DAILY@0700 [facility] Last Admin: 02/20/18 06:05 Dose: 50 mcg Losartan Potassium (Cozaar -) 100 mg PO DAILY [facility] Last Admin: 02/20/18 09:40 Dose: 100 mg Pantoprazole Sodium (Protonix -) 40 mg PO BID [facility] Last Admin: 02/20/18 09:40 Dose: 40 mg Paroxetine HCl (Paxil -) 30 mg PO DAILY [facility] Last Admin: 02/20/18 09:40 Dose: 30 mg Sucralfate (Carafate -) 1 gm PO QID [facility] Last Admin: 02/20/18 09:40 Dose: 1 gm - Objective Vital Signs: Vital Signs Temperature 98.2 F 02/20/18 09:34 Pulse Rate 76 02/20/18 09:34 Respiratory Rate 18 02/20/18 09:34 Blood Pressure 133/76 02/20/18 09:34 O2 Sat by Pulse Oximetry (%) 98 02/19/18 21:00 Constitutional: Yes: No Distress Eyes: Yes: WNL HENT: Yes: WNL Neck: Yes: WNL Cardiovascular: Yes: WNL Respiratory: Yes: WNL Gastrointestinal: Yes: WNL Genitourinary: Yes: WNL Musculoskeletal: Yes: WNL Extremities: Yes: WNL Edema: No Peripheral Pulses WNL: Yes Integumentary: Yes: WNL Wound/Incision: Yes: Clean/Dry Neurological: Yes: WNL ...Motor Strength: WNL Psychiatric: Yes: WNL Labs: CBC, BMP 02/20/18 06:05 02/20/18 06:05 Problem List - Problems (1) Abdominal pain Code(s): R10.9 - UNSPECIFIED ABDOMINAL PAIN Qualifiers: Abdominal location: epigastric Qualified Code(s): R10.13 - Epigastric pain (2) Elevated lipase Code(s): R74.8 - ABNORMAL LEVELS OF OTHER SERUM ENZYMES (3) Gastric ulcer Code(s): K25.9 - GASTRIC ULCER, UNSP ACUTE OR CHRONIC, W/O HEMOR OR PERF (4) Hiatal hernia Code(s): K44.9 - DIAPHRAGMATIC HERNIA WITHOUT OBSTRUCTION OR GANGRENE Assessment/Plan EGD REVIEWED F/U WITH GI SURGERY EVAL OUTPATIENT HIATAL HERNIA MONITOR TODAY ECHO 2D R/O CARDIOGENIC CAUSE
--- NOTE | 2018-02-20 14:41 | PN ---
Progress Note (short form) - Note Progress Note: NAD, restless. Tolerating liquids. US of the liver and lipase are normal. Discussed advancing diet to soft, small, frequent meals and observing. Problem List - Problems (1) Elevated lipase Code(s): R74.8 - ABNORMAL LEVELS OF OTHER SERUM ENZYMES (2) Abdominal pain Code(s): R10.9 - UNSPECIFIED ABDOMINAL PAIN Qualifiers: Abdominal location: epigastric Qualified Code(s): R10.13 - Epigastric pain (3) Vomiting Code(s): R11.10 - VOMITING, UNSPECIFIED Qualifiers: Vomiting type: unspecified Vomiting Intractability: intractable Nausea presence: with nausea Qualified Code(s): R11.2 - Nausea with vomiting, unspecified (4) Epigastric pain Code(s): R10.13 - EPIGASTRIC PAIN
--- NOTE | 2018-02-20 15:42 | ECHO ---
Name: ZEYNEP VIGILINE Exam:Adult Echocardiogram Study Date: 02/20/2018 01:39 PM Age: 77 yrs Reason For Study: chest pain Height: 62 in Weight: 137 lb BSA: 1.6 m2 MMode/2D Measurements & Calculations IVSd: 0.81 cm Ao root diam: 2.2 cm LVIDd: 4.7 cm LVIDs: 2.5 cm LVPWd: 0.74 cm LVPWs: 1.3 cm EDV(Teich): 100.7 ml ESV(Teich): 23.0 ml LAV (MOD-bp): 45.0 ml Doppler Measurements & Calculations MV E max claude: 81.7 cm/sec Ao V2 max: 142.2 cm/sec MV A max claude: 109.1 cm/sec Ao max P.1 mmHg MV E/A: 0.75 MV dec time: 0.19 sec LV V1 max P.1 mmHg TR max claude: 271.0 cm/sec LV V1 max: 100.9 cm/sec TR max P.5 mmHg PA V2 max: 112.2 cm/sec Med Peak E' Claude: 5.2 cm/sec PA max P.0 mmHg Med E/e': 15.9 Lat Peak E' Claude: 7.7 cm/sec Lat E/e': 10.6 Left Ventricle Left ventricular systolic function is normal. The transmitral spectral Doppler flow pattern is sugges tive of impaired LV relaxation. Right Ventricle The right ventricle is normal in size and function. Atria Borderline left atrial enlargement. A echodensity is seen in the right atrium which may represent a c atheter tip. Cannot rule out mass or thrombus. Clinical correlation is advised. Mitral Valve The mitral valve is grossly normal. There is no mitral valve stenosis. There is mild mitral regurgita tion. Tricuspid Valve The tricuspid valve is normal in structure and function. There is mild tricuspid regurgitation. Aortic Valve The aortic valve opens well. No hemodynamically significant valvular aortic stenosis. No aortic regur gitation is present. Pulmonic Valve The pulmonic valve is not well seen, but is grossly normal. There is no pulmonic valvular stenosis. T here is no pulmonic valvular regurgitation. Great Vessels The aortic root is normal size. Pericardium/Pleura Trivial pericardial effusion not hemodynamically significant. Interpretation Summary Left ventricular systolic function is normal. The right ventricle is normal in size and function. A echodensity is seen in the right atrium which may represent a catheter tip. Cannot rule out mass or thrombus. Clinical correlation is advised. There is mild mitral regurgitation. There is mild tricuspid regurgitation. The aortic valve opens well. Trivial pericardial effusion not hemodynamically significant MD Sean Albarran 02/20/2018 03:42 PM
--- NOTE | 2018-02-20 16:14 | PATH ---
Surgical Pathology Report Patient Name: JHONNY VIGIL [facility]. Rec. #: [id number] /Age/Gender: 1940 (Age: 77) / F Account: [id number] Location: [address] [place] [address]/[facility] Taken: 02/19/2018 Received: 02/19/2018 Reported: 02/20/2018 Physicians: Angel Kraft M.D. Specimen(s) Received BX OF FUNDUS ULCER Clinical History Nausea, vomiting Postoperative diagnosis: Large hiatal hernia, gastric fundal ulcer Final Diagnosis FUNDUS ULCER, BIOPSY: GASTRIC MUCOSA WITH MILD CHRONIC GASTRITIS. IMMUNOSTAIN IS NEGATIVE FOR H. PYLORI ORGANISMS. Electronically Signed Ab Griffin M.D. Gross Description Received in formalin, labeled "biopsy gastric fundal ulcer" are 3 shipley, irregular portions of soft tissue ranging from 0.3-0.4 cm. in greatest dimension. The specimens are submitted in toto in one cassette. /02/19/201802/19/2018
[2018-02-20] MEDS ORDERED: PT OWN MED DRAWER 7, Y5N ONE (20:04)
[2018-02-20] MEDS: ATORVASTATIN CA 10 MG TABLET (FP) PO SCH (21:08)
[2018-02-21] MEDS: LEVOTHYROXINE NA 50 MCG TABLET (FP) PO SCH (06:30)
[2018-02-21] MEDS: LOSARTAN POTASSIUM 50 MG TABLET (FP) PO SCH (09:24)
[2018-02-21] MEDS: PARoxetine HCL 10 MG TABLET (FP) PO SCH (09:24)
[2018-02-21] MEDS: SUCRALFATE 1 GM TABLET (FP) PO SCH ×4 (09:24→21:44)
[2018-02-21] MEDS: PANTOPRAZOLE 40 MG TABLET (FP) PO SCH ×2 (09:24→21:44)
--- NOTE | 2018-02-21 13:09 | CON.CARD ---
Consult Consult Specialty:: Cardiology Referred by:: Dr Arciniega Reason for Consultation:: RA mass - History of Present Illness Chief Complaint: abdominal pain, vomiting History of Present Illness: She is a 77 year old female, with a past medical history of hiatal hernia complicated by gastric volvulus, asthma, hypothyroidism, hypertension, hyperlipidemia, who was admitted with epigastric pain, nausea, and vomiting twice within days. She was having burning chest pain and underwent an echo showing a question of an RA mass. She is now tolerating clear liquids. No chest pain, sob, orthopnea, pnd or edema. Exercise tolerance is good. Echo 02/20/18 nlef, mild MR/TR, echodense RA mass thrombus vs catheter tip. - History Source History Provided By: Patient, Medical Record Limitations to Obtaining History: No Limitations - Past Medical History Cardio/Vascular: Yes: HTN, Hyperlipdemia Gastrointestinal: Yes: GERD, Hiatal Hernia - Alcohol/Substance Use Hx Alcohol Use: No - Smoking History Smoking history: Never smoked Have you smoked in the past 12 months: No If you are a former smoker, when did you quit?: 1989 Home Medications - Allergies Allergies/Adverse Reactions: Allergies Allergy/AdvReac Type Severity Reaction Status Date / Time Sulfa (Sulfonamide Allergy Verified 08/21/17 15:15 Antibiotics) - Home Medications Home Medications: Ambulatory Orders Paroxetine HCl [Paxil] 30 mg PO DAILY 01/28/15 Simvastatin [Zocor -] 20 mg PO HS 01/28/15 Valsartan [Diovan] 320 mg PO DAILY 01/28/15 Pantoprazole Sodium [Protonix -] 40 mg PO BID #60 tablet.ec 02/18/18 Levothyroxine [Synthroid -] 50 mcg PO DAILY 02/19/18 Omeprazole 20 mg PO DAILY 02/19/18 Vital Signs: Vital Signs Temperature 97.9 F 02/21/18 10:00 Pulse Rate 67 02/21/18 10:00 Respiratory Rate 18 02/21/18 10:00 Blood Pressure 149/75 02/21/18 10:00 O2 Sat by Pulse Oximetry (%) 94 L 02/21/18 10:00 Constitutional: Yes: No Distress, Calm Eyes: Yes: Conjunctiva Clear, EOM Intact HENT: Yes: Normocephalic Neck: Yes: Trachea Midline Respiratory: Yes: CTA Bilaterally Gastrointestinal: Yes: Normal Bowel Sounds Renal/: Yes: WNL Cardiovascular: Yes: Regular Rate and Rhythm, Other (bowel sounds in the chest.) JVD: No Carotid Bruit: No PMI: Non-Displaced Heart Sounds: Yes: S1, S2 Musculoskeletal: Yes: WNL Extremities: Yes: WNL Edema: No Peripheral Pulses WNL: Yes - Other Data Labs, Other Data: CBC, BMP 02/20/18 06:05 02/20/18 06:05 Imaging - Results Chest X-ray: Report Reviewed EKG: Report Reviewed (nsr old septal MD no change.) Other: Report Reviewed (ct no RA thrombus.) Problem List - Problems (1) Right atrial mass Assessment/Plan: Not seen on CT scan with contrast, but limited. Would see as outpatient and get cardiac MRI if suspicion remains high. Will review images. She may need esophageal surgery. There are no cardiac contraindications to surgery. Code(s): I51.9 - HEART DISEASE, UNSPECIFIED
--- NOTE | 2018-02-21 14:24 | PN ---
Progress Note, Physician Chief Complaint: AWAKE ALERT DENIES CHEST PAIN +NAUSEA - Current Medication List Current Medications: Active Medications Acetaminophen (Tylenol -) 650 mg PO Q6H PRN PRN Reason: PAIN LEVEL 4 - 6 Last Admin: 02/19/18 17:26 Dose: 650 mg Atorvastatin Calcium (Lipitor -) 10 mg PO HS [facility] Last Admin: 02/20/18 21:08 Dose: 10 mg Levothyroxine Sodium (Synthroid -) 50 mcg PO DAILY@0700 [facility] Last Admin: 02/21/18 06:30 Dose: 50 mcg Losartan Potassium (Cozaar -) 100 mg PO DAILY [facility] Last Admin: 02/21/18 09:24 Dose: 100 mg Pantoprazole Sodium (Protonix -) 40 mg PO BID [facility] Last Admin: 02/21/18 09:24 Dose: 40 mg Paroxetine HCl (Paxil -) 30 mg PO DAILY [facility] Last Admin: 02/21/18 09:24 Dose: 30 mg Sucralfate (Carafate -) 1 gm PO QID [facility] Last Admin: 02/21/18 13:27 Dose: 1 gm - Objective Vital Signs: Vital Signs Temperature 97.9 F 02/21/18 10:00 Pulse Rate 67 02/21/18 10:00 Respiratory Rate 18 02/21/18 10:00 Blood Pressure 149/75 02/21/18 10:00 O2 Sat by Pulse Oximetry (%) 94 L 02/21/18 10:00 Constitutional: Yes: Mild Distress Eyes: Yes: WNL HENT: Yes: WNL Neck: Yes: WNL Cardiovascular: Yes: WNL Respiratory: Yes: WNL Gastrointestinal: Yes: Tenderness Genitourinary: Yes: WNL Musculoskeletal: Yes: WNL Extremities: Yes: WNL Edema: No Peripheral Pulses WNL: Yes Integumentary: Yes: WNL Wound/Incision: Yes: Clean/Dry Neurological: Yes: WNL ...Motor Strength: WNL Psychiatric: Yes: WNL Labs: CBC, BMP 02/20/18 06:05 02/20/18 06:05 Problem List - Problems (1) Abdominal pain Code(s): R10.9 - UNSPECIFIED ABDOMINAL PAIN Qualifiers: Abdominal location: epigastric Qualified Code(s): R10.13 - Epigastric pain (2) Elevated lipase Code(s): R74.8 - ABNORMAL LEVELS OF OTHER SERUM ENZYMES (3) Gastric ulcer Code(s): K25.9 - GASTRIC ULCER, UNSP ACUTE OR CHRONIC, W/O HEMOR OR PERF (4) Hiatal hernia Code(s): K44.9 - DIAPHRAGMATIC HERNIA WITHOUT OBSTRUCTION OR GANGRENE Assessment/Plan CT CHEST NO IDENTIFIABLE MASS OR THROMBUS TO RIGHT [facility] CONSULT APPRECIATED D/W DR NUÑEZ FROM CARDIOLOGY WHO SPOKE WITH DR JE MARR AT [facility] WHO CAN REPAIR HER HIATAL HERNIA WITH A SB FUNDOSCOPY WILL EITHER TRANSFER DIRECTLY TO [facility] OR GO OUT PATIENT ON FRIDAY PPI CONTINUED WITH CARAFATE SOFT DIET, SMALL 2-4 OZ PER SERVING WITH FREQUENT MEALS OOB TO CHAIR
[2018-02-21] MEDS ORDERED: PT OWN MED DRAWER 7, Y5N ONE ×2 (16:43→20:42)
[2018-02-21] MEDS: ATORVASTATIN CA 10 MG TABLET (FP) PO SCH (21:44)
[2018-02-22] MEDS: LEVOTHYROXINE NA 50 MCG TABLET (FP) PO SCH (06:26)
[2018-02-22 07:16] LABS: HEMATOCRIT 30.5 % (32.4-45.2); HEMOGLOBIN 10.4 GM/dL (10.7-15.3); MCH 30.9 pg (25.7-33.7); MEAN CELL VOLUME 90.9 fl (80-96); MEAN PLT VOLUME 8.5 fl (7.5-11.1); PLATELET COUNT 351 K/MM3 (134-434); RBC 3.36 M/mm3 (3.60-5.2); RDW 14.5 % (11.6-15.6); WHITE BLOOD COUNT 6.3 K/mm3 (4.0-10.0)
[2018-02-22 07:17] LABS: ALBUMIN 3.4 g/dl (3.4-5.0); ANION GAP 5 (8-16); BLOOD UREA NITROGEN 15 mg/dL (7-18); CALCIUM 9.3 mg/dL (8.5-10.1); CHLORIDE 102 mmol/L (98-107); CO2 35 mmol/L (21-32); CREATININE 1.3 mg/dL (0.55-1.02); GLUCOSE,RANDOM 82 mg/dL (74-106); POTASSIUM 4.4 mmol/L (3.5-5.1); SGOT/AST 26 U/L (15-37); SGPT/ALT 21 U/L (12-78); SODIUM 142 mmol/L (136-145)
[2018-02-22 07:20] LABS: ALK PHOS 60 U/L (45-117); BILIRUBIN,TOTAL 0.2 mg/dL (0.2-1.0); TOT PROT 6.9 g/dl (6.4-8.2)
[2018-02-22] MEDS: LOSARTAN POTASSIUM 50 MG TABLET (FP) PO SCH (09:18)
[2018-02-22] MEDS: SUCRALFATE 1 GM TABLET (FP) PO SCH (09:18)
[2018-02-22] MEDS: PARoxetine HCL 10 MG TABLET (FP) PO SCH (09:18)
[2018-02-22] MEDS: PANTOPRAZOLE 40 MG TABLET (FP) PO SCH (09:18)
--- NOTE | 2018-02-22 12:04 | DS ---
Physical Examination Vital Signs: Vital Signs Temperature 98.1 F 02/22/18 10:00 Pulse Rate 81 02/22/18 10:00 Respiratory Rate 18 02/22/18 10:00 Blood Pressure 156/82 02/22/18 10:00 O2 Sat by Pulse Oximetry (%) 94 L 02/21/18 22:00 Constitutional: Yes: No Distress Eyes: Yes: WNL HENT: Yes: WNL Neck: Yes: WNL Cardiovascular: Yes: WNL Respiratory: Yes: WNL Gastrointestinal: Yes: WNL Renal/: Yes: WNL Musculoskeletal: Yes: WNL Extremities: Yes: WNL Edema: No Peripheral Pulses WNL: Yes Integumentary: Yes: WNL Wound/Incision: Yes: Clean/Dry Neurological: Yes: WNL ...Motor Strength: WNL Psychiatric: Yes: WNL Labs: CBC, BMP 02/22/18 06:05 02/22/18 06:05 Discharge Summary Reason For Visit: ABDOMINAL PAIN/VOMITING/EPIGASTRIC PAIN Current Active Problems Abdominal pain (Acute) Elevated lipase (Acute) HTN (hypertension) (Acute) Hypothyroid (Acute) Right atrial mass (Acute) Vomiting (Acute) GASTRIC ULCER Procedures: Principal: EGD/CT CHEST Hospital Course: ADMITTED ABD PAIN EGD SHOWED ULCER, ECHO SHOWED RIGHT ATRIAL MASS, CT CHEST NO ACUTE CHANGES OR THROMBUS SEEN ON HEART. CAN F/U OUTPATIENT FOR SB FUNDOSCOPY WITH STEPHAN FARIA Condition: Guarded - Instructions Diet, Activity, Other Instructions: SEE DR JE FARIA February FOR HIATAL HERNIA REPAIR [phone] SMALL MEALS WITH 2 MINUTES BETWEEN EACH BITE Referrals: Latoya Wilson MD [Primary Care Provider] - Disposition: HOME - Home Medications Comprehensive Discharge Medication List: Ambulatory Orders Paroxetine HCl [Paxil] 30 mg PO DAILY 01/28/15 Simvastatin [Zocor -] 20 mg PO HS 01/28/15 Valsartan [Diovan] 320 mg PO DAILY 01/28/15 Pantoprazole Sodium [Protonix -] 40 mg PO BID #60 tablet.ec 02/18/18 Levothyroxine [Synthroid -] 50 mcg PO DAILY 02/19/18 Omeprazole 20 mg PO DAILY 02/19/18 Sucralfate [Carafate -] 1 gm PO QID #40 tablet 02/22/18
--- NOTE | 2018-02-22 13:23 | PN ---
Progress Note, Physician History of Present Illness: She is a 77 year old female, with a past medical history of hiatal hernia complicated by gastric volvulus, asthma, hypothyroidism, hypertension, hyperlipidemia, who was admitted with epigastric pain, nausea, and vomiting twice within days. She was having burning chest pain and underwent an echo showing a question of an RA mass. She is now tolerating clear liquids. No chest pain, sob, orthopnea, pnd or edema. Exercise tolerance is good. Echo 02/20/18 nlef, mild MR/TR, echodense RA mass thrombus vs catheter tip. Tolerating food today. Going home to follow with Dr Mikie Cheema at [facility]. - Current Medication List Current Medications: Active Medications Acetaminophen (Tylenol -) 650 mg PO Q6H PRN PRN Reason: PAIN LEVEL 4 - 6 Last Admin: 02/19/18 17:26 Dose: 650 mg Atorvastatin Calcium (Lipitor -) 10 mg PO HS [facility] Last Admin: 02/21/18 21:44 Dose: 10 mg Levothyroxine Sodium (Synthroid -) 50 mcg PO DAILY@0700 [facility] Last Admin: 02/22/18 06:26 Dose: 50 mcg Losartan Potassium (Cozaar -) 100 mg PO DAILY [facility] Last Admin: 02/22/18 09:18 Dose: 100 mg Pantoprazole Sodium (Protonix -) 40 mg PO BID [facility] Last Admin: 02/22/18 09:18 Dose: 40 mg Paroxetine HCl (Paxil -) 30 mg PO DAILY [facility] Last Admin: 02/22/18 09:18 Dose: 30 mg Sucralfate (Carafate -) 1 gm PO QID [facility] Last Admin: 02/22/18 09:18 Dose: 1 gm - Objective Vital Signs: Vital Signs Temperature 98.1 F 02/22/18 10:00 Pulse Rate 81 02/22/18 10:00 Respiratory Rate 18 02/22/18 10:00 Blood Pressure 156/82 02/22/18 10:00 O2 Sat by Pulse Oximetry (%) 94 L 02/21/18 22:00 Constitutional: Yes: No Distress, Calm Eyes: Yes: Conjunctiva Clear, EOM Intact HENT: Yes: Normocephalic Neck: Yes: Supple, Trachea Midline Cardiovascular: Yes: Regular Rate and Rhythm Respiratory: Yes: CTA Bilaterally Gastrointestinal: Yes: Normal Bowel Sounds Extremities: Yes: WNL Labs: CBC, BMP 02/22/18 06:05 02/22/18 06:05 Problem List - Problems (1) Right atrial mass Assessment/Plan: Not seen on CT scan with contrast, but limited. I have reviewed the images. 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 She may need esophageal surgery. There are no cardiac contraindications to surgery. Code(s): I51.9 - HEART DISEASE, UNSPECIFIED
[2018-02-22 14:05] VITALS: BP 140/65; PULSE 75; TEMP 98.5
== END 2018-02-22 14:25 | disposition home or self-care (01) ==
LOC: JER 23:59 → JERBED 02-19 03:10 → UNDOADMOB 02-19 03:21 → J5S 02-19 05:43 → J4S 02-20 17:30
PROVIDERS: ADMIT Internal Medicine; ATTEND Family Medicine
PROC: 3E033GC Introduction of Other Therapeutic Substance into Peripheral Vein, Percutaneous Approach (ICD-10-PCS; 2018-02-19)
PROC: 3E0337Z Introduction of Electrolytic and Water Balance Substance into Peripheral Vein, Percutaneous Approach (ICD-10-PCS; 2018-02-19)
PROC: 0DB68ZX Excision of Stomach, Via Natural or Artificial Opening Endoscopic, Diagnostic (ICD-10-PCS; principal; 2018-02-19 11:45)
DX: R10.13 Epigastric pain (principal); K25.9 Gastric ulcer, unspecified as acute or chronic, without hemorrhage or perforation; K29.50 Unspecified chronic gastritis without bleeding; R74.8 Abnormal levels of other serum enzymes; R11.2 Nausea with vomiting, unspecified; I10 Essential (primary) hypertension; E78.5 Hyperlipidemia, unspecified; E03.9 Hypothyroidism, unspecified; J45.909 Unspecified asthma, uncomplicated; J90 Pleural effusion, not elsewhere classified; K44.9 Diaphragmatic hernia without obstruction or gangrene; I51.9 Heart disease, unspecified
CPT/HCPCS: 36415; 71270-TC; 74177-TC; 76700-TC; 80048; 80053; 80061; 83690; 83721; 83735; 84100; 84443; 84484; 85025; 85027; 88305-TC; 88342-TC; 93005; 93010; 93306-TC; 96361; 96365; 96375; 99283-25; G0378; J7030

== ENCOUNTER 2019-01-14 13:32 | Emergency (ER) | payer OTHER ==
[2019-01-14 13:42] VITALS: PULSE 88; BMI 24.7
--- NOTE | 2019-01-14 13:42 | PDOC ---
Rapid Medical Evaluation Chief Complaint: Injury Time Seen by Provider: 01/14/19 13:36 Medical Evaluation: Allergies Allergy/AdvReac Type Severity Reaction Status Date / Time Sulfa (Sulfonamide Allergy Verified 08/21/17 15:15 Antibiotics) 01/14/19 13:37 I have performed a brief in-person evaluation of this patient. The patient presents with a chief complaint of: fall with head injury , + LOC seconds, uncertain as to cause of fall Pertinent physical exam findings: + stellate lac to right brow , I have ordered the following: CT head , EKG The patient will proceed to the ED for further evaluation. 01/14/19 13:45 Discharge Disposition - Diagnosis Head injury Qualifiers: Encounter type: initial encounter Qualified Code(s): S09.90XA - Unspecified injury of head, initial encounter - Referrals - Patient Instructions - Post Discharge Activity
--- NOTE | 2019-01-14 14:01 | PDOC ---
History of Present Illness - General Chief Complaint: Injury Stated Complaint: FALL Time Seen by Provider: 01/14/19 13:36 - History of Present Illness Initial Comments: 01/14/19 15:04 The patient is a 78 year old female with a history of HTN, HLD, Hypothyroid who presents for evaluation following a fall. The patient is accompanied by family who assist in providing the history. They report that the patient was walking on an overpass with loose gravel when she slipped and fell striking her head on the ground sustaining a laceration to her right eyebrow prompting her presentation to the ED for further evaluation. She reports LOC of a few seconds before returning to baseline. She was ambulatory immediately after the event. She otherwise denies headache, fevers, chills, SOB, chest pain, nausea, vomiting, abdominal pain, numbness, tingling, weakness, or other injuries. Past History - Past Medical History Allergies/Adverse Reactions: Allergies Allergy/AdvReac Type Severity Reaction Status Date / Time Sulfa (Sulfonamide Allergy Verified 08/21/17 15:15 Antibiotics) Home Medications: Ambulatory Orders Paroxetine HCl [Paxil] 30 mg PO DAILY 01/28/15 Simvastatin [Zocor -] 20 mg PO HS 01/28/15 Valsartan [Diovan] 320 mg PO DAILY 01/28/15 Pantoprazole Sodium [Protonix -] 40 mg PO BID #60 tablet.ec 02/18/18 Levothyroxine [Synthroid -] 50 mcg PO DAILY 02/19/18 Omeprazole 20 mg PO DAILY 02/19/18 Sucralfate [Carafate -] 1 gm PO QID #40 tablet 02/22/18 Asthma: Yes COPD: No DVT: No GI Disorders: Yes (gastric ulcer, hiatal hernia) HTN: Yes Hypercholesterolemia: Yes Thyroid Disease: Yes (hypo) - Immunization History Immunization Up to Date: Yes - Suicide/Smoking/Psychosocial Hx Smoking History: Never smoked Have you smoked in the past 12 months: No If you are a former smoker, when did you quit?: 1989 Information on smoking cessation initiated: No Hx Alcohol Use: No Drug/Substance Use Hx: No Substance Use Type: None, Alcohol Hx Substance Use Treatment: No Review of Systems - Review of Systems Comments:: 01/14/19 15:10 Constitutional: No fevers, chills, fatigue, malaise HEENT: Laceration to the right eyebrow. No Rhinorrhea, nasal congestion, visual changes Cardiovascular: No chest pain, syncope, palpitations, lightheadedness Respiratory: No Cough, SOB, Hemoptysis, Gastrointestinal: No Abdominal pain, Nausea, Vomiting, Constipation, Diarrhea, Melena Genitourinary: No Dysuria, Frequency, Urgency, Hesitancy, Hematuria, Flank pain Musculoskeletal: No Myalgia, arthralgia Skin: No rashes, itching, bruising, pallor Neurologic: No Headache, Dizziness, Numbness, Weakness, or Tingling Psychiatric: No Hallucinations. No SI or HI *Physical Exam - Vital Signs Last Vital Signs Temp Pulse Resp BP Pulse Ox 98.3 F 88 17 168/80 96 01/14/19 13:39 01/14/19 13:39 01/14/19 13:39 01/14/19 13:39 01/14/19 13:39 - Physical Exam Comments: 01/14/19 15:10 General Appearance: Nourished. No Apparent Distress HEENT: EOMI, SHARI. 3 cm strellate laceration just superior to the right eyebrow. No Pharyngeal Erythema, Tonsillar Exudate, Tonsillar Erythema Neck: No Cervical Lymphadenopathy or C-spine Tenderness. Full ROM Respiratory/Chest: Lungs Clear, Normal Breath Sounds. No Crackles, Rales, Rhonchi, Wheezing Cardiovascular: Regular Rhythm, Regular Rate. No Murmur, Gallops, Rubs Gastrointestinal/Abdominal: Normal Bowel Sounds, Soft. No Guarding, Rebound, Tenderness Musculoskeletal: No CVA Tenderness Extremity: Normal Capillary Refill Integumentary: Normal Color, Dry, Warm Neurologic: dobie man II-XII NML intact, Fully Oriented, Alert, Normal Mood/Affect, Normal Response, Motor Strength 5/5. Procedures - Laceration/Wound Repair Right Upper Face Wound Length: 2.6 to 5.0 cm Wound Explored: clean, no foreign body present Wound's Depth, Shape: superficial, stellate Irrigated w/ Saline: Yes Anesthesia: 1% Lidocaine Amount of Anesthetic (ccs): 4 Wound Repaired With: Sutures Suture Size/Type: 4:0, nylon Number of Sutures: 7 Layer Closure: Yes Sterile Dressing Applied: Yes Heart Score/ECG Review #1 ECG reviewed & interpreted by me at: 15:13 01/14/19 15:13 HR 84 NJ 142 QRS 76 QTc 453 Normal sinus Rhythm No Acute ST Changes. ED Treatment Course - RADIOLOGY Radiology Studies Ordered: Category Date Time Status CERVICAL SPINE CT W/O CONTR [CT] Stat CT Scan 01/14/19 14:00 Ordered Medical Decision Making - Medical Decision Making 01/14/19 15:11 The patient is a 78 year old female with a history of HTN, HLD, Hypothyroid who presents for evaluation following a fall. Given the patient's history and physical exam, we will obtain a head and cervical CT and ekg to evaluate further. The patient's laceration was repaired with 7 4-0 nylon sutures after irrigation. We will update the patient's tetanus and continue to monitor and reassess while here in the ED. 01/14/19 16:[address] CT did not demonstrate any acute process as read by our radiologist. We are comfortable discharging the patient home in stable condition with follow up for suture removal in 5-7 days. Patient and family made aware of impression and plan, return precautions discussed including but not limited to worsening pain or symptoms, fevers, or signs of infection, chest pain, respiratory distress, inability to tolerate oral intake, dehydration, syncope, or neurologic changes. The patient is to follow up with PMD as recommended within 1 week, follow up information provided and the patient will call for an appointment. The patient is to take medications as instructed for duration of time and continue with supportive care, avoid triggers and precipitants. Patient is safe for outpatient follow-up. *DC/Admit/Observation/Transfer Diagnosis at time of Disposition: Laceration Head injury Qualifiers: Encounter type: initial encounter Qualified Code(s): S09.90XA - Unspecified injury of head, initial encounter - Discharge Dispostion Disposition: HOME Condition at time of disposition: Stable - Referrals Referrals: ON STAFF,NOT [Primary Care Provider] - - Patient Instructions Printed Discharge Instructions: DI for Laceration Repair Additional Instructions: 1) Please follow-up with your primary care doctor in the next 2-3 days. Please call tomorrow to schedule a follow up appointment. If you cannot follow up with your doctor within 1 week please return to the Emergency Department for any urgent issues. 2) Your imaging results were normal here in the ER. Your laceration was repaired with 7 sutures here in the ED. The sutures will need to be removed in 5-7 days and you may return to the ER or go to your PCP to have them removed. Please keep the wound dry for 24 hours after which you may gently cleanse the wound with soap and water. You may use a light coating of bacitracin daily for 3-4 days on the wound. Please keep the wound clean. 3) If you have any worsening of symptoms or any other concerns please return to the ER immediately. Return if worsening symptoms including fevers, headache, vomiting, visual or hearing disturbances, abdominal pain, chest pain, shortness of breath, syncope, dehydration, inability to take things by mouth/vomiting, altered mental status, or worsening concerning symptoms. 4) Please continue taking your home medications as directed. Side effects may include upset stomach, abdominal pain, vomiting, or diarrhea. - Post Discharge Activity
[2019-01-14] MEDS ORDERED: DIPHTH,PERTUSS(ACELL),TET 0.5 ML DISP.SYRIN IM ONE ×2 (14:08→14:21)
--- NOTE | 2019-01-14 14:46 | PDOC ---
Documentation entered by Sherita Sullivan SCRIBE, acting as scribe for Mary Ann Gates DO. Mary Ann Gates DO: This documentation has been prepared by the Laurie vernon Adrianna, SCRIBE, under my direction and personally reviewed by me in its entirety. I confirm that the documentation accurately reflects all work, treatment, procedures, and medical decision making performed by me. Attending Attestation - Resident Resident Name: Alberto Guzmán - ED Attending Attestation I have performed the following: I have examined & evaluated the patient, The case was reviewed & discussed with the resident, I agree w/resident's findings & plan, Exceptions are as noted - HPI HPI: The patient is a 78 year old female, with a significant PMH of gastric volvulus , asthma, hypothyroid, hypertension, hyperlipidemia, UTI, and hiatal hernia, who presents to the ED s/p fall. Patient notes she was leaving her doctors office, when she tripped on the side walk onto gravel. She states she fell onto her outstretched right hand and endorses hitting her head. Patient states she may have lost consciousness for a second or two. She presents with a laceration to her right eyebrow, and endorses mild right wrist pain. Patient denies having a tetanus within the past 5 years. The patient denies chest pain, palpitations, shortness of breath. Denies neck pain, changes in vision, blurred vision. Allergies: Sulfa Surgical History: Hiatal hernia repair Social History: None reported PCP: RAMONA 01/14/19 15:00 - Physicial Exam PE: Constitutional: Awake, alert, oriented. No acute distress. Speaking in full sentences. Head: +3cm stellate laceration to right eyebrow. Normocephalic. Eyes: PERRL. EOMI. Conjunctivae are not pale. ENT: Mucous membranes are moist and intact. Neck: No tenderness to palpation. Full ROM. Cardiovascular: Regular rate. Regular rhythm. S1, S2 regular. Distal pulses are 2+ and symmetric. Pulmonary/Chest: No evidence of respiratory distress. Clear to auscultation bilaterally No wheezing, rales or rhonchi. Abdominal: Soft and non-distended. There is no tenderness. No rebound, guarding or rigidity. No organomegaly. No palpable masses. Good bowel sounds. Back: No t-spine tenderness. No L-spine tenderness. No CVA tenderness. Musculoskeletal: No edema. No cyanosis. No clubbing. No right wrist bony tenderness with full flexion, extension, pronation supination. Full range of motion in all extremities. No calf tenderness. Radial/pedal pulses are intact and 2+ bilaterally Skin: Skin is warm and dry. No petechiae. No purpura. Neurological: Alert and oriented to person, place, and time. Cranial nerves II -XII are grossly intact. Normal speech. Strength is grossly symmetric. No sensory deficits. Psychiatric: Good eye contact. Normal interaction, affect and behavior. 01/14/19 14:54 - Medical Decision Making 01/14/19 14:32 I, Dr. Mary Ann Gates, DO, attest that this document has been prepared under my direction and personally reviewed by me in its entirety. I further attest, that it accurately reflects all work, treatment, procedures and medical decision -making performed by me. 01/14/19 14:32 a/p: 78yo female presents ambulatory with her family for evaluation of a closed head injury, r forehead lac, and mechanical fall -pt was walking home from her PMD appointment when she tripped on the gravel and fell landing on her R wrist (outsretched) and hit her R forehead -pt with a bandaid covering a 3cm stellate laceration to the R forehead - no active bleeding -pt denies neck or back pain -no cp/sob/palpitations -no blood thinners or antiplts -pt neuro intact -will obtain head and c spine ct -tetanus will be updated -will need lac repair 01/14/19 14:43 lac being repaired by the resident Heart Score/ECG Review - ECG Intrepretation Comment:: 01/14/19 14:44 sinus at 84, nl axis, nl interval, no acute st/t wave findings, q waves septally which are age indeterminate
[2019-01-14 16:27] VITALS: BP 133/64; TEMP 98.5
--- NOTE | 2019-01-15 11:58 | EKG ---
Test Reason : Blood Pressure : / mmHG Vent. Rate : 084 BPM Atrial Rate : 084 BPM P-R Int : 142 ms QRS Dur : 076 ms QT Int : 384 ms P-R-T Axes : 037 007 027 degrees QTc Int : 453 ms NORMAL SINUS RHYTHM SEPTAL INFARCT (CITED ON OR BEFORE 15-FEB-2018) ABNORMAL ECG WHEN COMPARED WITH ECG OF 19-FEB-2018 02:47, NONSPECIFIC T WAVE ABNORMALITY NO LONGER EVIDENT IN LATERAL LEADS Confirmed by IRLANDA LEBLANC MD ([id number]) on 01/15/2019 11:57:51 AM Referred By: Confirmed By:IRLANDA LEBLANC MD
== END 2019-01-14 16:27 | disposition home or self-care (01) ==
LOC: JER 13:32
PROC: 3E0234Z Introduction of Serum, Toxoid and Vaccine into Muscle, Percutaneous Approach (ICD-10-PCS; principal; 2019-01-14)
PROC: 0HQ1XZZ Repair Face Skin, External Approach (ICD-10-PCS; 2019-01-14)
DX: S01.111A Laceration without foreign body of right eyelid and periocular area, initial encounter (principal); W18.39XA Other fall on same level, initial encounter; Y93.89 Activity, other specified; Y92.89 Other specified places as the place of occurrence of the external cause; Y99.8 Other external cause status; I10 Essential (primary) hypertension; E78.5 Hyperlipidemia, unspecified; E03.9 Hypothyroidism, unspecified
CPT/HCPCS: 70450-TC; 72125-TC; 90715; 93005; 93010; 99282-25

== ENCOUNTER 2022-08-16 19:32 | Observation (INO) | payer OTHER ==
[2022-08-16] MEDS ORDERED: MECLIZINE HCL 25 MG TABLET (FP) PO ONE (20:04)
[2022-08-16] MEDS ORDERED: MECLIZINE HCL 25 MG TABLET (FP) ONE (20:06)
[2022-08-16 20:21] LABS: HEMATOCRIT 39.2 % (32.4-45.2); HEMOGLOBIN 12.9 GM/dL (10.7-15.3); MEAN PLT VOLUME 8.1 fl (7.5-11.1); PLATELET COUNT 427 10^3/uL (134-434); RBC 4.04 M/mm3 (3.60-5.2); RDW 12.8 % (11.6-15.6); WHITE BLOOD COUNT 9.6 K/mm3 (4.0-10.0)
[2022-08-16 20:47] LABS: ALBUMIN 4.4 g/dl (3.4-5.0); BLOOD UREA NITROGEN 35.4 mg/dL (7-18); CALCIUM 9.9 mg/dL (8.5-10.1); MAGNESIUM 2.2 mg/dL (1.8-2.4)
[2022-08-16 20:49] LABS: PHOSPHOROUS 3.6 mg/dL (2.5-4.9)
[2022-08-16 20:51] LABS: CREATININE 1.3 mg/dL (0.55-1.3)
[2022-08-16 20:52] LABS: BILIRUBIN,TOTAL 0.2 mg/dL (0.2-1); TOT PROT 8.5 g/dl (6.4-8.2)
[2022-08-16 20:56] LABS: N-TERMINAL BNP 76.2 pg/ml (5-450)
[2022-08-16 22:03] LABS: EPI CELLS >36 /uL (0-25.1); HYALINE CASTS 1 /uL (0-3.1); PH,URINE 5.5 (5.0-8.0); URINE APPEARANCE CLOUDY; URINE BACTERIA 123 /uL (0-1359); URINE BILIRUBIN NEGATIVE (NEGATIVE); URINE COLOR YELLOW; URINE GLUCOSE (UA) NEGATIVE (NEGATIVE); URINE KETONE NEGATIVE (NEGATIVE); URINE LEUK ESTERASE 2+ (NEGATIVE); URINE NITRITE NEGATIVE (NEGATIVE); URINE PROTEIN NEGATIVE (NEGATIVE); URINE RBC 17 /uL (0-23.9); URINE UROBILINOGEN 0.2 mg/dL (0.2-1.0); URINE WBC 82 /uL (0-25.8)
[2022-08-16] MEDS ORDERED: CEFTRIAXONE 1 GM/50 ML BAG ONE (23:01)
[2022-08-17 01:38] VITALS: BMI 24.3
[2022-08-17] MEDS ORDERED: ALBUTEROL SO4 HFA INHALER IH PRN (01:45)
[2022-08-17] MEDS ORDERED: DEXTROSE 5%-0.45% SALINE 1,000 ML IV SCH ×2 (01:45→02:10)
[2022-08-17] MEDS: HEPARIN NA (PORCINE) 5,000 UNITS/ML 1ML VIAL SQ SCH ×3 (06:06→21:04)
[2022-08-17] MEDS: LEVOTHYROXINE NA 50 MCG TABLET (FP) PO SCH (06:06)
[2022-08-17 08:56] LABS: BASO % 0.6 % (0-2.0); EOS % 4.1 % (0-4.5); HEMOGLOBIN 11.9 GM/dL (10.7-15.3); LYMPH % 26.8 % (8-40); MCH 32.2 pg (25.7-33.7); MCHC 33.2 g/dl (32.0-36.0); MEAN PLT VOLUME 7.8 fl (7.5-11.1); MONO % 7.1 % (3.8-10.2); NEUT % 61.4 % (42.8-82.8); PLATELET COUNT 359 10^3/uL (134-434); RBC 3.71 M/mm3 (3.60-5.2); WHITE BLOOD COUNT 7.3 K/mm3 (4.0-10.0)
[2022-08-17 09:15] LABS: ALBUMIN 3.8 g/dl (3.4-5.0); BLOOD UREA NITROGEN 30.1 mg/dL (7-18); CALCIUM 9.7 mg/dL (8.5-10.1); MAGNESIUM 2.2 mg/dL (1.8-2.4)
[2022-08-17] MEDS: LOSARTAN POTASSIUM 50 MG TABLET PO SCH (09:15)
[2022-08-17] MEDS: PARoxetine HCL 20 MG TABLET PO SCH ×3 (09:15→21:04)
[2022-08-17] MEDS: PANTOPRAZOLE 40 MG TABLET PO SCH (09:15)
[2022-08-17 09:17] LABS: CREATININE 1.3 mg/dL (0.55-1.3); PHOSPHOROUS 3.7 mg/dL (2.5-4.9)
[2022-08-17 09:19] LABS: BILIRUBIN,TOTAL 0.4 mg/dL (0.2-1); TOT PROT 7.3 g/dl (6.4-8.2)
[2022-08-17 09:21] LABS: CHOLESTEROL 172 mg/dL (50-200)
[2022-08-17 09:22] LABS: LDL CHOLESTEROL (ONLY SJRH) 85 mg/dL (5-100); TRIGLYCERIDES 95 mg/dL (0-150)
[2022-08-17 09:24] LABS: HDL CHOLESTEROL 68 mg/dL (40-60)
[2022-08-17] MEDS ORDERED: PARoxetine HCL 20 MG TABLET PO SCH (10:00)
[2022-08-17] MEDS ORDERED: CEFTRIAXONE 1 GM in DEXTROSE 5%-WATER - 50 ML IVPB SCH (10:00)
[2022-08-17] MEDS: FLUTICASONE PROP 0.05% 16 GM NASAL SPRAY NS SCH (13:05)
[2022-08-17] MEDS: MECLIZINE HCL 25 MG TABLET (FP) PO SCH ×2 (14:01→21:04)
[2022-08-17] MEDS: ATORVASTATIN CA 10 MG TABLET (FP) PO SCH (21:04)
[2022-08-18] MEDS: HEPARIN NA (PORCINE) 5,000 UNITS/ML 1ML VIAL SQ SCH ×3 (06:15→22:09)
[2022-08-18] MEDS: MECLIZINE HCL 25 MG TABLET (FP) PO SCH ×3 (06:15→22:09)
[2022-08-18] MEDS: LEVOTHYROXINE NA 50 MCG TABLET (FP) PO SCH (06:15)
[2022-08-18 08:52] LABS: HEMATOCRIT 35.1 % (32.4-45.2); HEMOGLOBIN 11.8 GM/dL (10.7-15.3); MCH 32.4 pg (25.7-33.7); MCHC 33.6 g/dl (32.0-36.0); MEAN CELL VOLUME 96.4 fl (80-96); MEAN PLT VOLUME 8.2 fl (7.5-11.1); PLATELET COUNT 355 10^3/uL (134-434); RBC 3.64 M/mm3 (3.60-5.2); RDW 13.1 % (11.6-15.6); WHITE BLOOD COUNT 6.5 K/mm3 (4.0-10.0)
[2022-08-18 09:01] LABS: CALCIUM 9.3 mg/dL (8.5-10.1)
[2022-08-18 09:05] LABS: CREATININE 1.4 mg/dL (0.55-1.3)
[2022-08-18] MEDS: PANTOPRAZOLE 40 MG TABLET PO SCH (09:49)
[2022-08-18] MEDS: LOSARTAN POTASSIUM 50 MG TABLET PO SCH (09:49)
[2022-08-18] MEDS: FLUTICASONE PROP 0.05% 16 GM NASAL SPRAY NS SCH (09:50)
[2022-08-18] MEDS: PARoxetine HCL 20 MG TABLET PO SCH (22:09)
[2022-08-18] MEDS: ATORVASTATIN CA 10 MG TABLET (FP) PO SCH (22:09)
[2022-08-19] MEDS: MECLIZINE HCL 25 MG TABLET (FP) PO SCH ×3 (06:36→21:54)
[2022-08-19] MEDS: LEVOTHYROXINE NA 50 MCG TABLET (FP) PO SCH (06:36)
[2022-08-19] MEDS: HEPARIN NA (PORCINE) 5,000 UNITS/ML 1ML VIAL SQ SCH ×3 (06:36→21:55)
[2022-08-19] MEDS: FLUTICASONE PROP 0.05% 16 GM NASAL SPRAY NS SCH (10:17)
[2022-08-19] MEDS: LOSARTAN POTASSIUM 50 MG TABLET PO SCH (10:20)
[2022-08-19] MEDS: PANTOPRAZOLE 40 MG TABLET PO SCH (10:20)
[2022-08-19] MEDS: ATORVASTATIN CA 10 MG TABLET (FP) PO SCH (21:54)
[2022-08-19] MEDS: PARoxetine HCL 20 MG TABLET PO SCH (21:54)
[2022-08-20] MEDS: LEVOTHYROXINE NA 50 MCG TABLET (FP) PO SCH (06:19)
[2022-08-20] MEDS: MECLIZINE HCL 25 MG TABLET (FP) PO SCH ×2 (06:19→13:49)
[2022-08-20] MEDS: HEPARIN NA (PORCINE) 5,000 UNITS/ML 1ML VIAL SQ SCH ×2 (06:19→13:49)
[2022-08-20] MEDS: FLUTICASONE PROP 0.05% 16 GM NASAL SPRAY NS SCH (09:28)
[2022-08-20] MEDS: PANTOPRAZOLE 40 MG TABLET PO SCH (09:28)
[2022-08-20] MEDS: LOSARTAN POTASSIUM 50 MG TABLET PO SCH (09:28)
[2022-08-20 10:13] LABS: HEMATOCRIT 36.3 % (32.4-45.2); MCH 32.3 pg (25.7-33.7); MCHC 33.1 g/dl (32.0-36.0); MEAN CELL VOLUME 97.4 fl (80-96); MEAN PLT VOLUME 8.4 fl (7.5-11.1); PLATELET COUNT 360 10^3/uL (134-434); RBC 3.72 M/mm3 (3.60-5.2); WHITE BLOOD COUNT 7.9 K/mm3 (4.0-10.0)
[2022-08-20 10:42] LABS: ALBUMIN 3.7 g/dl (3.4-5.0); BLOOD UREA NITROGEN 39.4 mg/dL (7-18); CALCIUM 9.5 mg/dL (8.5-10.1)
[2022-08-20 10:44] LABS: CREATININE 1.3 mg/dL (0.55-1.3)
[2022-08-20 10:46] LABS: BILIRUBIN,TOTAL 0.2 mg/dL (0.2-1); TOT PROT 7.4 g/dl (6.4-8.2)
[2022-08-20 18:49] VITALS: BP 129/56; PULSE 77; RESP 19; TEMP 97.5
== END 2022-08-20 19:11 | disposition home or self-care (01) ==
LOC: JER 19:32 → JERBED 22:24 → J4S 08-17 00:24
PROVIDERS: ADMIT Internal Medicine; ATTEND Internal Medicine
PROC: 3E03329 Introduction of Other Anti-infective into Peripheral Vein, Percutaneous Approach (ICD-10-PCS; principal; 2022-08-16)
PROC: 3E0337Z Introduction of Electrolytic and Water Balance Substance into Peripheral Vein, Percutaneous Approach (ICD-10-PCS; 2022-08-16)
PROC: 3E023GC Introduction of Other Therapeutic Substance into Muscle, Percutaneous Approach (ICD-10-PCS; 2022-08-16)
DX: I10 Essential (primary) hypertension (principal); K21.9 Gastro-esophageal reflux disease without esophagitis; E03.9 Hypothyroidism, unspecified; E78.5 Hyperlipidemia, unspecified; N39.0 Urinary tract infection, site not specified; N17.9 Acute kidney failure, unspecified; R29.6 Repeated falls; Z88.2 Allergy status to sulfonamides; Z87.891 Personal history of nicotine dependence
CPT/HCPCS: 0241U-QW; 36415; 70450-TC; 70551-TC; 80048; 80053; 80061; 81003; 82550; 83605; 83735; 83880; 84100; 84439; 84443; 84484; 85025; 85027; 87086; 93005; 93010; 93306-TC; 93880-TC; 96361; 96365; 96372; 96375; 97116-GP; 97161-GP; 99285-25; G0378; J1644